=== PATIENT | male | born 1935 | race Caucasian/White ===

== ENCOUNTER 2016-09-09 18:33 | Emergency (ER) | payer MEDICARE ==
--- NOTE | 2016-09-09 18:46 | ED.PDOC ---
History of Present Illness - General Chief Complaint: General Time Seen by Provider: 09/09/16 18:40 Source: patient, RN notes reviewed, Vital Signs reviewed, family Exam Limitations: no limitations - History of Present Illness Initial Comments: This 81 y/o male has been increasingly weak over the past 2 days. Today, he has been unable to walk very far without feeling like he was going to fall due to weakness. He denies any chest pain. He has a "funny feeling" in his extremities when this happens like when you hit your funny bone. He has a history of NE 4 years ago. Timing/Duration: getting worse, other - 2 days Severity: severe Improving Factors: nothing Worsening Factors: movement Allergies/Adverse Reactions: Allergies NO KNOWN ALLERGY Allergy (Verified 09/09/16 18:47) Home Medications: Ambulatory Orders Cyanocobalamin [Vitamin B-12 Cr] 1,000 mcg PO DAILY 03/04/16 Gabapentin [Neurontin] 100 mg PO BEDTIME 03/04/16 Lovastatin 40 mg PO DAILY 03/04/16 Metoprolol Tartrate 25 mg PO BID 03/04/16 Ramipril [Altace] 5 mg PO DAILY 03/04/16 Tamsulosin [Flomax] 0.4 mg PO DAILY 03/04/16 glyBURIDE [Diabeta] 10 mg PO DAILY 03/04/16 Omeprazole Magnesium [Prilosec Otc] 20 mg PO BID #60 tab 03/05/16 Albuterol Sulfate [Proair Hfa] 2 puff INH Q6H PRN #1 07/23/16 Calcium Carb 500Mg-Vitamin D [Oscal 500mg w/D] 1 ea PO DAILY 07/23/16 Carbonyl Iron [Perfect Iron] 50 mg PO DAILY 07/23/16 Cefuroxime Axetil [Ceftin] 500 mg PO BID #14 tab 07/23/16 Dextromet/Guaifenesin 600/30 T [Mucinex Dm 600/30MG] 1 tab PO BID #30 tab Past Medical History (General) - Patient Medical History Hx Seizures: No Hx Stroke: No Hx Asthma: No Hx of COPD: No Hx Cardiac Disorders: Yes - NE x 2 Hx Congestive Heart Failure: No Hx Pacemaker: No Hx Hypertension: No Hx Diabetes: Yes Hx Cancer: Yes - Prostate Hx MRSA: No - Vaccination History Hx Tetanus, Diphtheria Vaccination: Yes Hx Influenza Vaccination: Yes Hx Pneumococcal Vaccination: Yes - Social History Hx Tobacco Use: No Hx Alcohol Use: No Hx Substance Use: No Hx Physical Abuse: No Hx Emotional Abuse: No Family Medical History - Family History Father Family History: Unknown Living Status: Hx Family Cancer: Yes - unknown cause Physical Exam - Physical Exam General Appearance: Alert, No apparent distress Ears, Nose, Throat: hearing grossly normal Respiratory: lungs clear, normal breath sounds, no respiratory distress, no accessory muscle use Cardiovascular/Chest: regular rate, rhythm, no edema, no gallop, systolic murmur - II/ Gastrointestinal/Abdominal: normal bowel sounds, non tender, soft, no organomegaly, no pulsatile mass Extremity: non-tender, normal inspection, no pedal edema, no calf tenderness, other - Normal strength all four extremities Neurologic: no motor/sensory deficits, alert, normal mood/affect, oriented x 3 Skin Exam: normal color, warm/dry Progress - Results/Orders Results/Orders: 09/09/16 09/09/16 09/09/16 18:47 19:29 21:08 Temperature 98 F Pulse Rate [ 68 56 L 66 Left Radial] Respiratory 18 18 16 Rate Blood Pressure 148/79 150/71 128/64 [Left Arm] O2 Sat by Pulse 92 L 92 L 92 L Oximetry 09/09/16 21:59 Temperature Pulse Rate [ 62 Left Radial] Respiratory 16 Rate Blood Pressure 139/74 [Left Arm] O2 Sat by Pulse 100 Oximetry 09/09/16 21:45 EKG STAT 09/09/16 21:50 Magnesium Sulfate Premix 2Gm 2 gm Premix Bag 1 bag IVPB ONCE Laboratory Results WBC 7.1 K/mm3 (4.8-10.8) 09/09/16 18:55 RBC 3.94 M/mm3 (4.70-6.10) L 09/09/16 18:55 Hgb 12.9 gm/dL (14.0-18.0) L 09/09/16 18:55 Hct 38.6 % (42.0-52.0) L 09/09/16 18:55 MCV 98.1 fl (80.0-94.0) H 09/09/16 18:55 MCH 32.7 pg (27.0-31.0) H 09/09/16 18:55 MCHC 33.4 g/dL (33.0-37.0) 09/09/16 18:55 RDW 14.5 % (11.5-14.5) 09/09/16 18:55 Plt Count 153 K/mm3 (130-400) 09/09/16 18:55 MPV 7.9 fl (7.40-10.4) 09/09/16 18:55 Absolute Neuts (auto) 4.30 K/uL (1.8-6.8) 09/09/16 18:55 Absolute Lymphs (auto) 2.00 K/uL (1.0-3.4) 09/09/16 18:55 Absolute Monos (auto) 0.70 K/uL (0.2-0.8) 09/09/16 18:55 Absolute Eos (auto) 0.10 K/uL (0.0-0.4) 09/09/16 18:55 Absolute Basos (auto) 0.00 K/uL (0.0-0.1) 09/09/16 18:55 Neutrophils % 60.2 % (42.0-78.0) 09/09/16 18:55 Lymphocytes % 28.0 % (20.0-50.0) 09/09/16 18:55 Monocytes % 10.1 % (2.0-9.0) H 09/09/16 18:55 Eosinophils % 1.1 % (1.0-5.0) 09/09/16 18:55 Basophils % 0.6 % (0.0-2.0) 09/09/16 18:55 PT 12.6 SECONDS (9.4-12.5) H 09/09/16 18:55 INR 1.120 09/09/16 18:55 PTT (SP) 34.2 SECONDS (25.1-36.5) 09/09/16 18:55 Sodium 137 mmol/L (135-145) 09/09/16 18:55 Potassium 3.8 mmol/L (3.6-5.0) 09/09/16 18:55 Chloride 104 mmol/L (101-111) 09/09/16 18:55 Carbon Dioxide 27 mmol/L (21-31) 09/09/16 18:55 Anion Gap 9.8 (12-18) L 09/09/16 18:55 BUN 17 mg/dL (7-18) 09/09/16 18:55 Creatinine 1.40 mg/dL (0.6-1.3) H 09/09/16 18:55 BUN/Creatinine Ratio 12.1 (10-20) 09/09/16 18:55 Random Glucose 119 mg/dL (70-105) H 09/09/16 18:55 Serum Osmolality 276.5 mOsm/L (275-295) 09/09/16 18:55 Calcium 9.1 mg/dL (8.4-10.2) 09/09/16 18:55 Magnesium 1.6 mg/dL (1.8-2.5) L 09/09/16 18:55 Total Bilirubin 0.5 mg/dL (0.2-1.0) 09/09/16 18:55 Direct Bilirubin 0.1 mg/dL (0-0.2) 09/09/16 18:55 Indirect Bilirubin 0.4 mg/dL (0.2-0.8) 09/09/16 18:55 AST 25 IU/L (10-42) 09/09/16 18:55 ALT 11 IU/L (10-60) 09/09/16 18:55 Alkaline Phosphatase 44 IU/L (42-121) 09/09/16 18:55 Creatine Kinase 95 IU/L (38-174) 09/09/16 21:55 CK-MB (CK-2) 2.8 ng/mL (0.0-4.4) 09/09/16 21:55 CK-MB (CK-2) % Not Reportable 09/09/16 21:55 Troponin I 0.02 ng/mL (0.01-0.05) 09/09/16 21:55 B-Natriuretic Peptide 503.0 pg/ml (0-100) H* 09/09/16 18:55 Serum Total Protein 8.6 gm/dL (6.4-8.2) H 09/09/16 18:55 Albumin 3.1 g/dl (3.2-5.5) L 09/09/16 18:55 Urine Color Yellow (Yellow) 09/09/16 19:15 Urine Appearance Clear (Clear) 09/09/16 19:15 Urine pH 6.0 (4.5-7.8) 09/09/16 19:15 Ur Specific [place] 1.010 (1.005-1.030) 09/09/16 19:15 Urine Protein 30 mg/dL 09/09/16 19:15 Urine Glucose (UA) Negative mg/dL (Negative) 09/09/16 19:15 Urine Ketones Negative mg/dL (NEGATIVE) 09/09/16 19:15 Urine Blood Moderate (Negative) H 09/09/16 19:15 Urine Nitrite Negative 09/09/16 19:15 Urine Bilirubin Negative (NEGATIVE) 09/09/16 19:15 Urine Urobilinogen 0.2 mg/dL (0.2-1.0) 09/09/16 19:15 Ur Leukocyte Esterase Negative (Negative) 09/09/16 19:15 Urine RBC 5-10 /hpf H 09/09/16 19:15 Urine WBC 0-1 /hpf 09/09/16 19:15 Ur Epithelial Cells 0-1 /hpf 09/09/16 19:15 Urine Bacteria 0 09/09/16 19:15 - EKG/XRAY/CT EKG: Sinus - 64 bpm, nonspecific ST T wave Chg - T-wave inversion in II, III, aVF, Unchanged from - 04/20/2014 and 02/07/2014 Comments: Nonspecific intraventricular block, Normal axis, Abn EKG XRAY: chest Xray Comments: No acute process - Additional EKG/XRAY/Consults EKG #2: Sinus - 64, nonspecific ST T wave Chg - T-wave inversion II, III, aVF, Nonspecific intraventricular block, Abn EKG, Unchanged from - EKG #1 Departure - Departure Clinical Impression: Generalized weakness, Hypomagnesemia, Acute renal insufficiency, Elevated brain natriuretic peptide (BNP) level Time of Disposition: 22:53 Disposition: Discharge to Home or Self Care Condition: Good Departure Forms: ED Discharge - Pt. Copy, Patient Portal Self Enrollment Diet: diabetic diet, low salt diet Referrals: Britton Miller MD [Primary Care Provider] - 1-2 Days (Patient with episodic weakness. Elevated BNP, renal insufficiency, hypomagnesemia. Magnesium 1 gm infused.) Home Medications: Ambulatory Orders Cyanocobalamin [Vitamin B-12 Cr] 1,000 mcg PO DAILY 03/04/16 Gabapentin [Neurontin] 100 mg PO BEDTIME 03/04/16 Lovastatin 40 mg PO DAILY 03/04/16 Metoprolol Tartrate 25 mg PO BID 03/04/16 Ramipril [Altace] 5 mg PO DAILY 03/04/16 Tamsulosin [Flomax] 0.4 mg PO DAILY 03/04/16 glyBURIDE [Diabeta] 10 mg PO DAILY 03/04/16 Omeprazole Magnesium [Prilosec Otc] 20 mg PO BID #60 tab 03/05/16 Albuterol Sulfate [Proair Hfa] 2 puff INH Q6H PRN #1 07/23/16 Calcium Carb 500Mg-Vitamin D [Oscal 500mg w/D] 1 ea PO DAILY 07/23/16 Carbonyl Iron [Perfect Iron] 50 mg PO DAILY 07/23/16 Cefuroxime Axetil [Ceftin] 500 mg PO BID #14 tab 07/23/16 Dextromet/Guaifenesin 600/30 T [Mucinex Dm 600/30MG] 1 tab PO BID #30 tab Additional Instructions: Follow up with your PCP tomorrow for further evaluation. Follow up in ED if symptoms return.
[2016-09-09 18:52] VITALS: TEMP 98
--- NOTE | 2016-09-09 19:16 | RAD ---
EXAM DESCRIPTION: Chest,1 View CLINICAL HISTORY: weakness/hx of mi COMPARISON: July 23, 2016 FINDINGS: Cardiac silhouette is within normal limits. Aorta is tortuous. There is atherosclerosis. Nodular opacity projecting between the fifth and sixth right anterior ribs suggests a nipple shadow. There is mild elevation of the left hemidiaphragm, unchanged compared with the prior exam. There is no focal parenchymal or pleural disease. There is no acute osseous process visualized. IMPRESSION: No evidence of acute cardiopulmonary disease. Electronically signed by: Jak Reinoso MD 09/09/2016 5:16 PM PST
[2016-09-09] MEDS ORDERED: MAGNESIUM SULFATE PREMIX 2GM 2 GM in PREMIX BAG 1 BAG IVPB ONE (21:50)
[2016-09-09] MEDS ORDERED: MAGNESIUM SULFATE PREMIX 2GM 50 ML IVPB ONE (21:53)
[2016-09-09 23:05] VITALS: BP 135/72; O2SAT 99
== END 2016-09-09 23:05 | disposition home or self-care (01) ==
LOC: ER 18:33
DX: E83.42 Hypomagnesemia (principal); N28.9 Disorder of kidney and ureter, unspecified; R79.89 Other specified abnormal findings of blood chemistry; I25.2 Old myocardial infarction; E11.9 Type 2 diabetes mellitus without complications; Z85.46 Personal history of malignant neoplasm of prostate; Z79.899 Other long term (current) drug therapy; I45.4 Nonspecific intraventricular block
CPT/HCPCS: 36415; 71010; 80048; 80076; 81001; 82550; 82553; 83880; 84484; 85025; 85610; 85730; 93005; J3475

== ENCOUNTER → 2016-09-10 | Outpatient (CLI) | payer MEDICARE | LOC: GMAM 16:52 | PROVIDERS: ATTEND Family Medicine | DX: R31.21 Asymptomatic microscopic hematuria (principal); N17.9 Acute kidney failure, unspecified ==

== ENCOUNTER → 2016-09-16 | Outpatient (CLI) | payer MEDICARE ==
--- NOTE | 2016-09-16 11:40 | CT ---
EXAM DESCRIPTION: CT ABDOMEN PELVIS WITHOUT THEN WITH IV CONTRAST CLINICAL HISTORY: 81 y/o M, ACUTE RENAL INSUFFIENCY COMPARISON: May 2014 TECHNIQUE: Prior to and after the administration of IV contrast volumetric imaging of the abdomen was performed. FINDINGS: Large right lower pole renal stone measuring 1.2 cm in diameter. Tiny 2 mm left mid segment renal stone. The spleen, bilateral adrenal glands and pancreas are unremarkable peer bilateral kidneys enhance unremarkably. No mass noted. Bilateral extra renal pelvises. The liver demonstrates no evidence of mass. Gallbladder is present. Atherosclerotic disease noted within an ectatic infrarenal abdominal aorta. Prostate radiation beads noted. The prostate is enlarged measuring 5.2 cm in diameter. Urinary bladder is unremarkable. No pulmonary mass or nodule is seen within bilateral lung bases. Inflammatory changes seen adjacent to large thoracic osteophytes within the medial right lung base. IMPRESSION: Large 1.2 cm right lower pole renal stone. 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 Electronically signed by: Jhonny Nova MD 09/16/2016 11:38
== END ==
LOC: CT 08:51
PROVIDERS: ATTEND Family Medicine
DX: N17.9 Acute kidney failure, unspecified (principal); N20.0 Calculus of kidney; I70.0 Atherosclerosis of aorta; M47.896 Other spondylosis, lumbar region

== ENCOUNTER → 2016-09-23 | Outpatient (CLI) | payer MEDICARE | END | disposition home or self-care (01) | LOC: GMAM 15:55 | PROVIDERS: ATTEND Family Medicine | DX: E83.42 Hypomagnesemia (principal) ==

== ENCOUNTER → 2016-10-01 | Outpatient (CLI) | payer MEDICARE | END | disposition home or self-care (01) | LOC: GMAM 11:20 | PROVIDERS: ATTEND Family Medicine | DX: R77.8 Other specified abnormalities of plasma proteins (principal) ==

== ENCOUNTER → 2016-10-02 | Outpatient (CLI) | payer MEDICARE ==
--- NOTE | 2016-10-03 09:03 | RAD ---
EXAM DESCRIPTION: Abdomen radiography. CLINICAL HISTORY: Renal stone COMPARISON: September 16, 2016 TECHNIQUE: One view. FINDINGS: Large right renal calcifications measuring 12 mm in diameter again noted. Bowel gas pattern is non-obstructed. There is no obvious free intraperitoneal air. Visualized segments of the abdominal organs are unremarkable. No suspicious bone lesion or fracture is seen. IMPRESSION: Large 12 mm right renal calculus noted. A fair amount of air is noted within the colon and small bowel. Electronically signed by: Jhonny Nova MD 10/03/2016 09:02
== END | disposition home or self-care (01) ==
LOC: RAD 14:55
PROVIDERS: ATTEND Urology
DX: N20.0 Calculus of kidney (principal); Z12.5 Encounter for screening for malignant neoplasm of prostate

== ENCOUNTER 2016-10-16 12:07 | Emergency (ER) | payer MEDICARE ==
[2016-10-16] MEDS ORDERED: ASPIRIN TABLET 325 MG TAB PO ONE (12:24)
[2016-10-16] MEDS ORDERED: FUROSEMIDE INJ 40 MG/4 ML VIAL IV ONE (12:24)
[2016-10-16] MEDS ORDERED: NITROGLYCERIN/D5W IV 250 ML IVS ONE (12:27)
[2016-10-16] MEDS ORDERED: SODIUM CHLORIDE 0.9% 500ML 500 ML ONE (12:28)
[2016-10-16 12:31] VITALS: TEMP 98.8
--- NOTE | 2016-10-16 12:47 | RAD ---
Study: Single Frontal View of the Chest. Indication:sob, chest pain Comparison: September 09, 2016. Impression: Moderate cardiomegaly. Thoracic aorta tortuous. Mild interstitial edema. Mild basilar opacities, which may relate to pneumonia or atelectasis. Short-term follow up recommended. Tiny right pleural effusion. No pneumothorax. Electronically signed by: Antonio Dominguez MD 10/16/2016 12:46 PM EXERCISE SPECIALIST
[2016-10-16] MEDS ORDERED: SODIUM CHLORIDE 0.9% 500ML 500 ML IVS PRN (12:48)
[2016-10-16] MEDS ORDERED: NITROGLYCERIN/D5W IV 250 ML IVS SCH (13:00)
[2016-10-16] MEDS ORDERED: fentaNYL CITRATE INJ 50 MCG/ML AMP IV ONE (13:41)
[2016-10-16] MEDS ORDERED: ONDANSETRON INJ 4 MG/2 ML VIAL IV ONE (13:43)
[2016-10-16] MEDS ORDERED: HEPARIN SODIUM (PORCINE) 5,000 U/ML VIAL IV ONE (14:06)
--- NOTE | 2016-10-16 14:17 | ED.PDOC ---
History of Present Illness - General Chief Complaint: Respiratory Problem Stated Complaint: shortness of breath,left sided chest pain Time Seen by Provider: 10/16/16 12:12 Source: patient Exam Limitations: no limitations - History of Present Illness Initial Comments: the patient is an 81-year-old male presenting to the emergency room secondary to chest pain and shortness of breath. He started developing chest pain yesterday that is precordial and squeezing. This has progressed to significant shortness of breath with the production of clear white sputum. He is more short of breath with activity and with lying back. He is in significant distress upon arrival. Oxygen saturations on room air upon arrival are around 80%. Oxygen at 6 L nasal cannula only brought up the oxygen saturations to around 83%. The patient has coarse wet rales bilaterally. He has increased accessory muscle use. He has nasal flaring. He is obviously anxious. He is writing the chest pain at approximately a 8-9 out of 10 at its worst. No syncope. He has felt palpitations. Telemetry monitoring does show atrial fibrillation with frequent PVCs initially. After oxygenating the patient has reverted back to a sinus rhythm with PACs. Timing/Duration: 24 hours Severity: severe Improving Factors: nothing Worsening Factors: movement Associated Symptoms: diaphoresis, malaise, shortness of breath, weakness Allergies/Adverse Reactions: Allergies NO KNOWN ALLERGY Allergy (Verified 09/09/16 18:47) Home Medications: Ambulatory Orders Cyanocobalamin [Vitamin B-12 Cr] 1,000 mcg PO DAILY 03/04/16 Gabapentin [Neurontin] 100 mg PO BEDTIME 03/04/16 Lovastatin 40 mg PO DAILY 03/04/16 Metoprolol Tartrate 25 mg PO BID 03/04/16 Ramipril [Altace] 5 mg PO DAILY 03/04/16 Tamsulosin [Flomax] 0.4 mg PO DAILY 03/04/16 glyBURIDE [Diabeta] 10 mg PO DAILY 03/04/16 Omeprazole Magnesium [Prilosec Otc] 20 mg PO BID #60 tab 03/05/16 Albuterol Sulfate [Proair Hfa] 2 puff INH Q6H PRN #1 07/23/16 Calcium Carb 500Mg-Vitamin D [Oscal 500mg w/D] 1 ea PO DAILY 07/23/16 Carbonyl Iron [Perfect Iron] 50 mg PO DAILY 07/23/16 Cefuroxime Axetil [Ceftin] 500 mg PO BID #14 tab 07/23/16 Dextromet/Guaifenesin 600/30 T [Mucinex Dm 600/30MG] 1 tab PO BID #30 tab Review of Systems - Review of Systems Constitutional: States: diaphoresis, malaise, weakness EENTM: States: no symptoms reported Respiratory: States: cough, orthopnea, short of breath Cardiology: States: chest pain, palpitations. Denies: edema, syncope Gastrointestinal/Abdominal: States: nausea - mild Genitourinary: States: no symptoms reported Musculoskeletal: States: no symptoms reported Skin: States: no symptoms reported Neurological: States: anxiety Endocrine: States: excessive sweating All other Systems: No Change from Baseline Past Medical History (General) - Patient Medical History Hx Seizures: No Hx Stroke: No Hx Dementia: No Hx Asthma: No Hx of COPD: No Hx Cardiac Disorders: Yes - [place] x 2 Hx Congestive Heart Failure: No Hx Pacemaker: No Hx Hypertension: No Hx Thyroid Disease: No Hx Diabetes: Yes Hx Gastroesophageal Reflux: Yes Hx Renal Disease: No Hx Cancer: Yes - Prostate Hx of HIV: No Hx Hepatitis C: No Hx MRSA: No - Vaccination History Hx Tetanus, Diphtheria Vaccination: Yes Hx Influenza Vaccination: Yes Hx Pneumococcal Vaccination: Yes - Social History Hx Tobacco Use: Yes Hx Chewing Tobacco Use: No Hx Alcohol Use: No Hx Substance Use: No Hx Substance Use Treatment: No Hx Depression: No Hx Physical Abuse: No Hx Emotional Abuse: No Hx Suspected Abuse: No - Female History Patient : No Family Medical History - Family History Father Family History: Unknown Living Status: Hx Family Cancer: Yes - unknown cause Physical Exam - Physical Exam General Appearance: Alert, Anxious, Obvious distress Eye Exam: bilateral normal Ears, Nose, Throat: normal ENT inspection, normal pharynx Neck: full range of motion, supple, other - the patient does have obvious JVD Respiratory: chest non-tender, other - coarse breath sounds bilaterally. Significant accessory muscle use. Significant respiratory distress. No wheezes. 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 The patient is found to be in pulmonary edema with significant respiratory distress. The patient has required BiPAP with a gradually been able to titrate down from 100% FiO2 to 60% FiO2. Symptoms are improving. The patient has received a dose of Lasix and has diuresed approximately 600 cc. Due to the chest pain the patient was started on IV nitroglycerin which has also helped. The patient is receiving a dose of IV heparin. He has received a dose of IV fentanyl. Chest pain is improving and respiratory status is improving. He is still running his chest pain at a 2/10 at this time. Diagnosis is pulmonary edema and unstable angina. He has received an aspirin. I have discussed the patient with Dr. Armendariz as well as the supervisor public message service. The patient will be transferred for higher level of care. 10/16/16 14:22 critical care time spent with this patient 50 minutes on not otherwise billable procedures. - Results/Orders Results/Orders: 10/16/16 12:23 Telemetry .CONTINUOUS 10/16/16 12:48 Sodium Chloride 0.9% 500Ml [NS 500ml] 500 ml IVS .KVO 10/16/16 13:00 Nitroglycerin/D5w IV 250 ml IVS PRN 10/16/16 14:00 EKG STAT several EKGs have been performed. The initial shows atrial fibrillation with mild rapid ventricular rate with PACs. After oxygen and started the patient appears to be cardioverting back to a sinus rhythm with frequent PVCs and PACs with these gradually. Now. There is some significant widening of the QRS complex in comparison to EKG from 1 month ago. No definite ST segment elevation or depression and initial EKGs however artifact from respiratory distress makes it somewhat difficult to interpret. He does have a left bundle-branch block. He does have corresponding left axis deviation. Laboratory Results - last 24 hr 10/16/16 10/16/16 12:40 13:49 WBC 10.5 RBC 3.97 L Hgb 13.0 L Hct 39.1 L MCV 98.3 H MCH 32.7 H MCHC 33.4 RDW 14.4 Plt Count 160 MPV 8.0 Absolute Neuts (auto) 6.80 Absolute Lymphs (auto) 2.80 Absolute Monos (auto) 0.80 Absolute Eos (auto) 0.10 Absolute Basos (auto) 0.00 Neutrophils % 64.8 Lymphocytes % 26.4 Monocytes % 8.0 Eosinophils % 0.6 L Basophils % 0.2 PT 12.6 H INR 1.120 PTT (SP) 29.8 D-Dimer, Quantitative 235 H* Sodium 139 Potassium 3.8 Chloride 104 Carbon Dioxide 27 Anion Gap 11.8 L BUN 16 Creatinine 0.94 BUN/Creatinine Ratio 17.0 POC Glucose 188 H Random Glucose 176 H Serum Osmolality 283.0 Calcium 9.1 Magnesium 1.6 L Total Bilirubin 0.5 AST 20 ALT 12 Alkaline Phosphatase 49 Creatine Kinase 86 CK-MB (CK-2) 2.8 CK-MB (CK-2) % Not Reportable Troponin I < 0.02 B-Natriuretic Peptide 672.0 H* Serum Total Protein 9.0 H Albumin 3.2 Globulin 5.8 H Albumin/Globulin Ratio 0.6 L chest x-ray is consistent with pulmonary edema with a small right-sided pleural effusion. No obvious pneumonia. Departure - Departure Clinical Impression: Unstable angina Pulmonary edema Qualifiers: Chronicity: acute Qualifier Code: (J81.0) Acute pulmonary edema Disposition: Transfer to Hospital Condition: Serious Home Medications: Ambulatory Orders Cyanocobalamin [Vitamin B-12 Cr] 1,000 mcg PO DAILY 03/04/16 Gabapentin [Neurontin] 100 mg PO BEDTIME 03/04/16 Lovastatin 40 mg PO DAILY 03/04/16 Metoprolol Tartrate 25 mg PO BID 03/04/16 Ramipril [Altace] 5 mg PO DAILY 03/04/16 Tamsulosin [Flomax] 0.4 mg PO DAILY 03/04/16 glyBURIDE [Diabeta] 10 mg PO DAILY 03/04/16 Omeprazole Magnesium [Prilosec Otc] 20 mg PO BID #60 tab 03/05/16 Albuterol Sulfate [Proair Hfa] 2 puff INH Q6H PRN #1 07/23/16 Calcium Carb 500Mg-Vitamin D [Oscal 500mg w/D] 1 ea PO DAILY 07/23/16 Carbonyl Iron [Perfect Iron] 50 mg PO DAILY 07/23/16 Cefuroxime Axetil [Ceftin] 500 mg PO BID #14 tab 07/23/16 Dextromet/Guaifenesin 600/30 T [Mucinex Dm 600/30MG] 1 tab PO BID #30 tab Transfer to Outside Facility - Transfer Information Accepting Provider:: dr thrasher Accepting Facility: [facility] Reason for Transfer: ICU
[2016-10-16] MEDS ORDERED: METOPROLOL TARTRATE 25 MG TAB PO ONE (15:56)
[2016-10-16 18:11] VITALS: BP 128/69; O2SAT 92
== END 2016-10-16 16:50 | disposition short-term general hospital (02) ==
LOC: ER 12:07
DX: I20.0 Unstable angina (principal); J81.0 Acute pulmonary edema; E11.9 Type 2 diabetes mellitus without complications; K21.9 Gastro-esophageal reflux disease without esophagitis; Z85.46 Personal history of malignant neoplasm of prostate; Z87.891 Personal history of nicotine dependence; I25.2 Old myocardial infarction; Z79.899 Other long term (current) drug therapy; I44.7 Left bundle-branch block, unspecified
CPT/HCPCS: 36415; 36416; 71010; 80053; 82550; 82553; 82948; 83735; 83880; 84484; 85025; 85379; 85610; 85730; 93005; 94660; J1644; J1940; J2405; J3010; J7040

== ENCOUNTER → 2016-12-04 | Outpatient (CLI) | payer MEDICARE | END | disposition home or self-care (01) | LOC: GRHH 08:56 | PROVIDERS: ATTEND Family Medicine | DX: E11.9 Type 2 diabetes mellitus without complications (principal) ==

== ENCOUNTER → 2016-12-11 | Outpatient (CLI) | payer MEDICARE ==
--- NOTE | 2016-12-11 19:10 | CT ---
EXAM DESCRIPTION: Chest w/Contrast CLINICAL HISTORY: 81 years,Male,OTHER ABNORMAL SPECIFIC FINDING COMPARISON: None TECHNIQUE: Multiple axial helical tomographic images were obtained of the chest with IV contrast and then reconstructed in the sagittal and coronal plane FINDINGS: Demonstrate a small opacity in the medial right base measuring 1.4 cm about this in size. And runs in a linear plane paralleling the spine. There are some very small miliary nodular density seen in the posterior left base and to a lesser degree the posterior right base. No other consolidations or effusions. No pneumothoraces. Mediastinum demonstrates no adenopathy or masses. Heart size and pulmonary vascularity are unremarkable. But there is heavy calcified coronary arteries Upper abdominal organs included in the exam are unremarkable. Soft tissues and bony elements are unremarkable. Right posterior mid back 1.2 cm dermal cyst IMPRESSION: Small opacification in the medial right base. An multiple tiny nodular densities in both posterior bases worse than left. Recommend follow-up CT scan in 3-6 months. This could be just scarring in addition to past or current atypical infection cannot include neoplasm Electronically signed by: Devyn Ngo MD 12/11/2016 7:09 PM CDT
== END ==
LOC: CT 08:41
PROVIDERS: ATTEND Family Medicine
DX: J44.0 Chronic obstructive pulmonary disease with (acute) lower respiratory infection (principal); R91.8 Other nonspecific abnormal finding of lung field

== ENCOUNTER 2016-12-13 10:48 | Inpatient (IN) | payer MEDICARE ==
--- NOTE | 2016-12-13 11:39 | CT ---
EXAM DESCRIPTION: Head CLINICAL HISTORY: 81 years, Male, ams COMPARISON: February 07, 2014 TECHNIQUE: Head CT was performed without IV contrast. This exam was performed according to our departmental dose-optimization program, which includes automated exposure control, adjustment of the mA and/or kV according to patient size and/or use of iterative reconstruction technique. FINDINGS: There is no acute intracranial hemorrhage. Generalized age-appropriate volume loss is noted with mild ex vacuo prominence of the ventricular system. No posterior fossa lesion. Chronic ischemic changes are noted in the perirenal right matter, but there is no cortical edema or sulcal effacement to suggest acute cortical infarct. The basal ganglia are unremarkable. There is some benign-appearing calcification along the falx. Vascular calcifications are noted. Visualized paranasal sinuses and orbits are unremarkable. Is no calvarial lesion. IMPRESSION: Generalized age-appropriate volume loss, vascular calcifications and chronic ischemic changes, but no acute intracranial abnormality. If symptoms persist or worsen, followup head CT in 24 hr or MRI is recommended. Electronically signed by: Ramakrishna Pierre MD 12/13/2016 11:38 AM CDT
--- NOTE | 2016-12-13 11:43 | RAD ---
EXAM DESCRIPTION: Chest,1 View CLINICAL HISTORY: ams COMPARISON: October 16, 2016 IMPRESSION: Single AP portable upright view of the chest shows mild enlargement of the cardiac silhouette without pulmonary vascular congestion. Calcifications of a tortuous thoracic aorta are seen. Lungs are normally aerated with chronic appearing increased interstitial changes more prominent in the left lower lobe. No new infiltrates or consolidations are seen. No obvious pleural effusion or pneumothorax is seen. Electronically signed by: Ulises Ji MD 12/13/2016 11:43 AM CDT
[2016-12-13] MEDS ORDERED: SODIUM CHLORIDE 0.9% 1000ML 500 ML IVS ONE (12:10)
[2016-12-13] MEDS ORDERED: cefTRIAXone SODIUM 1 GM in SODIUM CHL 0.9% 50ML MIN-BAG+ 50 ML IVPB ONE (12:10)
[2016-12-13] MEDS ORDERED: cefTRIAXone SODIUM 1 GM VIAL ONE (12:16)
--- NOTE | 2016-12-13 15:32 | ED.PDOC ---
History of Present Illness - General Chief Complaint: Neuro Symptoms/Deficits Stated Complaint: Falls x 2. Change in level of consciousness Time Seen by Provider: 12/13/16 11:01 Source: patient Exam Limitations: no limitations - History of Present Illness Initial Comments: The patient is an 81-year-old male brought in by his family this morning secondary to altered mental status. The patient has had several falls in the last few days. He has shown some increasing confusion over the last 24- 48 hours. There've been no fevers. He has not been complaining of pain. There has been questionable use of his sleeping medications. He has not had any chest pain, fever or headache. No focal neurological changes. No feeling of palpitations. He does however have some difficulty with urinating and does have some suprapubic discomfort palpation over what is obviously a distended bladder. The patient apparently spent the night in a laundry basket. At some point he had gotten up and falling into the laundry basket and was unable to get out. About 1-2 months ago additionally the patient was sent to [facility] for sepsis with associated congestive heart failure. It is likely that he does have an ischemic cardiomyopathy and Dr. Armendariz does want to do a workup on the patient however not while he has other processes going. The source of sepsis a few months ago was a pneumonia. The patient also has a history of BPH and has been having some difficulty with urination for some time. Timing/Duration: 24 hours Severity: moderate Improving Factors: nothing Worsening Factors: nothing Associated Symptoms: malaise, weakness Allergies/Adverse Reactions: Allergies NO KNOWN ALLERGY Allergy (Verified 09/09/16 18:47) Home Medications: Ambulatory Orders Cyanocobalamin [Vitamin B-12 Cr] 1,000 mcg PO DAILY 03/04/16 Lovastatin 40 mg PO DAILY 03/04/16 Metoprolol Tartrate 25 mg PO BID 03/04/16 Ramipril [Altace] 5 mg PO DAILY 03/04/16 Tamsulosin [Flomax] 0.4 mg PO DAILY 03/04/16 glyBURIDE [Diabeta] 10 mg PO DAILY 03/04/16 Omeprazole Magnesium [Prilosec Otc] 20 mg PO BID #60 tab 03/05/16 Calcium Carb 500Mg-Vitamin D [Oscal 500mg w/D] 1 ea PO DAILY 07/23/16 Carbonyl Iron [Perfect Iron] 50 mg PO DAILY 07/23/16 Umeclidinium-Vilanterol [Anoro Ellipta 62.5-25 Mcg/INH] 1 aer INH DAILY Review of Systems - Review of Systems Constitutional: States: malaise, weakness EENTM: States: no symptoms reported Respiratory: States: no symptoms reported Cardiology: States: no symptoms reported Gastrointestinal/Abdominal: States: abdominal pain - suprapubic due to urinary retention Genitourinary: States: see HPI Musculoskeletal: States: muscle pain - from being in a laundry basket all night Skin: States: no symptoms reported Neurological: States: anxiety, other - delirium Endocrine: States: no symptoms reported All other Systems: No Change from Baseline Past Medical History (General) - Patient Medical History Hx Seizures: No Hx Stroke: No Hx Dementia: No Hx Asthma: No Hx of COPD: No Hx Cardiac Disorders: Yes - VT x 2 Hx Congestive Heart Failure: No Hx Pacemaker: No Hx Hypertension: No Hx Thyroid Disease: No Hx Diabetes: Yes Hx Gastroesophageal Reflux: Yes Hx Renal Disease: No Hx Cancer: Yes - Prostate Hx of HIV: No Hx Hepatitis C: No Hx MRSA: No - Vaccination History Hx Tetanus, Diphtheria Vaccination: Yes Hx Influenza Vaccination: Yes Hx Pneumococcal Vaccination: Yes - Social History Hx Tobacco Use: Yes Hx Chewing Tobacco Use: No Hx Alcohol Use: No Hx Substance Use: No Hx Substance Use Treatment: No Hx Depression: No Hx Physical Abuse: No Hx Emotional Abuse: No Hx Suspected Abuse: No - Female History Patient : No Family Medical History - Family History Father Family History: Unknown Living Status: Hx Family Cancer: Yes - unknown cause Physical Exam - Physical Exam General Appearance: Lethargic - the patient is drowsy but arousable and cooperative. He knows he is at the [facility]. He recognizes his family members. He went to know if he is hurting anywhere. He is unable to urinate on his own even though he is trying. He is very weak with attempting to ambulate. He does become easily confused. Eye Exam: right normal Ears, Nose, Throat: hearing grossly normal, normal ENT inspection - nevus membranes are mildly dry, other - no evidence of head trauma Neck: non-tender, full range of motion, supple, other - o tenderness to palpation. No obvious trauma. No meningeal signs. Respiratory: chest non-tender, lungs clear, normal breath sounds, no respiratory distress, no accessory muscle use Cardiovascular/Chest: normal peripheral pulses, regular rate, rhythm, no edema Peripheral Pulses: radial,right: 2+, radial,left: 2+, dorsalis pedis,right: 2+, dorsalis pedis,left: 2+ Gastrointestinal/Abdominal: soft, other - bladder is uncomfortable to palpation but otherwise nontender to palpation of the abdomen Rectal Exam: deferred Back Exam: normal inspection, no vertebral tenderness, other - the patient is a little bit sore in palpating the area that was apparently against a laundry basket Extremity: normal range of motion, non-tender, normal inspection, no pedal edema , no calf tenderness, normal capillary refill Neurologic: alert, normal mood/affect, oriented x 3 Skin Exam: normal color Comments: Vital Signs - 24 hr 12/13/16 13:07 Pulse Rate [ 96 H Apical] Respiratory 18 Rate Blood Pressure 118/71 [Right Arm] O2 Sat by Pulse 95 Oximetry Progress - Progress Progress: 12/13/16 15:40 the patient is an 81-year-old male presenting with a complicated clinical picture. The patient is obviously having some lethargy and at least some mild delirium. The source of this is not entirely certain. It is possible he may have some mild early sepsis from an unknown source. His lungs and urine do appear fairly clear. The patient has been cultured. He has been started on Rocephin. He has received a small IV fluid bolus as he was significantly dehydrated. The patient is receiving a bilateral lower extremity ultrasound due to the fact that he was in a laundry basket overnight which places him at high risk for the development of a DVT. The patient does have elevated muscle enzymes which are at least mostly due to rhabdomyolysis from his multiple falls including being stuck in a laundry basket overnight. The elevated troponin is most likely an insult due to acute illness rather than acute coronary syndrome. He does likely have some coronary artery disease. The patient has been discussed with Dr. Armendariz his dedicated regional driver who would not recommend any acute cardiac intervention at this time. We will give Lovenox to the patient for this reason as well as for the potential for the development of a DVT with him being immobilized overnight. No Plavix is being given. The patient is receiving an aspirin. Vital signs have remained stable. The patient would benefit from low flow oxygen if he will comply with wearing it. It is been difficult to get him to wear it in the past. The patient does also have urinary retention which appears to be in acute on chronic problem. He has had a Valdez catheter placed giving an immediate return of approximately 1100 cc. Urinalysis is clear. The patient is not having any chest pain and his EKG is consistent with previous EKGs. The patient will be admitted for further monitoring and hydration as necessary for rhabdomyolysis. We will also continue IV antibiotics for a possible infection of unknown origin. It is entirely possible that his drowsiness starting a few days ago may be due to his sleep medication. This can also lead to the falls and his continued deterioration from that point. - Results/Orders Results/Orders: Laboratory Tests 12/13/16 12/13/16 12/13/16 11:10 11:10 11:10 WBC 14.0 H RBC 3.07 L Hgb 10.0 L Hct 29.7 L MCV 96.7 H MCH 32.5 H MCHC 33.5 RDW 14.5 Plt Count 143 MPV 7.9 Absolute Neuts (auto) 12.50 H Absolute Lymphs (auto) 0.30 L Absolute Monos (auto) 1.10 H Absolute Eos (auto) 0.00 Absolute Basos (auto) 0.10 Neutrophils % 89.2 H Lymphocytes % 2.4 L Monocytes % 7.8 Eosinophils % 0.0 L Basophils % 0.6 PT INR PTT (SP) Sodium 134 L Potassium 3.4 L Chloride 104 Carbon Dioxide 24 Anion Gap 9.4 L BUN 29 H Creatinine 1.36 H BUN/Creatinine Ratio 21.3 H POC Glucose 260 H Random Glucose 261 H Serum Osmolality 283.1 Lactic Acid Calcium 10.1 Magnesium 1.3 L Total Bilirubin 1.8 H AST 36 ALT 13 Alkaline Phosphatase 46 Creatine Kinase 969 H* CK-MB (CK-2) 29.4 H* CK-MB (CK-2) % 3.03 Troponin I 1.23 H* B-Natriuretic Peptide 656.0 H* Serum Total Protein 8.8 H Albumin 2.8 L Globulin 6.0 H Albumin/Globulin Ratio 0.5 L Amylase 37 Lipase 24 Total PSA TSH 0.91 Urine Color Urine Appearance Urine pH Ur Specific Rentz Urine Protein Urine Glucose (UA) Urine Ketones Urine Blood Urine Nitrite Urine Bilirubin Urine Urobilinogen Ur Leukocyte Esterase Urine RBC Urine WBC Ur Epithelial Cells Urine Bacteria 12/13/16 12/13/16 12/13/16 11:10 11:10 12:32 WBC RBC Hgb Hct MCV MCH MCHC RDW Plt Count MPV Absolute Neuts (auto) Absolute Lymphs (auto) Absolute Monos (auto) Absolute Eos (auto) Absolute Basos (auto) Neutrophils % Lymphocytes % Monocytes % Eosinophils % Basophils % PT 15.7 H INR 1.390 PTT (SP) 25.6 Sodium Potassium Chloride Carbon Dioxide Anion Gap BUN Creatinine BUN/Creatinine Ratio POC Glucose Random Glucose Serum Osmolality Lactic Acid Calcium Magnesium Total Bilirubin AST ALT Alkaline Phosphatase Creatine Kinase CK-MB (CK-2) CK-MB (CK-2) % Troponin I B-Natriuretic Peptide Serum Total Protein Albumin Globulin Albumin/Globulin Ratio Amylase Lipase Total PSA 0.01 TSH Urine Color Yellow Urine Appearance Clear Urine pH 5.5 Ur Specific Rentz 1.020 Urine Protein 100 H Urine Glucose (UA) Negative Urine Ketones 15 H Urine Blood Large H Urine Nitrite Negative Urine Bilirubin Negative Urine Urobilinogen 0.2 Ur Leukocyte Esterase Negative Urine RBC 10-20 H Urine WBC 0 Ur Epithelial Cells 0 Urine Bacteria 0 12/13/16 12/13/16 13:35 13:53 WBC RBC Hgb Hct MCV MCH MCHC RDW Plt Count MPV Absolute Neuts (auto) Absolute Lymphs (auto) Absolute Monos (auto) Absolute Eos (auto) Absolute Basos (auto) Neutrophils % Lymphocytes % Monocytes % Eosinophils % Basophils % PT INR PTT (SP) Sodium Potassium Chloride Carbon Dioxide Anion Gap BUN Creatinine BUN/Creatinine Ratio POC Glucose Random Glucose Serum Osmolality Lactic Acid 1.0 Calcium Magnesium Total Bilirubin AST ALT Alkaline Phosphatase Creatine Kinase 1587 H* D CK-MB (CK-2) 56.9 H* D CK-MB (CK-2) % 3.59 H Troponin I 3.95 H* B-Natriuretic Peptide Serum Total Protein Albumin Globulin Albumin/Globulin Ratio Amylase Lipase Total PSA TSH Urine Color Urine Appearance Urine pH Ur Specific Rentz Urine Protein Urine Glucose (UA) Urine Ketones Urine Blood Urine Nitrite Urine Bilirubin Urine Urobilinogen Ur Leukocyte Esterase Urine RBC Urine WBC Ur Epithelial Cells Urine Bacteria EKG shows normal sinus rhythm with a left bundle branch block. There is corresponding left axis deviation. This EKG is consistent with the EKG from October 2016. Chest x-ray shows significant improvement from previous x-ray. No evidence of overt acute/fluid overload or obvious new pneumonia. head CT shows no acute pathology. Departure - Departure Clinical Impression: Delirium, Urinary retention Traumatic rhabdomyolysis Qualifiers: Encounter type: initial encounter Qualified Code(s): T79.6XXA - Traumatic ischemia of muscle, initial encounter Disposition: Admit Patient Referrals: Britton Miller MD [Primary Care Provider] - 1-2 Weeks Home Medications: Ambulatory Orders Cyanocobalamin [Vitamin B-12 Cr] 1,000 mcg PO DAILY 03/04/16 Lovastatin 40 mg PO DAILY 03/04/16 Metoprolol Tartrate 25 mg PO BID 03/04/16 Ramipril [Altace] 5 mg PO DAILY 03/04/16 Tamsulosin [Flomax] 0.4 mg PO DAILY 03/04/16 glyBURIDE [Diabeta] 10 mg PO DAILY 03/04/16 Omeprazole Magnesium [Prilosec Otc] 20 mg PO BID #60 tab 03/05/16 Calcium Carb 500Mg-Vitamin D [Oscal 500mg w/D] 1 ea PO DAILY 07/23/16 Carbonyl Iron [Perfect Iron] 50 mg PO DAILY 07/23/16 Umeclidinium-Vilanterol [Anoro Ellipta 62.5-25 Mcg/INH] 1 aer INH DAILY Decision To Admit - Decistion To Admit Decision to Admit Reason: Medical Nature Decision to Admit Date: 12/13/16 Decision to Admit Time: 15:45
[2016-12-13] MEDS ORDERED: HEPARIN SODIUM (PORCINE) 5,000 U/ML VIAL IV ONE (15:33)
[2016-12-13] MEDS ORDERED: ASPIRIN TABLET 325 MG TAB PO ONE (15:34)
--- NOTE | 2016-12-13 16:20 | US ---
EXAM DESCRIPTION: Venous,Lower Extremity LT CLINICAL HISTORY: high risk for dvt, nstemi COMPARISON: None Available. TECHNIQUE: Left lower extremity venous grayscale, spectral, and color Doppler sonographic images. FINDINGS: There is no DVT identified. There is normal color flow observed with good flow augmentation. All deep veins compress normally. Soft tissue edema is present. IMPRESSION: Negative for DVT Electronically signed by: Brain Del Castillo MD 12/13/2016 4:20 PM CDT
--- NOTE | 2016-12-13 17:07 | HP ---
SUPERVISING PHYSICIAN: Britton Miller MD CHIEF COMPLAINT: Neuro deficit symptoms and mental status changes. HISTORY OF PRESENT ILLNESS: This is an 81 year-old male patient who has a history of mild dementia. He was brought in by his family earlier today due to his altered mental status. He has had several falls in the last few days and has shown some increasing confusion, especially over the last 24 to 48 hours. He has been afebrile and has not complained about pain. He presented to the Emergency Room somewhat confused. He has some lower abdominal discomfort and has an obvious distended bladder. A Valdez catheter was placed and about a liter of clear yellow urine was returned. The patient apparently spent the night in a laundry basket. He had been by family members on the previous evening but was found this morning in the laundry basket. He had apparently gotten up and somehow fallen into the laundry basket and was unable to get out. The patient has a history of benign prostatic hypertrophy with prostate cancer and he has had difficulty urinating off and on for quite some time. In the Emergency Room, his WBC was 14 with a left shift. His hemoglobin was 10 , hematocrit 29.7. Platelet count 143,000. PT 15.7, INR1.39, PTT 25.6. Sodium 134, potassium 3.4, chloride 104, carbon dioxide 24, BUN 29, creatinine 1.36, glucose 260, lactic acid 1, calcium 10.1, magnesium 1.3. Total bilirubin 1.8, AST 36, ALT 13, alkaline phosphatase 46, BNP 656. Serum total protein 8.8, albumin 2.8, globulin 6.0. Urine protein 100, urine ketones 15, large urine blood and 10 to 20 urine RBCs. His initial cardiac enzymes showed a creatinine kinase of 969, CK 29.4, troponin 1.23. His followup cardiac enzymes showed creatinine kinase of 1,587, CKMB of 56.9 and troponin 3.95. About 2 months ago , patient was sent to [facility] for sepsis and associated congestive heart failure. It is likely that he does have an ischemic cardiomyopathy. Dr. Armendariz, his international accounting manager, was called. He did not want to do a workup on the patient. There was also some question as to whether the origin of the sepsis several months ago was pneumonia. He also had a head CT done in the Emergency Room and per radiology interpretation it showed a generalized age appropriate volume loss, vascular calcifications and chronic ischemic changes but no acute intracranial abnormality. He also had a chest x-ray which showed no new infiltrates or consolidations seen with no obvious pleural effusion or pneumothorax. He also had lower extremity ultrasounds done that showed no sonographic evidence of acute DVT within the right lower extremity and left lower extremity was negative for DVT. He was given some Rocephin as well as a 500 cc bolus of fluids. His blood cultures were drawn and he was given a dose of ceftriaxone. I was called for admission. Past medical history and review of systems was somewhat difficult to obtain due to patient's mental status. Information was obtained via the EMR. A few questions were also answered by the patient. PAST MEDICAL HISTORY: 1. GI bleed approximately 2 years ago. 2. Prostatic cancer with radiation seeds placed. 3. Diabetes mellitus type 2 on oral medication. 4. History of hypertension. 5. History of coronary artery disease, patient of Dr. Armendariz, international accounting manager in [place]. PAST SURGICAL HISTORY: 1. Appendectomy. 2. Radiation seed implants due to prostate cancer. CURRENT MEDICATIONS: Per the EMR and awaiting verification. ALLERGIES: No known drug allergies. SOCIAL HISTORY: The patient quit smoking in 1979. He denies any ETOH or illicit drug use. REVIEW OF SYSTEMS: Unable to obtain due to the patient's mental status. PHYSICAL EXAMINATION: VITAL SIGNS: Temperature 99.3, pulse rate 94, blood pressure 101/56, respiratory rate 18, 02 saturation 92%. GENERAL: This is an 81 year-old male patient who is sitting in his hospital bed. He is in no acute distress. HEENT: Normocephalic and atraumatic. Oropharynx is clear. Oral mucous membranes are somewhat dry. NECK: Supple without mass. CHEST: Lungs are clear to auscultation bilaterally. There is equal rise and fall of the chest with inspiration and expiration. CARDIOVASCULAR: Regular rate and rhythm. ABDOMEN: Soft, non-tender, nondisplaced. Bowel sounds are positive. He does have a Valdez catheter in place. EXTREMITIES: No cyanosis, clubbing, or edema. SKIN: There is a large area of cellulitis along the left buttocks. The center scabbed area is approximately 1 cm with an area of induration about 7 to 8 cm. There is no fluctuance or drainage. NEUROLOGIC: He is awake and alert to person and place only, although he does have some difficulty answering some simple questions. All labs and films are as per the history of present illness. ASSESSMENT: 1. Cellulitis of the left hip with concerns for early sepsis. 2. Rhabdomyolysis with a CPK of 1,587. Patient was found on the floor in a laundry basket for an unknown amount of time. 3. Non STEMI with elevated troponin of 3.95 with no chest pain or EKG changes, plus history of coronary artery disease. 4. Acute confusional state may be related to the cellulitis but cannot rule out Restoril over-medication. 5. Leukocytosis most likely due to #1 and there is a left shift. 6. Acute renal failure. 7. Dehydration. 8. Diabetes mellitus type 2. 9. Hypertension. 10. Urinary retention with a history of prostate cancer. 11. Mild dementia. 12. History of GI bleed. 13. Electrolyte imbalance, specifically hypokalemia and hypomagnesemia. PLAN: We will admit the patient to the hospital. I will give him some fluids very judiciously. I will repeat his cardiac enzymes in the morning as well as routine labs. We will monitor patient's cardiac status with cardiac monitoring. His mental status has improved, although he does have an underlying history of dementia. We will also monitor that with neuro checks. Hopefully, judicious use of IV fluids will correct his renal failure and dehydration. We have placed him on sliding scale insulin. We will resume his home medications. We will evaluate his need for his Valdez catheter and anticipate removal in the next 48 hours. I have started renal dose Lovenox for DVT prophylaxis as well as a PPI for ulcer prophylaxis. He will be started on vancomycin and Zosyn. I will consult Dr. Tim in the morning regarding his wound. I have given him some potassium as well as magnesium. We will monitor the patient closely and followup as needed. Dr. Miller is the collaborating physician and available for consultation. #[id number] [facility]
[2016-12-13] MEDS ORDERED: ONDANSETRON INJ 4 MG/2 ML VIAL IV PRN (19:30)
[2016-12-13] MEDS ORDERED: HYDROcodone 5MG/APAP 325MG 1 EA TAB PO PRN (19:30)
[2016-12-13] MEDS ORDERED: ACETAMINOPHEN 325 MG TAB PO PRN (19:30)
[2016-12-13] MEDS ORDERED: SODIUM CHLORIDE 0.9% 1000ML 1,000 ML IVS PRN (19:37)
[2016-12-13] MEDS ORDERED: POTASSIUM CHLORIDE 20 MEQ TAB PO ONE (19:38)
[2016-12-13] MEDS ORDERED: GLUCAGON INJ 1 MG VIAL SUBCU PRN (19:38)
[2016-12-13] MEDS ORDERED: ENOXAPARIN SODIUM 30 MG/0.3 ML SYG SUBCU SCH (20:00)
[2016-12-13] MEDS ORDERED: SODIUM CHLORIDE 0.9% 100ML 100 ML IVPB ONE (20:14)
[2016-12-13] MEDS ORDERED: PIPERACILLIN/TAZOBACTAM 3.375 GM VIAL IVPB ONE (20:14)
[2016-12-13] MEDS: IV SET AND CAP CHANGE INJ INJ SCH (20:31)
[2016-12-13] MEDS: PIPERACILLIN/TAZOBACTAM 3.375 GM in SODIUM CHLORIDE 0.9% 100ML 100 ML IVPB SCH (20:32)
--- NOTE | 2016-12-13 20:41 | US ---
EXAM DESCRIPTION: Venous,Lower Extremity RT CLINICAL HISTORY: high risk for dvt, nstemi COMPARISON: None Available TECHNIQUE: Grayscale, color Doppler, and Doppler interrogation images of the common femoral vein, superficial femoral vein, popliteal, peroneal and posterior tibial veins of the right lower extremity were submitted FINDINGS: All of the above-mentioned venous structures demonstrate normal spontaneous flow with respiratory phasicity and were fully compressible. IMPRESSION: No sonographic evidence of acute DVT within the right lower extremity. Electronically signed by: Jak Reinoso MD 12/13/2016 8:40 PM CDT
[2016-12-13] MEDS ORDERED: VANCOMYCIN HCL INJ 1,000 MG in SODIUM CHLORIDE 0.9% 250ML 250 ML IVPB ONE (21:00)
[2016-12-13] MEDS: INSULIN LISPRO 100 UNITS/ML PEN SUBCU SCH (21:10)
[2016-12-13] MEDS ORDERED: VANCOMYCIN HCL INJ 1,000 MG VIAL IVPB ONE (21:15)
[2016-12-13] MEDS ORDERED: SODIUM CHLORIDE 0.9% 250ML 250 ML ONE (21:15)
[2016-12-13] MEDS ORDERED: MAGNESIUM SULFATE PREMIX 2GM 2 GM in PREMIX BAG 1 BAG IVPB ONE (22:54)
[2016-12-13] MEDS ORDERED: PANTOPRAZOLE SODIUM IV 40 MG VIAL IV SCH (23:00)
[2016-12-13] MEDS ORDERED: MAGNESIUM SULFATE PREMIX 2GM 50 ML IVPB ONE (23:27)
[2016-12-14] MEDS ORDERED: POTASSIUM CHLORIDE INJ 20 MEQ 20 MEQ in SODIUM CHLORIDE 0.45% 1000ML 1,000 ML IV PRN ×2
[2016-12-14] MEDS ORDERED: KCL 20 MEQ/NS 1,000 ML IVS PRN (00:21)
[2016-12-14] MEDS ORDERED: KCL 20MEQ/0.45% NS 1,000 ML IVS PRN ×2 (00:22→00:29)
[2016-12-14] MEDS ORDERED: SODIUM CHLORIDE 0.9% 100ML 100 ML IVPB ONE ×4 (02:12→20:11)
[2016-12-14] MEDS ORDERED: PIPERACILLIN/TAZOBACTAM 3.375 GM VIAL IVPB ONE ×4 (02:12→20:11)
[2016-12-14] MEDS: PIPERACILLIN/TAZOBACTAM 3.375 GM in SODIUM CHLORIDE 0.9% 100ML 100 ML IVPB SCH ×4 (02:14→20:19)
[2016-12-14] MEDS ORDERED: MAGNESIUM SULFATE PREMIX 2GM 2 GM in PREMIX BAG 1 BAG IVPB ONE (07:49)
[2016-12-14] MEDS ORDERED: VANCOMYCIN PER PHARMACY INJ SCH (08:00)
[2016-12-14] MEDS: INSULIN LISPRO 100 UNITS/ML PEN SUBCU SCH ×4 (08:42→21:20)
[2016-12-14] MEDS ORDERED: MAGNESIUM SULFATE PREMIX 2GM 50 ML IVPB ONE (08:44)
[2016-12-14] MEDS ORDERED: LEVALBUTEROL NEBS 1.25 MG/3 ML VIAL NEB ONE (09:06)
[2016-12-14] MEDS: SODIUM CHLORIDE 0.9% (FLUSH) 10 ML SYG IV SCH ×2 (10:02→21:33)
[2016-12-14] MEDS ORDERED: LEVALBUTEROL NEBS 1.25 MG/3 ML VIAL NEB PRN ×2 (11:26→11:28)
--- NOTE | 2016-12-14 11:29 | PCM.CORE ---
Physician DVT/VTE - Prophylaxis Currently: Patient already on anticoagulation therapy - Nurse DVT Assessment & Total Each Risk Factor Represents 3 Points: Age over 75 years Each Risk Factor Represents 2 Points: Malignancy (present/past) Each Risk Factor is 1 Point: Obesity (BMI >25) DVT Assessment Score: 6 - 5 or more Very High Risk Treatments: Early Ambulation *, Sequential Compression Device
[2016-12-14] MEDS ORDERED: MAGNESIUM HYDROXIDE 30 ML UD PO ONE (12:53)
[2016-12-14] MEDS: LEVALBUTEROL NEBS 1.25 MG/3 ML VIAL NEB SCH ×3 (12:54→20:04)
[2016-12-14] MEDS: RAMIPRIL 5 MG CAP PO SCH (13:04)
[2016-12-14] MEDS: TAMSULOSIN 0.4 MG CAP PO SCH (13:04)
[2016-12-14] MEDS ORDERED: levoFLOXacin 500MG IV 100 ML IVPB ONE (13:07)
[2016-12-14] MEDS: levoFLOXacin 500MG IV 500 MG in PREMIX BAG 1 BAG IVPB SCH (13:09)
--- NOTE | 2016-12-14 13:37 | CONS ---
DATE OF CONSULTATION: 12/14/16 REFERRING PHYSICIAN: Hospitalist Service HISTORY OF PRESENT ILLNESS: The patient is an 81 year-old male who was admitted through the Emergency Room with changes in mental status and elevated white blood cell count. He underwent a CT scan of his head, chest x-ray and cardiac workup, all of which were nondiagnostic. He was noted to have a white blood cell count of 14,000 with a left shift. His mental status changes were essentially that he was found sleeping or down in a laundry basket at home for an uncertain amount of time. He was found to have elevation of his troponin, CK and CK-MB. He had a history of cardiomyopathy and Dr. Armendariz was involved with the workup in the Emergency Room and felt no further cardiac treatments were appropriate. I have been asked to see the patient because Key Mcbride has found a tender mass on the left buttock consistent with an early abscess or cellulitis. The patient denies blood per rectum but states he has not had a bowel movement for 3 days. PAST MEDICAL HISTORY: 1. Gastrointestinal bleed. 2. Cancer of the prostate with radiation seeds. 3. Diabetes. 4. Hypertension. 5. History of congestive heart failure. PAST SURGICAL HISTORY: 1. Status post appendectomy. 2. Prostate cancer treatment. CURRENT MEDICATIONS: Noted in the nursing records. ALLERGIES: NO KNOWN DRUG ALLERGIES. SOCIAL HISTORY: The patient does not use alcohol or tobacco. He quit smoking in 1979. REVIEW OF SYSTEMS: Unremarkable except as in the History of Present Illness. No bowel movement. No weight change. No melenic stools. No blood per rectum. No hematemesis. He denies chest pain currently or shortness of breath. PHYSICAL EXAMINATION: VITAL SIGNS: Currently afebrile, normotensive. GENERAL: The patient is awake, alert and cooperative, and in mild distress. HEENT: Reveals the sclera to be nonicteric. Mucous membranes are moist. NECK: Without adenopathy. BACK: Without CVA tenderness. BUTTOCK: His left buttock reveals an area of induration without fluctuance. There is a central ecchymotic area with peeling of the overlying skin. There is mild erythema but this is said to be decreased from previously. EXTREMITIES: Without significant edema. There is no mottling. LABORATORY: White count of 13,000 down from 14,000, hemoglobin is down from 10 to 9.4, platelet count 123, neutrophil count is down from 89 to 80 this morning. Urine shows large blood, 10 to 20 red blood cells, no bacteria. No leukocyte esterase. Specific gravity 1.020. Chemistries reveal potassium 3.7, creatinine 1.19. Liver functions are mildly elevated, AST and bilirubin, and the CK, CK-MB are both improved. Troponin is up to 6.98. There is no growth to date on aerobic and anaerobic blood cultures times 2. IMPRESSION: 1. Abscess of the left buttock, whether it is perirectal or in fact there is a discrete abscess cavity at this point is unknown. PLAN: Will add Levaquin to the Zosyn and vancomycin. Begin warm soaks and will also give him a dose of Milk of Magnesia to attempt to get his bowels moving. Flat and upright abdominal x-ray will be ordered tomorrow. Will follow the patient along with the hospitalist service. #[id number] [facility]
[2016-12-14] MEDS ORDERED: METOPROLOL TARTRATE 25 MG TAB ONE (15:09)
--- NOTE | 2016-12-14 15:26 | PN ---
DATE: 12/14/16 SUPERVISING PHYSICIAN: Eric Sarmiento M.D. SUBJECTIVE: The patient is sitting up in his room. He is eating his meal. He has no complaints of chest pain or shortness of breath, nausea vomiting or diarrhea. He is much more alert today then he was yesterday. He answers questions appropriately. Dr. Tim is with me at the bedside and we have examined his buttocks. OBJECTIVE: Temperature 99.4, heart rate 101, blood pressure 101/61, respiratory rate 18, O2 sat 90%. RESPIRATORY: Clear to auscultation bilaterally. CARDIAC: Regular rate and rhythm. ABDOMEN: Soft, nondistended, non-tender. Bowel sounds are positive. SKIN: He has a 7 to 8 cm area of cellulitis on his left buttocks. There is a center scabbed area that is about 1 cm in diameter. There is a very small amount of purulent drainage from one edge of that scab. The area of induration is approximately 1 cm less than it was yesterday evening. NEUROLOGIC: He is awake, alert and oriented times three. LABORATORY: White count is slightly improved to 13.1, hemoglobin has dropped some to 9.4, hematocrit 28, platelets 123. Sodium 136 potassium 3.7, chloride 109, carbon dioxide 21, BUN 29, creatinine has improved to 1.19, glucose 87, magnesium 1.7. Total bilirubin 1.3, AST has increased slightly to 63, creatinine kinase has decreased from 1,587 to 1,167, CK-MB 25.7, troponin has increased to 6.98. Preliminary blood cultures show no growth after 24 hours. All other labs and films have been reviewed via the EMR. ASSESSMENT: 1. Cellulitis of the left hip with concerns for early sepsis. 2. Rhabdomyolysis with initial CPK of 1,587, today it has dropped to 1,167. 3. Non STEMI with elevated troponin has increased to 6.98 this AM with no chest pain or EKG changes, plus history of coronary artery disease. 4. Acute confusional state that may be related to cellulitis but cannot rule out Restoril over-medication that has now mostly resolved and the patient is back to baseline. 5. Leukocytosis most likely due to number 1. 6. Acute renal failure. 7. Dehydration. 8. Diabetes mellitus type 2. 9. Hypertension. 10. Urinary retention with a history of prostate cancer. 11. Mild dementia. 12. History of gastrointestinal bleed. 13. Electrolyte imbalance. His hypokalemia has resolved but he continues with hypomagnesemia. PLAN: The patient has improved dramatically overnight with fluids as well as antibiotics. I have consulted Dr. Tim today and he is taking care of the wound on his left buttocks. He has recommended that we add Levaquin to his antibiotic regimen, so that has been done. We are also putting warm compresses on it twice a day. I will repeat the lab and cardiac enzymes in the morning. Physical Therapy has been consulted. I have also given him another dose of magnesium and we will recheck his magnesium in the morning. I will discontinue his IV fluids as he is taking his p.o. medications well. We will continue to monitor the patient closely and followup as needed. Dr. Sarmiento is the collaborating physician available for consultation. #[id number] [facility]
[2016-12-14] MEDS: METOPROLOL TARTRATE 25 MG TAB PO SCH (17:19)
[2016-12-14] MEDS ORDERED: SODIUM CHLORIDE 0.9% 250ML 250 ML ONE (20:42)
[2016-12-14] MEDS ORDERED: VANCOMYCIN HCL INJ 1,000 MG VIAL IVPB ONE (20:43)
[2016-12-14] MEDS ORDERED: VANCOMYCIN HCL INJ 1,000 MG in SODIUM CHLORIDE 0.9% 250ML 250 ML IVPB SCH (21:00)
[2016-12-14] MEDS: ENOXAPARIN SODIUM 30 MG/0.3 ML SYG SUBCU SCH (21:25)
[2016-12-14] MEDS: SIMVASTATIN 20 MG TAB PO SCH (21:33)
[2016-12-14] MEDS: PANTOPRAZOLE SODIUM IV 40 MG VIAL IV SCH (21:33)
[2016-12-14] MEDS ORDERED: HYDROcodone 5MG/APAP 325MG 1 EA TAB PO PRN (22:23)
[2016-12-15] MEDS ORDERED: PIPERACILLIN/TAZOBACTAM 3.375 GM VIAL IVPB ONE ×4 (00:46→20:15)
[2016-12-15] MEDS ORDERED: SODIUM CHLORIDE 0.9% 100ML 100 ML IVPB ONE ×4 (00:46→20:16)
[2016-12-15] MEDS: PIPERACILLIN/TAZOBACTAM 3.375 GM in SODIUM CHLORIDE 0.9% 100ML 100 ML IVPB SCH ×4 (01:51→21:16)
[2016-12-15] MEDS: SODIUM CHLORIDE 0.9% (FLUSH) 10 ML SYG IV SCH ×2 (08:06→21:20)
[2016-12-15] MEDS: glyBURIDE 5 MG TAB PO SCH (08:08)
[2016-12-15] MEDS: METOPROLOL TARTRATE 25 MG TAB PO SCH ×2 (08:08→17:02)
[2016-12-15] MEDS: INSULIN LISPRO 100 UNITS/ML PEN SUBCU SCH ×3 (08:08→16:50)
--- NOTE | 2016-12-15 08:37 | RAD ---
PROCEDURE: Abdomen Flat Upright Clinical History: constipation Indication: Same as above Comparison: October 02, 2016 Technique: Two views of the abdomen and pelvis were done. Findings: There is no gross evidence of free air in the abdomen or the pelvis . The small and large bowel gas pattern does not show any evidence of obstruction, ileus or bowel wall thickening. There is no significant constipation. Note is again made of a radiopaque density in the outline of the right kidney measuring 12 mm and may represent a right renal calculus Radiotherapy needles are seen in the prostatic bed. Impression: There is no significant constipation. Note is again made of a radiopaque density in the outline of the right kidney measuring 12 mm and may represent a right renal calculus Location of Interpretation: [id number] Electronically signed by: Saleem Rod MD 12/15/2016 8:35 AM CDT
[2016-12-15] MEDS: NON-FORMULARY MEDICATION 1 EA MIS (Umeclidinium-Vilanterol [Anoro Ellipta 62.5-25 Mcg/Inh] INH SCH (08:46)
[2016-12-15] MEDS: LEVALBUTEROL NEBS 1.25 MG/3 ML VIAL NEB SCH ×4 (08:46→19:35)
[2016-12-15] MEDS: RAMIPRIL 5 MG CAP PO SCH (08:58)
[2016-12-15] MEDS: TAMSULOSIN 0.4 MG CAP PO SCH (08:58)
[2016-12-15] MEDS ORDERED: NON-FORMULARY MEDICATION 1 EA MIS (Umeclidinium-Vilanterol [Anoro Ellipta 62.5-25 Mcg/Inh] INH SCH (09:00)
[2016-12-15] MEDS ORDERED: levoFLOXacin 500MG IV 100 ML IVPB ONE (12:57)
[2016-12-15] MEDS: levoFLOXacin 500MG IV 500 MG in PREMIX BAG 1 BAG IVPB SCH (13:00)
[2016-12-15] MEDS: NITROGLYCERIN 0.1 MG/HR PATCH TD SCH (15:34)
[2016-12-15] MEDS ORDERED: SODIUM CHLORIDE 0.9% 250ML 250 ML ONE (20:14)
[2016-12-15] MEDS ORDERED: VANCOMYCIN HCL INJ 1,000 MG VIAL IVPB ONE (20:16)
[2016-12-15] MEDS: ENOXAPARIN SODIUM 30 MG/0.3 ML SYG SUBCU SCH (21:15)
[2016-12-15] MEDS: SIMVASTATIN 20 MG TAB PO SCH (21:15)
[2016-12-15] MEDS: PANTOPRAZOLE SODIUM IV 40 MG VIAL IV SCH (21:20)
[2016-12-15] MEDS ORDERED: BIFIDOBACTERIUM INFANTIS 4 MG CAP PO SCH (21:30)
[2016-12-15] MEDS ORDERED: BIFIDOBACTERIUM INFANTIS 4 MG CAP ONE (21:48)
[2016-12-15] MEDS: VANCOMYCIN HCL INJ 750 MG in SODIUM CHLORIDE 0.9% 250ML 250 ML IVPB SCH (22:42)
[2016-12-16] MEDS: INSULIN LISPRO 100 UNITS/ML PEN SUBCU SCH ×5 (01:39→21:30)
[2016-12-16] MEDS ORDERED: REMOVE OLD PATCH TOP ONE (02:30)
[2016-12-16] MEDS ORDERED: PIPERACILLIN/TAZOBACTAM 3.375 GM VIAL IVPB ONE (06:29)
[2016-12-16] MEDS ORDERED: SODIUM CHLORIDE 0.9% 100ML 100 ML IVPB ONE (06:29)
[2016-12-16] MEDS: DEXTROSE 50% 25 GM/50 ML SYG IV PRN ×2 (06:33→12:04)
[2016-12-16] MEDS: PIPERACILLIN/TAZOBACTAM 3.375 GM in SODIUM CHLORIDE 0.9% 100ML 100 ML IVPB SCH ×2 (06:40→19:33)
[2016-12-16] MEDS: SODIUM CHLORIDE 0.9% (FLUSH) 10 ML SYG IV PRN ×2 (06:40→21:36)
[2016-12-16] MEDS ORDERED: VANCOMYCIN HCL INJ 1,000 MG VIAL IVPB ONE ×2 (08:04→20:04)
[2016-12-16] MEDS ORDERED: SODIUM CHLORIDE 0.9% 250ML 250 ML ONE ×2 (08:04→20:03)
--- NOTE | 2016-12-16 08:52 | PN ---
SUPERVISING PHYSICIAN: Raymundo Sarmiento MD DATE: 12/15/16 SUBJECTIVE: The patient is sitting up in his room eating his meal. He has family and visitors in his room. He has no complaints of chest pain, shortness of breath, nausea, vomiting or diarrhea. He does complain of pain to the left buttocks where the abscess is. Otherwise, he has no complaints. OBJECTIVE: VITAL SIGNS: Afebrile. Heart rate 82. Blood pressure 113/68. Respiratory rate 20. O2 sat 94%. LUNGS: Essentially clear to auscultation bilaterally. CARDIAC: Regular rate and rhythm. ABDOMEN: Soft, nontender, nondistended. Bowel sounds are positive. NEUROLOGIC: Awake, alert and oriented times three. LABORATORY: WBC down to 12.2, but hemoglobin and hematocrit are also down to 8.8 and 26.8. Platelet count has normalized to 130. Sodium 137, potassium 3.6 , chloride 109, carbon dioxide 23, BUN 30, creatinine 1.22. AST 43, alkaline phosphatase 39, CPK 388 down from 1167 yesterday. CK-MB 6.1 down from 25.7 yesterday. Troponin 6.44 down from 6.98 yesterday. Preliminary blood cultures show no growth after 48 hours. Abdominal x-ray shows no significant constipation and a radiopaque density in the outline of the right kidney measuring 12 mm and may represent a right renal calculus. All other labs and films have been reviewed via the EMR. ASSESSMENT: 1. Cellulitis of the left hip with concerns for early sepsis. 2. Rhabdomyolysis with initial CPK of 1587, today it has dropped to 388. 3. Non-ST elevation myocardial infarction with elevated troponin that is down to 6.44 today. He has had no chest pain or EKG changes during this hospital admission. He has a history of coronary artery disease as well as ischemic cardiomyopathy. He is presently on Lovenox, but aspirin has been held due to pending surgical procedures. 4. Acute confusional state that may have been related to cellulitis, but cannot rule out Restoril over-medication, now mostly resolved and the patient is back to baseline. 5. Anemia of unknown origin. His hemoglobin has dropped from 10 on admission to 8.8 today as well as hemoglobin on admission was 29.7 and is now 26.8. 6. Acute renal failure, mostly resolved. 7. Dehydration. 8. Diabetes mellitus, type 2. 9. Hypertension. 10. Urinary retention with a history of prostate cancer. 11. Mild dementia. 12. History of gastrointestinal bleed. 13. Electrolyte imbalance, mostly resolved now. Potassium and magnesium are both within normal limits. PLAN: The patient continues to improve. Dr. Tim examined his wound today and he would like to take him to surgery to do an I&D on that abscess. I have held his aspirin due to concerns of impending surgery. He will receive his Lovenox tonight and anticipate surgery in the morning. I also added a nitro patch that will be taken off tonight. The patient is currently on a beta kevin as well as an TAN inhibitor. Dr. Tim will be in touch with Dr. Armendariz with concerns about surgical intervention. At the time of admission, Dr. Armendariz recommended that due to his age, his comorbidities, lack of cardiac symptoms as well as ejection fraction of 35%, that any kind of invasive procedures would not be warranted and the patient should be treated medically. I have made the patient NPO after midnight tonight. I have also added stool occult bloods due to his anemia. I have also ordered routine labs tomorrow including cardiac enzymes. We will continue to monitor the patient closely and followup as needed. #[id number] [facility]
[2016-12-16] MEDS: LEVALBUTEROL NEBS 1.25 MG/3 ML VIAL NEB SCH ×4 (09:15→20:22)
[2016-12-16] MEDS: NON-FORMULARY MEDICATION 1 EA MIS (Umeclidinium-Vilanterol [Anoro Ellipta 62.5-25 Mcg/Inh] INH SCH (09:15)
[2016-12-16] MEDS ORDERED: fentaNYL CITRATE INJ 50 MCG/ML AMP ONE (10:12)
[2016-12-16] MEDS ORDERED: SODIUM CHLORIDE 0.9% 1000ML 1,000 ML ONE (10:27)
[2016-12-16] MEDS ORDERED: IODOFORM 1INCH 1 EA BTTL TOP ONE (11:06)
[2016-12-16] MEDS: RAMIPRIL 5 MG CAP PO SCH (11:13)
[2016-12-16] MEDS: glyBURIDE 5 MG TAB PO SCH (11:13)
[2016-12-16] MEDS: TAMSULOSIN 0.4 MG CAP PO SCH (11:13)
[2016-12-16] MEDS: METOPROLOL TARTRATE 25 MG TAB PO SCH ×2 (11:13→17:34)
[2016-12-16] MEDS ORDERED: PROPOFOL 200 MG/20 ML VIAL IV ONE (12:00)
[2016-12-16] MEDS ORDERED: DEXTROSE 50% 25 GM/50 ML SYG IV ONE (12:00)
--- NOTE | 2016-12-16 12:01 | OP ---
DATE OF PROCEDURE: 12/16/16 PREOPERATIVE DIAGNOSIS: 1. Perineal abscess. POSTOPERATIVE DIAGNOSIS: 1. Perirectal abscess. PROCEDURE: 1. Examination under anesthesia. 2. Incision and drainage of perirectal abscess. SURGEON: Konstantin Tim MD. [employer]ING [employer] SUPERVISOR: None. ANESTHESIA: General laryngeal mask anesthesia. INDICATION: The patient is an 81-year-old male who was found down at home by his family. He was brought to the Emergency Room where workup revealed mild elevation of his cardiac enzymes with no EKG changes or chest pain. His doll eye setter, Dr. Armendariz, was consulted who felt that there was nothing that would be done with him as long as he remained asymptomatic. He was also found to have a leukocytosis and admitted from the Emergency Room, then we found a tender mass on his left buttock. The induration extended anterior to the anus. He denied changes in his bowel habits and he has been treated with IV antibiotics and he still has an elevated white count. The mass has gotten softer posteriorly and started to have a tiny amount of drainage. He was brought to the Surgical Suite today for incision and drainage of this mass after an examination under anesthesia. The risks, benefits and alternatives to surgery were discussed with the patient and his family including the fact that he is an increased risk due to the cardiac enzyme elevation. The conversation with Dr. Armendariz included that there were no significant things to do other than make sure his potassium, blood pressure, hemoglobin and oxygenation all remain good. FINDINGS: The abscess cavity extended from anterior to the anus to well posterior and did not to my examination extend deep below the sphincter or deep into the ischial rectal fossa. PROCEDURE: After the patient was placed under laryngeal mask anesthesia, he was placed in the dorsolithotomy position. Examination under anesthesia was performed at this time which did not find a mass or purulent drainage. At this time, he was prepped and draped in the usual manner. In the area where the small amount of purulent drainage was obtained, a stab wound was made with a 15 blade and a hemostat was introduced, obtaining a purulent drainage which was cultured. At this point, the incision continued to be extended anteriorly cutting over a hemostat until it was well anterior to the anus. When this was done, hemostasis was obtained as best possible with electrocautery, but there was significant oozing. It was irrigated copiously with saline and then patched with 1" iodoform Nu-gauze and sterile pressure dressing. The patient tolerated the procedure well. Estimated blood loss was 100 to 150 mL. All sponge, needle and instrument counts were correct. #[id number] [facility]
[2016-12-16] MEDS: SODIUM CHLORIDE 0.9% 1000ML 1,000 ML IVS PRN ×2 (12:20→18:08)
[2016-12-16] MEDS: VANCOMYCIN HCL INJ 750 MG in SODIUM CHLORIDE 0.9% 250ML 250 ML IVPB SCH ×3 (13:01→21:30)
[2016-12-16] MEDS ORDERED: levoFLOXacin 500MG IV 100 ML IVPB ONE (15:04)
[2016-12-16] MEDS: levoFLOXacin 500MG IV 500 MG in PREMIX BAG 1 BAG IVPB SCH (15:59)
[2016-12-16] MEDS: NITROGLYCERIN 0.1 MG/HR PATCH TD SCH (16:30)
[2016-12-16] MEDS ORDERED: HYDROcodone 10MG/APAP 325MG 1 EA TAB PO PRN (17:14)
--- NOTE | 2016-12-16 18:57 | PN ---
DATE: 12/16/16 SUBJECTIVE: The patient is sitting up in the bed and then generally feeling alert, communicative and less distressed compared to yesterday. His appetite is much improved and he ate a good meal towards the end of the day after a busy day in surgery earlier this morning. Dr. Tim took him to the Surgical Suite at which point a large perirectal abscess was opened and drained with large amounts of purulent material removed, specimen sent to the lab for culture and the abscess cavity irrigated thoroughly. Some Iodoform gauze was inserted to assist with the continued drainage of the abscess and close followup as well as continuation of the vancomycin and Levaquin will be continued. Final cultures are pending. OBJECTIVE: Afebrile, pulse 78, blood pressure 118/52, pulse oximetry 95% on room air. Weight is stable. The patient is now awake and alert now postoperatively. He has awakened completely with very poor memory of the occurrences in the Surgery Suite. His appetite has improved compared to yesterday. Still with a burning discomfort in the area of the abscess in the perirectal region. Special attention to wound and dressing changes in progress. LABORATORY: White count 11,100 with 74% neutrophils, hemoglobin 9.2. Chemistries showed potassium is down to 3.5 and supplement to be continued. Sugars were 186 fasting with a random glucose 41 at 6:00 in the morning. BUN 23 , troponin had come down from a high of 6.98 two afternoons ago down to 2.97 this morning. No significant ischemic changes noted on the EKG. Stool guaiac was negative yesterday. Vancomycin trough was obtained last evening and was 6.7 with adjustment in the dose accordingly. Blood cultures are negative. Wound culture at the time of surgery is to the lab and results pending. Abdominal x-ray performed yesterday revealed no significant constipation or abnormalities at this time except for what appears to be a possible right renal calculus. ASSESSMENT: 1. An acute perirectal abscess requiring incision and drainage by Dr. Tim earlier today with cultures pending and continuing on vancomycin treatment. 2. Rhabdomyolysis with initial CPK elevated showing improvement towards normal. 3. Non-ST segment elevation myocardial infarction with elevated troponin that is slowly returning towards normal limits currently on Lovenox and aspirin. 4. Acute confusional state possibly related to the underlying abscess versus medication effects. 5. Chronic anemia with followup suggested. 6. Acute renal insufficiency, improved with hydration. 7. Moderate dehydration state. 8. Chronic diabetes mellitus type 2 on oral therapy. 9. History of hypertension. 10. Chronic urinary retention with a history of prostate cancer. 11. Mild dementia. 12. History of gastrointestinal bleed. 13. History of electrolyte imbalance showing improvement with diminished potassium and magnesium improving with supplementation. PLAN: Will continue with ongoing local care with dressing changes with Dr. Tim 's further assistance as we continue to monitor and treat the significant perirectal abscess approached with incision and drainage earlier today by Dr. Tim. Special attention to adequate nutrition and observe diabetes closely. Await cultures in the morning. #[id number] [facility]
[2016-12-16] MEDS: PANTOPRAZOLE SODIUM IV 40 MG VIAL IV SCH (21:29)
[2016-12-16] MEDS: SIMVASTATIN 20 MG TAB PO SCH (21:30)
[2016-12-16] MEDS: ENOXAPARIN SODIUM 40 MG/0.4 ML SYG SUBCU SCH (21:30)
[2016-12-16] MEDS: IV SET AND CAP CHANGE INJ INJ SCH (21:30)
[2016-12-17] MEDS: SODIUM CHLORIDE 0.9% 1000ML 1,000 ML IVS PRN (06:47)
[2016-12-17] MEDS: INSULIN LISPRO 100 UNITS/ML PEN SUBCU SCH ×4 (08:37→21:00)
[2016-12-17] MEDS ORDERED: SODIUM CHLORIDE 0.9% 250ML 250 ML ONE ×2 (08:40→21:02)
[2016-12-17] MEDS ORDERED: VANCOMYCIN HCL INJ 1,000 MG VIAL IVPB ONE ×2 (08:41→21:04)
[2016-12-17] MEDS: glyBURIDE 5 MG TAB PO SCH ×2 (08:56→09:19)
[2016-12-17] MEDS: NON-FORMULARY MEDICATION 1 EA MIS (Umeclidinium-Vilanterol [Anoro Ellipta 62.5-25 Mcg/Inh] INH SCH (09:05)
[2016-12-17] MEDS: LEVALBUTEROL NEBS 1.25 MG/3 ML VIAL NEB SCH ×4 (09:05→20:44)
[2016-12-17] MEDS: METOPROLOL TARTRATE 25 MG TAB PO SCH ×2 (09:19→17:05)
[2016-12-17] MEDS: RAMIPRIL 5 MG CAP PO SCH (09:19)
[2016-12-17] MEDS: TAMSULOSIN 0.4 MG CAP PO SCH (09:19)
[2016-12-17] MEDS: VANCOMYCIN HCL INJ 750 MG in SODIUM CHLORIDE 0.9% 250ML 250 ML IVPB SCH ×2 (09:55→21:25)
[2016-12-17] MEDS ORDERED: levoFLOXacin 500MG IV 100 ML IVPB ONE (12:49)
[2016-12-17] MEDS: levoFLOXacin 500MG IV 500 MG in PREMIX BAG 1 BAG IVPB SCH (12:53)
--- NOTE | 2016-12-17 14:19 | PN ---
DATE: 12/17/16 SUBJECTIVE: The patient is lying in the bed and appears to be in less distress compared to yesterday, less burning discomfort in the region of the perirectal abscess is noted. Appetite is improving steadily. He is fairly alert and communicative. No shortness of breath or chest pain. No nausea or vomiting. OBJECTIVE: VITAL SIGNS: Afebrile. Pulse 80. Blood pressure 118/67. Pulse oximetry 96% on room air. Weight 85.6 kg. GENERAL: The patient is awake and alert. LUNGS: Clear. HEART: Regular. ABDOMEN: Soft. The incision site is examined specifically by Dr. Tim and dressing change has been made. LABORATORY: White count down to 9,200 with 66% neutrophils, hemoglobin 8.6. Chemistries show potassium 3.7, BUN 19, creatinine 1.11. Stool occult blood is negative. Await vancomycin trough this evening. Blood cultures are negative. Perirectal abscess culture is growing gram positive cocci with final ID and sensitivity by in the morning. Treatment with vancomycin is to continue with Levaquin coverage as well. ASSESSMENT: 1. An acute perirectal abscess requiring incision and drainage by Dr. Tim, day 1 postoperative with cultures pending on vancomycin and fluoroquinolone treatment. 2. History of rhabdomyolysis with CPK showing improvement towards normal. 3. Non-ST segment elevation myocardial infarction with elevated troponin, slowly returning towards normal on Lovenox and aspirin. 4. Acute confusional state, improved. 5. Chronic anemia with followup to continue. 6. Acute renal insufficiency, improved with hydration. 7. Moderate dehydration state, improved with hydration. 8. Chronic diabetes mellitus type 2 on oral therapy. 9. History of hypertension. 10. History of chronic urinary retention with a history of prostate cancer. 11. Mild dementia. 12. History of gastrointestinal bleed with stool guaiacs negative at this time. 13. History of electrolyte imbalance with low potassium and magnesium, improved with supplementation. PLAN: Continue with close observation with general surgery supervision of wound care. Await culture results by in the morning. Encourage good nutrition and to assist with ongoing host response as the treatment course continues. #[id number] [facility]
[2016-12-17] MEDS: NITROGLYCERIN 0.1 MG/HR PATCH TD SCH (14:41)
[2016-12-17] MEDS: BIFIDOBACTERIUM INFANTIS 4 MG CAP PO SCH ×2 (17:05→21:24)
[2016-12-17] MEDS ORDERED: SODIUM CHL 0.9% 250ML (AVIVA) 250 ML IVPB ONE (21:08)
[2016-12-17] MEDS: SIMVASTATIN 20 MG TAB PO SCH (21:24)
[2016-12-17] MEDS: PANTOPRAZOLE SODIUM IV 40 MG VIAL IV SCH (21:24)
[2016-12-17] MEDS: ENOXAPARIN SODIUM 40 MG/0.4 ML SYG SUBCU SCH (21:24)
[2016-12-18] MEDS: INSULIN LISPRO 100 UNITS/ML PEN SUBCU SCH ×4 (07:29→22:00)
[2016-12-18] MEDS ORDERED: VANCOMYCIN HCL INJ 1,000 MG VIAL IVPB ONE ×2 (07:32→20:35)
[2016-12-18] MEDS ORDERED: SODIUM CHLORIDE 0.9% 250ML 250 ML ONE ×2 (07:32→20:34)
[2016-12-18] MEDS: glyBURIDE 5 MG TAB PO SCH (07:52)
[2016-12-18] MEDS: METOPROLOL TARTRATE 25 MG TAB PO SCH ×2 (07:52→16:45)
[2016-12-18] MEDS: VANCOMYCIN HCL INJ 750 MG in SODIUM CHLORIDE 0.9% 250ML 250 ML IVPB SCH ×2 (08:42→21:14)
[2016-12-18] MEDS: TAMSULOSIN 0.4 MG CAP PO SCH (08:43)
[2016-12-18] MEDS: RAMIPRIL 5 MG CAP PO SCH (08:43)
[2016-12-18] MEDS: BIFIDOBACTERIUM INFANTIS 4 MG CAP PO SCH ×2 (08:43→21:13)
[2016-12-18] MEDS: NON-FORMULARY MEDICATION 1 EA MIS (Umeclidinium-Vilanterol [Anoro Ellipta 62.5-25 Mcg/Inh] INH SCH (09:15)
[2016-12-18] MEDS: SULFA/TRIMETH 800/160 (DS) TAB 1 EA TAB PO SCH ×2 (11:02→21:23)
[2016-12-18] MEDS: PANTOPRAZOLE SODIUM TAB 40 MG PO SCH (12:15)
[2016-12-18] MEDS: LEVALBUTEROL NEBS 1.25 MG/3 ML VIAL NEB SCH ×3 (12:27→19:25)
[2016-12-18] MEDS ORDERED: levoFLOXacin 500MG IV 100 ML IVPB ONE (13:04)
[2016-12-18] MEDS: levoFLOXacin 500MG IV 500 MG in PREMIX BAG 1 BAG IVPB SCH (13:17)
[2016-12-18] MEDS: NITROGLYCERIN 0.1 MG/HR PATCH TD SCH (13:55)
[2016-12-18] MEDS: SODIUM CHLORIDE 0.9% 1000ML 1,000 ML IVS PRN (15:07)
--- NOTE | 2016-12-18 15:39 | PN ---
DATE: 12/18/16 SUPERVISING PHYSICIAN: Britton Miller M.D. SUBJECTIVE: The patient is resting in bed. The patient apparently had a little episode of confusion last night, but this morning he is alert and oriented. He notes that he does remember being confused by is uncertain as to why. The confusional state could possibly be related to some dementia which the patient has a history of. He remains afebrile. He has had no complaints of nausea or vomiting but he has had some diarrhea. OBJECTIVE: VITAL SIGNS: Temperature 98.4, pulse 83, blood pressure 127/74, respirations 20, O2 sat 95% on room air. I's and O's show a negative balance of 1644 with 2156 in, 3800 out. She had 3 bowel movements. Weight 83.1 kg. GENERAL: The patient is alert, resting and appears to be in no distress. CHEST : Lungs are clear to auscultation bilaterally. HEART: Regular rate and rhythm. ABDOMEN: Soft, non-tender. Positive bowel sounds. INTEGUMENT: Incision site is dressed and clean. It is being followed by Dr. Tim. LABORATORY: White count remains normal at 9.6, hemoglobin is showing some improvement today at 8.8 and 26.4, platelet count remains within normal limits at 165,000. Differential is within normal limits. Chemistries: Electrolytes were stable and within normal limits on the 2nd, blood sugars remain stable between 74 and 109 with adjustments made to his diabetic medication. MICROBIOLOGY: Wound culture abscess perirectal area showed Staphylococcus aureus which is Methicillin resistant Staphylococcus aureus sensitive to Gentamicin, Zyvox, Rifampin, vancomycin and Bactrim. Please refer to full results for full sensitivity report. Blood cultures remain negative after 5 days. ASSESSMENT: 1. Postoperative day 2 acute perirectal abscess requiring incision and drainage by Dr. Tim with final culture results showing Methicillin resistant Staphylococcus aureus with sensitivity showing sensitive to vancomycin, the patient remaining on Levaquin and transitioned to p.o. Bactrim. 2. History of Rhabdomyolysis with CPK improved to within near normal limits after IV therapy. 3. Non-ST segment elevation myocardial infarction with elevated troponin with last troponin being 2.97 from a maximum of 6.98 on 12/14/16 with the patient remaining without any complaints of chest pains. 4. Acute confusional state, improved. 5. Chronic anemia with needed followup in the outpatient setting. 6. Acute renal insufficiency, improved after rehydration. 7. Moderate dehydration, improved after IV therapy. 8. Chronic diabetes mellitus type 2 on oral therapy requiring modification of medications. 9. Hypertension. 10. History of chronic urinary retention with a history of prostate cancer requiring urinary bladder catheterization. 11. Mild dementia. 12. History of gastrointestinal bleed with stool guaiacs being positive times 1 with a stable H&H. 13. History of electrolyte imbalance with hypokalemia and hypomagnesemia, improved after supplementation. PLAN: Will continue to follow the patient along with General Surgery supervision for wound care. Will repeat a CBC and BMP in the morning. Dr. Tim has requested that we add Bactrim to his medication regimen given the final sensitivity report and continue with wound care to include sitz baths daily and wound care twice a day with gentle packing with moist 4 x 4s and removal of 6 inches of packing daily. Will anticipate discharge possibly tomorrow again under the recommendations of Dr. Tim, General Surgery. Until then, will continue to monitor the patient closely and treat appropriately. #[id number] [facility]
[2016-12-18] MEDS: SIMVASTATIN 20 MG TAB PO SCH (21:13)
[2016-12-18] MEDS: ENOXAPARIN SODIUM 40 MG/0.4 ML SYG SUBCU SCH (21:16)
[2016-12-19] MEDS: PANTOPRAZOLE SODIUM TAB 40 MG PO SCH (06:09)
[2016-12-19] MEDS: INSULIN LISPRO 100 UNITS/ML PEN SUBCU SCH ×4 (07:09→20:59)
[2016-12-19] MEDS ORDERED: levoFLOXacin 500MG IV 100 ML IVPB ONE (07:12)
[2016-12-19] MEDS: METOPROLOL TARTRATE 25 MG TAB PO SCH ×2 (07:54→16:35)
[2016-12-19] MEDS: glyBURIDE 5 MG TAB PO SCH (07:54)
[2016-12-19] MEDS: LEVALBUTEROL NEBS 1.25 MG/3 ML VIAL NEB SCH ×4 (08:21→20:45)
[2016-12-19] MEDS: NON-FORMULARY MEDICATION 1 EA MIS (Umeclidinium-Vilanterol [Anoro Ellipta 62.5-25 Mcg/Inh] INH SCH (08:22)
[2016-12-19] MEDS ORDERED: SODIUM CHLORIDE 0.9% 250ML 250 ML ONE ×2 (09:15→20:05)
[2016-12-19] MEDS ORDERED: VANCOMYCIN HCL INJ 1,000 MG VIAL IVPB ONE ×2 (09:15→20:05)
[2016-12-19] MEDS: VANCOMYCIN HCL INJ 750 MG in SODIUM CHLORIDE 0.9% 250ML 250 ML IVPB SCH ×2 (09:36→20:52)
[2016-12-19] MEDS: BIFIDOBACTERIUM INFANTIS 4 MG CAP PO SCH ×2 (09:37→20:51)
[2016-12-19] MEDS: TAMSULOSIN 0.4 MG CAP PO SCH (09:37)
[2016-12-19] MEDS: SULFA/TRIMETH 800/160 (DS) TAB 1 EA TAB PO SCH ×2 (09:37→22:33)
[2016-12-19] MEDS: RAMIPRIL 5 MG CAP PO SCH (09:37)
[2016-12-19] MEDS: levoFLOXacin 500MG IV 500 MG in PREMIX BAG 1 BAG IVPB SCH (12:40)
[2016-12-19] MEDS: NITROGLYCERIN 0.1 MG/HR PATCH TD SCH (14:46)
--- NOTE | 2016-12-19 16:35 | PN ---
DATE: 12/19/16 SUPERVISING PHYSICIAN: Britton Miller M.D. SUBJECTIVE: The patient is resting. He has not had any fevers. He has a good appetite. Says he is feeling much better than when he was admitted. He has had less confusion in the last 24 hours. He has no complaints of nausea or vomiting, or any diarrhea at this point. OBJECTIVE: VITAL SIGNS: T max 98.8, pulse 85, blood pressure 118/66, respirations 20, O2 sat 90% on room air. I's and O's show a negative balance of 966 with 1984 in, 2950 out. He has had 1 bowel movement today. Weight 83.1 kg. GENERAL: The patient appears to be comfortable and alert in no distress. CHEST: Lungs are clear to auscultation. HEART: Regular rate and rhythm. ABDOMEN: Soft, non-tender. Positive bowel sounds. INTEGUMENT: Incision sit remains clean and dry with dressing in place and continues to be followed closely by Dr. Tim for wound management. LABORATORY: white count remains within normal limits at 9.4, hemoglobin and hematocrit showing improvement, today is 8.9 and 27.0 with platelet count 183, 000. Differential shows to be within normal limits. Chemistries show normal electrolytes with potassium 3.7 with BUN 22, creatinine 1.21, glucoses have been 86 to 201. Calcium 8.8. MICROBIOLOGY: Clostridium Difficile toxin A and B was both negative for antigen and toxin A and B. Blood cultures remain negative after 5 days. ASSESSMENT: 1. Postoperative day 2 acute perirectal abscess requiring incision and drainage by Dr. Tim with final culture results showing Methicillin resistant Staphylococcus aureus with sensitivity shown to vancomycin and Bactrim with the patient remaining on vancomycin, Levaquin and transitioned to p.o. Bactrim. 2. History of Rhabdomyolysis with CPK showing improvement after IV therapy. 3. Non-ST segment elevation myocardial infarction with history of elevated troponin showing improvement by returning back to baseline with the patient remaining without any complaints of chest pain. 4. Acute confusional state, improved. 5. Chronic anemia, continues to need close followup in the outpatient setting. 6. Acute renal insufficiency, improved after hydration. 7. Moderate dehydration, improved after IV therapy. 8. Chronic diabetes mellitus type 2 on oral therapy continuing to require close monitoring. 9. Hypertension. 10. History of urinary retention with history of prostate cancer requiring urinary bladder catheterization. 11. Mild dementia. 12. History of gastrointestinal bleed with stool guaiacs being positive times 1 and a stable H&H showing improvement. 13. History of electrolyte imbalance with hypokalemia and hypomagnesemia improved after supplementation and resolved. PLAN: Will continue to follow the patient closely with Dr. Tim with continued wound care. The patient remains on Bactrim and vancomycin along with additional antibiotics to include Levaquin. Wound care consisting of 4 x 4s with continuation of removal of 6 inches of packing daily. Anticipate probable discharge tomorrow either home or possibly to Swing Bed for continued wound management. Until then, will continue to monitor the patient closely and treat appropriately. #[id number] [facility]
[2016-12-19] MEDS: SIMVASTATIN 20 MG TAB PO SCH (20:51)
[2016-12-19] MEDS: ENOXAPARIN SODIUM 40 MG/0.4 ML SYG SUBCU SCH (20:51)
[2016-12-19] MEDS: IV SET AND CAP CHANGE INJ INJ SCH (20:59)
[2016-12-20] MEDS: PANTOPRAZOLE SODIUM TAB 40 MG PO SCH (06:35)
[2016-12-20] MEDS ORDERED: SODIUM CHLORIDE 0.9% 250ML 250 ML ONE ×2 (07:41→20:58)
[2016-12-20] MEDS ORDERED: VANCOMYCIN HCL INJ 1,000 MG VIAL IVPB ONE ×2 (07:42→20:59)
[2016-12-20] MEDS ORDERED: levoFLOXacin 500MG IV 0 ML IVPB ONE (07:42)
[2016-12-20] MEDS: INSULIN LISPRO 100 UNITS/ML PEN SUBCU SCH ×4 (07:45→21:45)
[2016-12-20] MEDS: glyBURIDE 5 MG TAB PO SCH (07:48)
[2016-12-20] MEDS: METOPROLOL TARTRATE 25 MG TAB PO SCH ×2 (07:48→16:29)
[2016-12-20] MEDS: VANCOMYCIN HCL INJ 750 MG in SODIUM CHLORIDE 0.9% 250ML 250 ML IVPB SCH ×2 (08:40→21:45)
[2016-12-20] MEDS: LEVALBUTEROL NEBS 1.25 MG/3 ML VIAL NEB SCH ×4 (08:40→19:24)
[2016-12-20] MEDS: TAMSULOSIN 0.4 MG CAP PO SCH (08:41)
[2016-12-20] MEDS: RAMIPRIL 5 MG CAP PO SCH (08:41)
[2016-12-20] MEDS: BIFIDOBACTERIUM INFANTIS 4 MG CAP PO SCH ×2 (08:41→21:44)
[2016-12-20] MEDS: NON-FORMULARY MEDICATION 1 EA MIS (Umeclidinium-Vilanterol [Anoro Ellipta 62.5-25 Mcg/Inh] INH SCH (09:06)
[2016-12-20] MEDS: SULFA/TRIMETH 800/160 (DS) TAB 1 EA TAB PO SCH ×2 (10:10→21:44)
[2016-12-20] MEDS: NITROGLYCERIN 0.1 MG/HR PATCH TD SCH (14:16)
--- NOTE | 2016-12-20 16:56 | PN ---
DATE: 12/20/16 SUPERVISING PHYSICIAN: Raymundo Sarmiento M.D. SUBJECTIVE: The patient had a better night. He has no reported confusion. He continues to be without any nausea, vomiting or diarrhea. He remains afebrile. He says that his wound is much less painful today. OBJECTIVE: VITAL SIGNS: T max 98.8, pulse 83, blood pressure 123/68, respirations 20, satting 93% on room air. I's and O's show a negative balance of 1885 with 2140 in, 4025 out. He has had 2 bowel movements. Weight is 83.1 kg. CHEST: Lungs are clear to auscultation bilaterally. HEART: Regular rate and rhythm. ABDOMEN: Soft, non-tender. Positive bowel sounds. EXTREMITIES: No clubbing, cyanosis or edema. INTEGUMENT: Incision site remains clean and dry with dressing continuing to be followed closely by Dr. Tim for wound management. LABORATORY: Blood sugars are ranging from 74 to 175. There were no repeat laboratory studies today. ASSESSMENT: 1. Postoperative day 3 acute perirectal abscess requiring incision and drainage by Dr. Tim with final culture results showing Methicillin resistant Staphylococcus aureus sensitive to vancomycin and Bactrim with the patient now remaining on vancomycin and Bactrim with Levaquin being discontinued with the patient showing good improvement daily with wound care. 2. Previous history of Rhabdomyolysis with CPK normalized after IV therapy. 3. Non-ST segment elevation myocardial infarction with history of elevated troponin with troponin returning back to baseline and the patient remaining without any complaints of chest pain. 4. Acute confusional state felt to be possibly related to his underlying dementia along with some mild Sundowners. 5. Chronic anemia continue to followup in the outpatient setting. 6. Acute renal insufficiency, improved after IV fluids. 7. Moderate dehydration improved with IV therapy. 8. Chronic diabetes mellitus type 2 on oral therapy showing to be stable. 9. History of hypertension. 10. History of urinary retention with a history of prostate cancer requiring urinary bladder catheterization with bladder training initiated with anticipation of removing catheter. 11. Mild dementia. 12. History of gastrointestinal bleed with stool guaiacs being positive times 1 but H&H showing to be stable. 13. History of electrolyte imbalance with hypokalemia and hypomagnesemia improved after supplementation. PLAN: Will continue to follow the patient closely along with Dr. Meeta. Anticipate discharging the patient tomorrow to go to Swing Bed for continued wound care and IV antibiotics as well as p.o. Bactrim. He does have Home Health available, however he is requiring at least twice daily wound care and p.r.n., and Home Health will be unable to perform wound care as often as needed and as well as the patient is unable to do his own wound care in regards to need for changing of wounds should he have an episode of contamination from bowel movements. Family is unable to provide a significant amount of care in regards to wound care, therefore additional days on Swing Bed are required along with some physical therapy for reconditioning. Anticipate tomorrow discharging to Swing Bed. Until then, will continue to monitor the patient closely and treat appropriately. #[id number] [facility]
[2016-12-20] MEDS: ENOXAPARIN SODIUM 40 MG/0.4 ML SYG SUBCU SCH (21:44)
[2016-12-20] MEDS: SIMVASTATIN 20 MG TAB PO SCH (21:44)
[2016-12-20] MEDS: SODIUM CHLORIDE 0.9% 1000ML 1,000 ML IVS PRN (21:49)
[2016-12-21] MEDS: PANTOPRAZOLE SODIUM TAB 40 MG PO SCH (06:12)
[2016-12-21 06:15] VITALS: BP 129/67; TEMP 98
[2016-12-21] MEDS ORDERED: SODIUM CHLORIDE 0.9% 250ML 250 ML ONE (07:23)
[2016-12-21] MEDS ORDERED: VANCOMYCIN HCL INJ 1,000 MG VIAL IVPB ONE (07:24)
[2016-12-21] MEDS: METOPROLOL TARTRATE 25 MG TAB PO SCH (07:52)
[2016-12-21] MEDS: glyBURIDE 5 MG TAB PO SCH (07:53)
[2016-12-21] MEDS: INSULIN LISPRO 100 UNITS/ML PEN SUBCU SCH (07:53)
[2016-12-21] MEDS: NON-FORMULARY MEDICATION 1 EA MIS (Umeclidinium-Vilanterol [Anoro Ellipta 62.5-25 Mcg/Inh] INH SCH (08:23)
[2016-12-21] MEDS: LEVALBUTEROL NEBS 1.25 MG/3 ML VIAL NEB SCH (08:23)
[2016-12-21] MEDS: BIFIDOBACTERIUM INFANTIS 4 MG CAP PO SCH (09:12)
[2016-12-21] MEDS: RAMIPRIL 5 MG CAP PO SCH (09:12)
[2016-12-21] MEDS: SULFA/TRIMETH 800/160 (DS) TAB 1 EA TAB PO SCH (09:12)
[2016-12-21] MEDS: TAMSULOSIN 0.4 MG CAP PO SCH (09:12)
[2016-12-21] MEDS: VANCOMYCIN HCL INJ 750 MG in SODIUM CHLORIDE 0.9% 250ML 250 ML IVPB SCH (09:13)
[2016-12-21 09:38] VITALS: O2SAT 92
--- NOTE | 2016-12-23 10:20 | DS ---
SUPERVISING PHYSICIAN: Raymundo Sarmiento MD ADMISSION TO ACUTE CARE: 12/13/16 DISCHARGE TO SWING BED: 12/21/16 DISCHARGE DIAGNOSIS: 1. Postoperative day #4 for acute perirectal abscess that required intravenous antibiotics performed by Dr. Tim with final culture results from drainage being methicillin resistant Staphylococcus aureus which showed a sensitivity pattern being sensitive to vancomycin and Bactrim with patient having been on vancomycin since postoperative day #1 with wound care required twice a day along with continued parenteral antibiotics , thus requiring admission to Swing Bed. 2. History of rhabdomyolysis from recent falls showing improvement after IV therapy prior to admission to Swing Bed. 3. History of recent non-ST segment elevation myocardial infarction with patient being without any chest pain during acute care followed by Dr. Armendariz. 4. History of dementia. 5. Chronic anemia on oral iron therapy and requiring further followup in outpatient setting. 6. Mild acute renal insufficiency showing improvement after IV fluids on acute care. 7. Chronic diabetes mellitus on oral therapy, stable. 8. History of hypertension. 9. History of urinary retention with a history of prostate cancer requiring urinary bladder catheterization for urinary retention on acute care. 10. History of previous gastrointestinal bleeds with one positive guaiac on acute care but showing a stable H&H prior to discharge and admission to Swing Bed. HISTORY OF PRESENT ILLNESS: This is an 81 year-old male patient initially presenting through the Emergency Department on 12/13/16 with complaints secondary to decreased mental status. Mr. Brandon has a history of some mild dementia and on the date of admission he was brought to the Emergency Room secondary to acute mental status change. Several days prior to the admission to the Emergency Room, he had had several falls and increasing confusion that especially worsened over the 24 hours prior to admission. He also has a history of benign prostatic hypertrophy with prostate cancer and has had urinary retention also known at times. It was reported by the family that the patient was found on the morning of admission in the laundry basket. Apparently he had gotten up during the night and fallen and had laid in the laundry basket, unable to get up. Initial lab work in the Emergency Department showed a leukocytosis of 14,000 with a left shift, hemoglobin 10 and hematocrit 29.7. Cardiac enzymes had shown to be elevated with a troponin of 1.23 and an elevated creatinine kinase of 1585. It was noted in his history that 2 months previous to admission, he had spent several days in [facility] for sepsis and subsequent congestive heart failure and it was felt likely that he had an ischemic cardiomyopathy. In the Emergency Room, Dr. Armendariz, his traffic sign erection supervisor, was notified and the case was discussed. He recommended that the patient needed no further workup, there were some question as to whether the origin of the sepsis was pneumonia. CT of the head in the Emergency Department per radiology interpretation showed just generalized volume loss, vascular calcifications and chronic ischemic changes but no acute intracranial abnormalities. He was also having some abdominal pains and a urine catheter was placed with about a liter of clear yellow fluid returned. There is also note that he was found to have a tender mass in the left buttocks that was consistent with an early abscess and cellulitis. The patient then was admitted to the medical/surgical floor for further treatment and evaluation. He was given IV fluids. A surgical consultation with Dr. Tim was obtained after which the patient had an incision and drainage of the abscess to his left buttocks. The patient was started on antibiotics initially to include vancomycin and Levaquin. After incision and drainage, wound care was started. The patient showed good clinical improvement but continued to require wound care at least twice a day and sometimes more depending on number of bowel movements throughout the day. The patient is unable to fully assist with wound care and there are no resources available to assist the patient with wound care twice a day at home. He is also quite weak and deconditioned from length of stay in the hospital from previous admission, therefore, the patient is going to be admitted to Swing Bed today for rehabilitation and reconditioning along with continued antibiotic therapy with cultures that showed MRSA from incision and drainage that was sensitive to vancomycin and Bactrim. He will be provided with continued antibiotic therapy and aggressive wound management. The patient was admitted to Swing Bed in stable condition. LABORATORY: CBC initially showed white count 14.0. After initiation of treatment and prior to discharge from Acute Care and admission to Swing Bed, white count had normalized to 9.2. Hemoglobin had decreased, but was fairly stable and at discharge was 8.6 and hematocrit 25.9 with platelet count 147,000 , differential within normal limits. Coagulation studies showed slightly elevated PT of 15.7 with INR 1.39, PT-T25.6. Chemistries initially on admission showed sodium 134, potassium 3.4, BUN 29, creatinine 1.36, glucose elevated at 260. He did have elevated troponins initially of 1.23 and BNP 656. CPK was elevated at 969 with CK-MB 29.4. After admission and treatment, he had clinical improvement and at time of discharge and admission to Swing Bed, his electrolytes had normalized. Sodium was 139, potassium 3.7, BUN 22, creatinine 1.21, glucoses had stabilized after modification of his p.o. medications. Last CK had normalized to 164, troponin maximized at 6.98 and prior to discharge on last specimen collected on 12/16/16, it had gone down to 2.97. Urinalysis initially showed urine protein 100, 15 ketones, large amount of blood. Microscopic revealed 10 to 20 RBCs, otherwise no bacterial or WBCs noted. He did have occult bloods, one negative and two positive. He had three vancomycin troughs. Initial was 6.7 and after initiation of vancomycin and stabilization, his last draw prior to discharge to Swing Bed was 14.6. MICROBIOLOGY: Blood cultures were negative after 5 days. Wound culture of the abscess in the perirectal area that grew MRSA. C. difficile toxin A and B on stool was negative. RADIOLOGY: Initial chest x-ray per radiology interpretation showed no infiltrates or consolidations. Head CT showed generalized age-appropriate loss , vascular calcifications, but no intracranial abnormalities per radiology interpretation. Bilateral lower extremity ultrasounds were negative for DVT. HOSPITAL COURSE: As noted, Mr. Brandon was admitted on 12/13/16 as per history of present illness. Ultimately, he had incision and drainage of the perirectal abscess with medical consultation and surgery performed by Dr. Tim. The patient was started on Levaquin and vancomycin. After culture results showed MRSA and sensitivity report indicated sensitivity to vancomycin, but resistance to Levaquin, the patient was started on p.o. Bactrim and continued on vancomycin per pharmacy protocol. The patient clinically progressed well, but continued to need aggressive wound management as noted in his history of present illness. Therefore, it was felt it would be of benefit to the patient as he could not perform wound care at home and did not have resources, that he would be admitted to Swing Bed. PLAN: The patient will be admitted to Swing Bed for reconditioning and rehabilitation as well as continued aggressive wound management and parenteral antibiotics to include vancomycin as well as p.o. Bactrim. The patient requires wound management twice a day and with bowel movements as needed. The patient was discharged from Acute Care and admitted to [facility] on same date, 12/21/16. #[id number] [facility]ERVictoria
== END 2016-12-21 09:34 | disposition swing bed (61) | DRG 853 ==
LOC: ER 10:48 → MS 17:06 → OBSVTOIN 17:06
PROVIDERS: ADMIT Nurse Practitioner Acute Care; ATTEND Nurse Practitioner Family
PROC: 0D9P0ZZ Drainage of Rectum, Open Approach (ICD-10-PCS; principal; 2016-12-16 10:30)
DX: A41.9 Sepsis, unspecified organism (principal); I21.4 Non-ST elevation (NSTEMI) myocardial infarction; K61.1 Rectal abscess; L03.317 Cellulitis of buttock; M62.82 Rhabdomyolysis; N17.9 Acute kidney failure, unspecified; E86.0 Dehydration; E87.6 Hypokalemia; E83.42 Hypomagnesemia; E11.9 Type 2 diabetes mellitus without complications; I11.0 Hypertensive heart disease with heart failure; I50.9 Heart failure, unspecified; B95.62 Methicillin resistant Staphylococcus aureus infection as the cause of diseases classified elsewhere; F03.90 Unspecified dementia, unspecified severity, without behavioral disturbance, psychotic disturbance, mood disturbance, and anxiety; D64.9 Anemia, unspecified; N28.9 Disorder of kidney and ureter, unspecified; R33.9 Retention of urine, unspecified; R19.5 Other fecal abnormalities; N40.1 Benign prostatic hyperplasia with lower urinary tract symptoms; R29.6 Repeated falls; I25.10 Atherosclerotic heart disease of native coronary artery without angina pectoris; I25.5 Ischemic cardiomyopathy; I25.2 Old myocardial infarction; Z79.84 Long term (current) use of oral hypoglycemic drugs; Z79.899 Other long term (current) drug therapy; Z87.891 Personal history of nicotine dependence; Z92.3 Personal history of irradiation; Z85.46 Personal history of malignant neoplasm of prostate

== ENCOUNTER 2016-12-21 09:44 | Inpatient (IN) | payer MEDICARE ==
[2016-12-21] MEDS ORDERED: VANCOMYCIN PER PHARMACY IVPB SCH (15:30)
[2016-12-21] MEDS ORDERED: SODIUM CHLORIDE 0.9% (FLUSH) 10 ML SYG IV PRN (15:59)
[2016-12-21] MEDS ORDERED: OMEPRAZOLE CAP 20 MG CAP PO SCH (16:30)
[2016-12-21] MEDS ORDERED: DEXTROSE 50% 25 GM/50 ML SYG IV PRN (16:48)
[2016-12-21] MEDS ORDERED: GLUCAGON INJ 1 MG VIAL SUBCU PRN (16:48)
[2016-12-21] MEDS: IV SET AND CAP CHANGE INJ INJ SCH (16:56)
[2016-12-21] MEDS: METOPROLOL TARTRATE 25 MG TAB PO SCH (16:57)
--- NOTE | 2016-12-21 17:14 | PCM.CORE ---
Physician DVT/VTE - Nurse DVT Assessment & Total Each Risk Factor Represents 3 Points: Age over 75 years, Medical PT with Hx of IN, CHF, Severe infection/sepsis Each Risk Factor is 1 Point: Obesity (BMI >25) DVT Assessment Score: 7 - 5 or more Very High Risk Treatments: Early Ambulation *, Sequential Compression Device Pharmacological: Enoxaparin 40mg SQ Daily
[2016-12-21] MEDS ORDERED: SODIUM PHOS/BIPHOS ENEMA ADULT 133 ML BTTL PR PRN (17:42)
[2016-12-21] MEDS ORDERED: MAGNESIUM HYDROXIDE 30 ML UD PO PRN (17:42)
[2016-12-21] MEDS: NITROGLYCERIN 0.1 MG/HR PATCH TD SCH (18:04)
[2016-12-21] MEDS ORDERED: VANCOMYCIN HCL INJ 1,000 MG VIAL IVPB ONE (19:18)
[2016-12-21] MEDS ORDERED: SULFA/TRIMETH 800/160 (DS) TAB 1 EA TAB ONE (19:18)
[2016-12-21] MEDS ORDERED: BIFIDOBACTERIUM INFANTIS 4 MG CAP ONE (19:18)
[2016-12-21] MEDS ORDERED: SIMVASTATIN 20 MG TAB ONE (19:18)
[2016-12-21] MEDS ORDERED: SODIUM CHLORIDE 0.9% 250ML 250 ML ONE (19:18)
[2016-12-21] MEDS: SULFA/TRIMETH 800/160 (DS) TAB 1 EA TAB PO SCH (21:17)
[2016-12-21] MEDS: BIFIDOBACTERIUM INFANTIS 4 MG CAP PO SCH (21:17)
[2016-12-21] MEDS: SIMVASTATIN 20 MG TAB PO SCH (21:17)
[2016-12-21] MEDS: INSULIN LISPRO 100 UNITS/ML PEN SUBCU SCH (21:17)
[2016-12-21] MEDS: VANCOMYCIN HCL INJ 750 MG in SODIUM CHLORIDE 0.9% 250ML 250 ML IVPB SCH (21:21)
[2016-12-21] MEDS: SODIUM CHLORIDE 0.9% (FLUSH) 10 ML SYG IV SCH (21:21)
[2016-12-22] MEDS: REMOVE OLD PATCH TOP SCH (06:16)
[2016-12-22] MEDS: PANTOPRAZOLE SODIUM TAB 40 MG PO SCH (06:16)
--- NOTE | 2016-12-22 06:21 | RAD ---
EXAM: Two view chest. INDICATION: Chest pain. COMPARISON: Chest x-ray: 09/09/2016. FINDINGS: There is peribronchial thickening with a small left pleural effusion. The heart is normal in size. There is no pneumothorax. The bones are demineralized. IMPRESSION: Peribronchial thickening with a small left pleural effusion Electronically signed by: Kurtis Payne MD 12/22/2016 6:19 AM CDT
[2016-12-22] MEDS ORDERED: CYANOCOBALAMIN 1,000 MCG TAB ONE (07:06)
[2016-12-22] MEDS ORDERED: SODIUM CHLORIDE 0.9% 250ML 250 ML ONE ×2 (07:07→19:50)
[2016-12-22] MEDS ORDERED: VANCOMYCIN HCL INJ 1,000 MG VIAL IVPB ONE ×2 (07:07→19:51)
[2016-12-22] MEDS: INSULIN LISPRO 100 UNITS/ML PEN SUBCU SCH ×4 (07:27→21:20)
[2016-12-22] MEDS: METOPROLOL TARTRATE 25 MG TAB PO SCH ×2 (07:40→17:06)
[2016-12-22] MEDS: FERROUS SULFATE 325 MG TAB PO SCH (07:40)
[2016-12-22] MEDS: glyBURIDE 5 MG TAB PO SCH (07:40)
--- NOTE | 2016-12-22 08:37 | HP ---
SUPERVISING PHYSICIAN: HAMMAD FAROOQ MD: ACUTE CARE DISCHARGE: 12/21/16 SWING BED ADMISSION: 12/21/16 REASON FOR SWING BED ADMISSION: Continued wound care, parenteral IV therapy and reconditioning of strengthening. HISTORY OF PRESENT ILLNESS: This is an 81 year-old male patient initially presenting through the Emergency Department on 12/13/16 with complaints secondary to decreased mental status. Mr. Brandon has a history of some mild dementia and on the date of admission he was brought to the Emergency Room secondary to acute mental status change. Several days prior to the admission to the Emergency Room, he had had several falls and increasing confusion that especially worsened over the 24 hours prior to admission. He also has a history of benign prostatic hypertrophy with prostate cancer and has had urinary retention also known at times. It was reported by the family that the patient was found on the morning of admission in the laundry basket. Apparently he had gotten up during the night and fallen and had laid in the laundry basket, unable to get up. Initial lab work in the Emergency Department showed a leukocytosis of 14,000 with a left shift, hemoglobin 10 and hematocrit 29.7. Cardiac enzymes had shown to be elevated with a troponin of 1.23 and an elevated creatinine kinase of 1585. It was noted in his history that 2 months previous to admission, he had spent several days in [facility] for sepsis and subsequent congestive heart failure and it was felt likely that he had an ischemic cardiomyopathy. In the Emergency Room, Dr. Armendariz, his community relations rep, was notified and the case was discussed. He recommended that the patient needed no further workup, there were some question as to whether the origin of the sepsis was pneumonia. CT of the head in the Emergency Department per radiology interpretation showed just generalized volume loss, vascular calcifications and chronic ischemic changes but no acute intracranial abnormalities. He was also having some abdominal pains and a urine catheter was placed with about a liter of clear yellow fluid returned. There is also note that he was found to have a tender mass in the left buttocks that was consistent with an early abscess and cellulitis. The patient then was admitted to the medical/surgical floor for further treatment and evaluation. He was given IV fluids. A surgical consultation with Dr. Tim was obtained after which the patient had an incision and drainage of the abscess to his left buttocks. The patient was started on antibiotics initially to include vancomycin and Levaquin. After incision and drainage, wound care was started. The patient showed good clinical improvement but continued to require wound care at least twice a day and sometimes more depending on number of bowel movements throughout the day. The patient is unable to fully assist with wound care and there are no resources available to assist the patient with wound care twice a day at home. He is also quite weak and deconditioned from length of stay in the hospital from previous admission, therefore, the patient is going to be admitted to Swing Bed today for rehabilitation and reconditioning along with continued antibiotic therapy with cultures that showed MRSA from incision and drainage that was sensitive to vancomycin and Bactrim. He will be provided with continued antibiotic therapy and aggressive wound management. The patient was admitted to Swing Bed in stable condition. PAST MEDICAL HISTORY: 1. Gastrointestinal bleed. . 2. Prostatic cancer with radiation seeds placed. 3. Diabetes mellitus, . 4. Hypertension. 5. History of congestive heart failure. 6. Recent history of elevated troponin with close followup with cardiology. . PAST SURGICAL HISTORY: 1. Status post appendectomy. 2. Prostate cancer treatment. 3. Recent incision and drainage, left perirectal abscess of the buttocks on 10/[address] Tim. CURRENT MEDICATIONS: Please refer to electronic medical record or an updated list of verified medication. Medications listed include: 1. Glyburide 5 mg daily. 2. Vancomycin per pharmacy protocol. 3. Anoro Ellipta 62.5 mg/25 mcg inhaled 1 aeration daily. 4. Flomax 0.4 mg daily. 5. Bactrim DS 1 every 12 hours. 6. Altace 5 mg daily. 7. Protonix 40 mg daily. 8. Nitroglycerin patch 0.1 mg per hour every 24 hours. 9. Metoprolol 25 mg twice a day. 10. Lovastatin 40 mg daily. 11. Vitamin B12, 1000 mcg daily. 12. Calcium supplement, Os-Don 1 daily. 13. Perfect Iron 50 mg daily. 14. Align 4 mg twice a day.. ALLERGIES: NO KNOWN DRUG ALLERGIES FAMILY HISTORY: Unremarkable. SOCIAL HISTORY: The patient has a history of smoking but quit in 1979. Denies any alcohol usage. The patient is retired and lives in [place] with his . PHYSICAL EXAMINATION: VITAL SIGNS: Temperature 97.8, pulse 76, blood pressure 134/72, respirations 20, saturation 94% on room air. Admission weight 81.6 kg. GENERAL: The patient is well-nourished and well hydrated. He appears to be in no acute distress. Very comfortable. He is alert and oriented x3. HEENT: Tympanic membranes are clear bilaterally. Oropharynx is pink and moist without any lesions. NECK: No jugular venous distention. CHEST: Clear to auscultation bilaterally. CARDIOVASCULAR: Regular rate and rhythm without appreciable murmurs, gallops, or rubs. ABDOMEN: Soft, non-tender, positive bowel sounds. EXTREMITIES: No cyanosis, clubbing, or edema. There is a previous surgical incision to the left buttocks perirectal area that shows a deep incision, packing had been removed prior to discharge with good granulation and healing by secondary intention. Very little erythema is noted. No drainage. NEUROLOGIC: He is alert and oriented x3. LABORATORY: CBC, CMP, urinalysis pending. Chest x-ray pending. ASSESSMENT: 1. Postoperative day #4 for acute perirectal abscess that required intravenous antibiotics performed by Dr. Tim with final culture results from drainage being methicillin resistant Staphylococcus aureus which showed a sensitivity pattern being sensitive to vancomycin and Bactrim with patient having been on vancomycin since postoperative day #1 with wound care required twice a day along with continued parenteral antibiotics , thus requiring admission to Swing Bed. 2. History of rhabdomyolysis from recent falls showing improvement after IV therapy prior to admission to Swing Bed. 3. History of recent non-ST segment elevation myocardial infarction with patient being without any chest pain during acute care followed by Dr. Armendariz. 4. History of dementia. 5. Chronic anemia on oral iron therapy and requiring further followup in outpatient setting. 6. Mild acute renal insufficiency showing improvement after IV fluids on acute care. 7. Chronic diabetes mellitus on oral therapy, stable. 8. History of hypertension. 9. History of urinary retention with a history of prostate cancer requiring urinary bladder catheterization for urinary retention on acute care. 10. History of previous gastrointestinal bleeds with one positive guaiac on acute care but showing a stable H&H prior to discharge and admission to Swing Bed. PLAN: The patient will be admitted to Swing Bed for reconditioning and rehabilitation as well as continued aggressive wound management and parenteral antibiotics to include vancomycin as well as p.o. Bactrim. The patient requires wound management twice a day and with bowel movements as needed. He is able to take a shower and is encouraged to do so after every bowel movement to irrigate wound. Orders are to keep the wound clean and pack with moist [address] Meeta atwood as agreed to assist in management of wound care while on Swing Bed. Will continue with antibiotics to include vancomycin per pharmacy protocol and Bactrim DS every 12 hours for a minimum of 10 days. Anticipate length of stay to be anywhere from 5 to 7 days depending on degree do wound healing and again, need for need aggressive wound management. Will plan to do baseline lab studies in the morning to include a CBC, CMP and urinalysis as well as a 2-view chest x-ray. He also has a history of anemia which he is on p.o. iron therapy but will need close followup in an outpatient setting for a more in-depth workup once the patient is able to be discharged from Swing Bed. Until discharge, we will continue to provide wound care and followup patient along with set goals with physical therapy and do a aids social worker consultation for discharge planning as well as order a physical therapy. We will continue to monitor the patient and treat appropriately. #[id number] [facility]
[2016-12-22] MEDS: SULFA/TRIMETH 800/160 (DS) TAB 1 EA TAB PO SCH ×2 (08:44→20:48)
[2016-12-22] MEDS: DOCUSATE SODIUM 100 MG CAP PO SCH (08:44)
[2016-12-22] MEDS: CYANOCOBALAMIN 1,000 MCG TAB PO SCH (08:44)
[2016-12-22] MEDS: BIFIDOBACTERIUM INFANTIS 4 MG CAP PO SCH ×2 (08:44→20:48)
[2016-12-22] MEDS: CALCIUM CARBONATE-VITAMIN D 500 MG TAB PO SCH (08:45)
[2016-12-22] MEDS: VANCOMYCIN HCL INJ 750 MG in SODIUM CHLORIDE 0.9% 250ML 250 ML IVPB SCH ×2 (08:45→20:48)
[2016-12-22] MEDS: TAMSULOSIN 0.4 MG CAP PO SCH (08:45)
[2016-12-22] MEDS: RAMIPRIL 5 MG CAP PO SCH (08:45)
[2016-12-22] MEDS: SODIUM CHLORIDE 0.9% (FLUSH) 10 ML SYG IV SCH ×2 (08:46→20:48)
[2016-12-22] MEDS ORDERED: NON-FORMULARY MEDICATION 1 EA MIS (Umeclidinium-Vilanterol [Anoro Ellipta 62.5-25 Mcg/Inh] INH SCH (09:00)
[2016-12-22] MEDS: NITROGLYCERIN 0.1 MG/HR PATCH TD SCH (18:10)
[2016-12-22] MEDS: SIMVASTATIN 20 MG TAB PO SCH (20:48)
[2016-12-23] MEDS: REMOVE OLD PATCH TOP SCH (06:21)
[2016-12-23] MEDS: PANTOPRAZOLE SODIUM TAB 40 MG PO SCH (06:21)
[2016-12-23] MEDS: INSULIN LISPRO 100 UNITS/ML PEN SUBCU SCH ×4 (07:17→21:30)
[2016-12-23] MEDS ORDERED: SODIUM CHLORIDE 0.9% 250ML 0 ML ONE (08:04)
[2016-12-23] MEDS ORDERED: VANCOMYCIN HCL INJ 1,000 MG VIAL IVPB ONE ×2 (08:05→20:05)
[2016-12-23] MEDS: METOPROLOL TARTRATE 25 MG TAB PO SCH ×4 (08:21→21:01)
[2016-12-23] MEDS: FERROUS SULFATE 325 MG TAB PO SCH (08:21)
[2016-12-23] MEDS: glyBURIDE 5 MG TAB PO SCH (08:21)
[2016-12-23] MEDS: NON-FORMULARY MEDICATION 1 EA MIS (Umeclidinium-Vilanterol [Anoro Ellipta 62.5-25 Mcg/Inh] INH SCH (09:30)
[2016-12-23] MEDS: CYANOCOBALAMIN 1,000 MCG TAB PO SCH (10:47)
[2016-12-23] MEDS: DOCUSATE SODIUM 100 MG CAP PO SCH (10:47)
[2016-12-23] MEDS: RAMIPRIL 5 MG CAP PO SCH (10:47)
[2016-12-23] MEDS: CALCIUM CARBONATE-VITAMIN D 500 MG TAB PO SCH (10:47)
[2016-12-23] MEDS: BIFIDOBACTERIUM INFANTIS 4 MG CAP PO SCH ×2 (10:47→21:01)
[2016-12-23] MEDS: TAMSULOSIN 0.4 MG CAP PO SCH (10:47)
[2016-12-23] MEDS: SULFA/TRIMETH 800/160 (DS) TAB 1 EA TAB PO SCH ×2 (10:47→21:01)
[2016-12-23] MEDS: SODIUM CHLORIDE 0.9% (FLUSH) 10 ML SYG IV SCH ×2 (10:48→21:02)
[2016-12-23] MEDS ORDERED: VANCOMYCIN HCL INJ 500 MG VIAL ONE (20:04)
[2016-12-23] MEDS ORDERED: SODIUM CHL 0.9% 250ML (AVIVA) 250 ML IVPB ONE (20:05)
[2016-12-23] MEDS: NITROGLYCERIN 0.1 MG/HR PATCH TD SCH (20:42)
[2016-12-23] MEDS: SIMVASTATIN 20 MG TAB PO SCH (21:01)
[2016-12-23] MEDS: VANCOMYCIN HCL IVPB SCH (21:28)
[2016-12-23] MEDS: [UNRECOGNIZED DRUG - OTHER] IVPB SCH (21:28)
[2016-12-24] MEDS: PANTOPRAZOLE SODIUM TAB 40 MG PO SCH (06:23)
[2016-12-24] MEDS: glyBURIDE 5 MG TAB PO SCH (08:01)
[2016-12-24] MEDS: FERROUS SULFATE 325 MG TAB PO SCH (08:02)
[2016-12-24] MEDS: REMOVE OLD PATCH TOP SCH (08:02)
[2016-12-24] MEDS: INSULIN LISPRO 100 UNITS/ML PEN SUBCU SCH ×4 (08:05→21:16)
[2016-12-24] MEDS: NON-FORMULARY MEDICATION 1 EA MIS (Umeclidinium-Vilanterol [Anoro Ellipta 62.5-25 Mcg/Inh] INH SCH (08:26)
[2016-12-24] MEDS: TAMSULOSIN 0.4 MG CAP PO SCH (09:30)
[2016-12-24] MEDS: RAMIPRIL 5 MG CAP PO SCH (09:33)
[2016-12-24] MEDS: CYANOCOBALAMIN 1,000 MCG TAB PO SCH (09:33)
[2016-12-24] MEDS: SULFA/TRIMETH 800/160 (DS) TAB 1 EA TAB PO SCH ×2 (09:33→21:15)
[2016-12-24] MEDS: CALCIUM CARBONATE-VITAMIN D 500 MG TAB PO SCH (09:33)
[2016-12-24] MEDS: BIFIDOBACTERIUM INFANTIS 4 MG CAP PO SCH ×2 (09:33→21:14)
[2016-12-24] MEDS: DOCUSATE SODIUM 100 MG CAP PO SCH (09:33)
[2016-12-24] MEDS: METOPROLOL TARTRATE 25 MG TAB PO SCH (09:33)
[2016-12-24] MEDS: SODIUM CHLORIDE 0.9% (FLUSH) 10 ML SYG IV SCH ×2 (10:00→21:18)
--- NOTE | 2016-12-24 17:57 | PN ---
DATE: 12/24/16 SUPERVISING PHYSICIAN: Britton Miller M.D. SUBJECTIVE: The patient is doing well. He is progressing through his physical therapy and continues with wound care. He remains afebrile. He is progressing without any complications and continues to be on Bactrim and vancomycin. OBJECTIVE: Vital signs remain stable, although shows bradycardic rhythm at times. Current temperature is 98, pulse 88, blood pressure 110/64, respirations 18, O2 sat 96% on room air. I's and O's are fairly well balanced, weight 78.1 kg. CHEST: Lungs are clear to auscultation. HEART: Regular rate and rhythm. ABDOMEN: Soft, non-tender. Positive bowel sounds. Wound on the buttocks/perirectal area continues to show good improvement with daily dressing changes. EXTREMITIES: No clubbing, cyanosis or edema. NEUROLOGIC: He is alert and oriented times three. LABORATORY: Admission laboratory to [facility] showed white count 11.0, hemoglobin 9.4, hematocrit 28.4, platelet count 241,000. Differential showed to be within normal limits. Chemistries show normal electrolytes with potassium 4.0, BUN 22, creatinine 1.23, glucoses have been fairly well controlled from 76 to 157. Admission calcium was 9.0. Liver functions showed to be within normal limits. Urinalysis showed just a small amount of blood, other than that was within normal limits. He had 1 vancomycin trough on that was 22.3. MICROBIOLOGY: MRSA surveillance culture was no growth at 72 hours. RADIOLOGY: Chest x-ray on admission to [facility] per radiology interpretation noted peribronchial thickening with small left pleural effusion. ASSESSMENT: 1. Postoperative day 7 for acute perirectal abscess that required incision and drainage by Dr. Tim and ongoing parenteral antibiotics with final culture results from drainage showing Methicillin resistant Staphylococcus aureus with sensitivity pattern being sensitive to vancomycin and Bactrim with the patient having been on vancomycin since postoperative day 1 and continuing to need wound dressing twice daily and ongoing physical therapy thus requiring continued Swing Bed admission. 2. Recent history of non-ST segment elevation myocardial infarction without the patient having any chest pains during Acute Care or on admission to [facility] currently followed by Dr. Armendariz. 3. History of dementia. 4. Chronic anemia on oral therapy and requiring further followup in the outpatient setting. 5. Mild acute renal insufficiency on admission to Swing Bed, likely some mild dehydration showing some improvement after IV fluids on Acute Care. 6. Chronic diabetes mellitus on oral therapy, stable currently. 7. History of hypertension. 8. History of urinary retention with a history of prostate cancer requiring previous urinary bladder catheterizations for urinary retention on Acute Care with catheter removed prior to admission to Swing Bed with no current evidence of retention. 9. History of previous gastrointestinal bleeds with 1 positive guaiac on Acute Care showing a stable H&H prior to discharge and upon admission to Swing Bed. PLAN: Will continue to follow the patient closely as he progresses through his physical therapy and wound care management. Dr. Tim is available for wound management as needed. He is showing some aaron rhythms at times and has been on Metoprolol 25 mg twice daily, therefore I will try to decrease the dose a little bit to 25 mg extended release once daily and monitor closely. Will anticipate discharge once Physical Therapy feels the patient is strong and safe , and once the patient's wound has healed enough to require less dressing changes. Will need to keep a close eye on his number of days on antibiotic therapy as he has been on antibiotic therapy since postoperative day 1 and Bactrim, I believe, 2 days prior to discharge and admission to Swing Bed. Once the patient is discharged, he will need close clinical followup in the outpatient setting to further address his anemia and iron deficiency with Dr. Miller, his primary care provider. Until then, will continue to monitor the patient closely and treat appropriately. #[id number] [facility]
[2016-12-24] MEDS: IV SET AND CAP CHANGE INJ INJ SCH (18:21)
[2016-12-24] MEDS ORDERED: SODIUM CHL 0.9% 250ML (AVIVA) 250 ML IVPB ONE (19:58)
[2016-12-24] MEDS ORDERED: VANCOMYCIN HCL INJ 500 MG VIAL ONE (19:58)
[2016-12-24] MEDS ORDERED: VANCOMYCIN HCL INJ 1,000 MG VIAL IVPB ONE (19:59)
[2016-12-24] MEDS: SIMVASTATIN 20 MG TAB PO SCH (21:14)
[2016-12-24] MEDS: [UNRECOGNIZED DRUG - OTHER] IVPB SCH (21:16)
[2016-12-24] MEDS: VANCOMYCIN HCL IVPB SCH (21:16)
[2016-12-25] MEDS: INSULIN LISPRO 100 UNITS/ML PEN SUBCU SCH ×4 (07:30→21:18)
[2016-12-25] MEDS ORDERED: METOPROLOL SUCCINATE XL 25 MG TAB PO ONE (07:39)
[2016-12-25] MEDS: glyBURIDE 5 MG TAB PO SCH (08:02)
[2016-12-25] MEDS: FERROUS SULFATE 325 MG TAB PO SCH (08:02)
[2016-12-25] MEDS: PANTOPRAZOLE SODIUM TAB 40 MG PO SCH (08:02)
[2016-12-25] MEDS: REMOVE OLD PATCH TOP SCH (08:06)
[2016-12-25] MEDS: RAMIPRIL 5 MG CAP PO SCH (09:08)
[2016-12-25] MEDS: METOPROLOL SUCCINATE XL 25 MG TAB PO SCH (09:08)
[2016-12-25] MEDS: CALCIUM CARBONATE-VITAMIN D 500 MG TAB PO SCH (09:08)
[2016-12-25] MEDS: SULFA/TRIMETH 800/160 (DS) TAB 1 EA TAB PO SCH ×2 (09:08→21:11)
[2016-12-25] MEDS: SODIUM CHLORIDE 0.9% (FLUSH) 10 ML SYG IV SCH ×2 (09:09→21:11)
[2016-12-25] MEDS: TAMSULOSIN 0.4 MG CAP PO SCH (09:09)
[2016-12-25] MEDS: DOCUSATE SODIUM 100 MG CAP PO SCH (09:09)
[2016-12-25] MEDS: BIFIDOBACTERIUM INFANTIS 4 MG CAP PO SCH ×2 (09:09→21:11)
[2016-12-25] MEDS: CYANOCOBALAMIN 1,000 MCG TAB PO SCH (09:09)
[2016-12-25] MEDS: NON-FORMULARY MEDICATION 1 EA MIS (Umeclidinium-Vilanterol [Anoro Ellipta 62.5-25 Mcg/Inh] INH SCH (09:22)
[2016-12-25] MEDS: SIMVASTATIN 20 MG TAB PO SCH (21:11)
[2016-12-26] MEDS: PANTOPRAZOLE SODIUM TAB 40 MG PO SCH (06:05)
[2016-12-26] MEDS ORDERED: SODIUM CHLORIDE 0.9% 250ML 250 ML ONE (08:04)
[2016-12-26] MEDS ORDERED: VANCOMYCIN HCL INJ 1,000 MG VIAL IVPB ONE (08:06)
[2016-12-26] MEDS: FERROUS SULFATE 325 MG TAB PO SCH (08:14)
[2016-12-26] MEDS: INSULIN LISPRO 100 UNITS/ML PEN SUBCU SCH ×4 (08:14→21:42)
[2016-12-26] MEDS: glyBURIDE 5 MG TAB PO SCH (08:14)
[2016-12-26] MEDS: NON-FORMULARY MEDICATION 1 EA MIS (Umeclidinium-Vilanterol [Anoro Ellipta 62.5-25 Mcg/Inh] INH SCH (08:24)
[2016-12-26] MEDS ORDERED: VANCOMYCIN HCL INJ 1,000 MG in SODIUM CHLORIDE 0.9% 250ML 250 ML IVPB SCH (09:00)
[2016-12-26] MEDS: SULFA/TRIMETH 800/160 (DS) TAB 1 EA TAB PO SCH ×2 (09:33→21:21)
[2016-12-26] MEDS: METOPROLOL SUCCINATE XL 25 MG TAB PO SCH (09:33)
[2016-12-26] MEDS: CALCIUM CARBONATE-VITAMIN D 500 MG TAB PO SCH (09:33)
[2016-12-26] MEDS: DOCUSATE SODIUM 100 MG CAP PO SCH (09:33)
[2016-12-26] MEDS: BIFIDOBACTERIUM INFANTIS 4 MG CAP PO SCH ×2 (09:33→21:21)
[2016-12-26] MEDS: TAMSULOSIN 0.4 MG CAP PO SCH (09:33)
[2016-12-26] MEDS: CYANOCOBALAMIN 1,000 MCG TAB PO SCH (09:33)
[2016-12-26] MEDS: RAMIPRIL 5 MG CAP PO SCH (09:33)
[2016-12-26] MEDS: SODIUM CHLORIDE 0.9% (FLUSH) 10 ML SYG IV SCH ×2 (09:35→21:22)
--- NOTE | 2016-12-26 13:31 | PN ---
SUPERVISING PHYSICIAN: Michael Miller MD DATE: 12/26/16 SUBJECTIVE: The patient is sitting in his bed. He is eating his lunch. Dr. Tim is seeing the patient presently and the patient has no complaints at this time. OBJECTIVE: VITAL SIGNS: Afebrile. Pulse 80. Blood pressure 112/64. Respiratory rate 20. O2 saturation 96% on room air. LUNGS: Normal respiratory rate with no respiratory distress noted. SKIN: The wound on the buttocks/perirectal area continues to show improvement as per Dr. Tim. The area around the packed wound is much softer. He has daily dressing changes. EXTREMITIES: No cyanosis, clubbing or edema. NEUROLOGIC: Awake, alert and oriented times three. LABORATORY: There are presently no labs or films to report. ASSESSMENT: 1. Postoperative day 10for acute perirectal abscess that required incision and drainage by Dr. Tim and ongoing parenteral antibiotics with final culture results from drainage showing Methicillin resistant Staphylococcus aureus with sensitivity pattern being sensitive to vancomycin and Bactrim with the patient having been on vancomycin since postoperative day 1 and continuing to need wound dressing twice daily and ongoing physical therapy thus requiring continued Swing Bed admission. 2. Recent history of non-ST segment elevation myocardial infarction without the patient h aving any chest pains during Acute Care or on admission to Swing Bed currently followed by Dr. Armendariz. 3. History of dementia. 4. Chronic anemia on oral therapy and requiring further followup in the outpatient setting. 5. Mild acute renal insufficiency on admission to Swing Bed, likely some mild dehydration showing some improvement after IV fluids on Acute Care. 6. Chronic diabetes mellitus on oral therapy, stable currently. 7. History of hypertension. 8. History of urinary retention with a history of prostate cancer requiring previous urinary bladder catheterizations for urinary retention on Acute Care with catheter removed prior to admission to Swing Bed with no current evidence of retention. 9. History of previous gastrointestinal bleeds with 1 positive guaiac on Acute Care showing a stable H&H prior to discharge and upon admission to Swing Bed. PLAN: We will continue present supportive care and follow the patient with Dr. Tim as needed. His wound care will be per Dr. Tim. We will continue to plan for discharge and he will need daily dressing changes once he leaves the hospital. Dr. Tim and I discussed his antibiotic regimen and we will discontinue the vancomycin and continue him on Bactrim for at least 10 days and he has been on Bactrim for 5 days so far. Once the patient is discharged, he will need close clinical followup in the outpatient setting to further assess his anemia and iron deficiency with Dr. Miller. Until then, we will continue to monitor the patient closely and followup as needed. Dr. Miller is the collaborating physician and available for consultation. #[id number] [facility]
[2016-12-26] MEDS: SIMVASTATIN 20 MG TAB PO SCH (21:21)
[2016-12-27] MEDS: PANTOPRAZOLE SODIUM TAB 40 MG PO SCH (06:09)
[2016-12-27 06:54] VITALS: BP 118/62; TEMP 97.5
[2016-12-27] MEDS: INSULIN LISPRO 100 UNITS/ML PEN SUBCU SCH ×3 (08:00→17:29)
[2016-12-27] MEDS: glyBURIDE 5 MG TAB PO SCH (08:03)
[2016-12-27] MEDS: FERROUS SULFATE 325 MG TAB PO SCH (08:03)
[2016-12-27] MEDS: SULFA/TRIMETH 800/160 (DS) TAB 1 EA TAB PO SCH (09:31)
[2016-12-27] MEDS: SODIUM CHLORIDE 0.9% (FLUSH) 10 ML SYG IV SCH (09:31)
[2016-12-27] MEDS: RAMIPRIL 5 MG CAP PO SCH (09:31)
[2016-12-27] MEDS: METOPROLOL SUCCINATE XL 25 MG TAB PO SCH (09:31)
[2016-12-27] MEDS: CYANOCOBALAMIN 1,000 MCG TAB PO SCH (09:31)
[2016-12-27] MEDS: TAMSULOSIN 0.4 MG CAP PO SCH (09:31)
[2016-12-27] MEDS: CALCIUM CARBONATE-VITAMIN D 500 MG TAB PO SCH (09:31)
[2016-12-27] MEDS: DOCUSATE SODIUM 100 MG CAP PO SCH (09:31)
[2016-12-27] MEDS: NON-FORMULARY MEDICATION 1 EA MIS (Umeclidinium-Vilanterol [Anoro Ellipta 62.5-25 Mcg/Inh] INH SCH (09:32)
[2016-12-27] MEDS: BIFIDOBACTERIUM INFANTIS 4 MG CAP PO SCH (09:35)
[2016-12-27 09:36] VITALS: O2SAT 91
[2016-12-27] MEDS: IV SET AND CAP CHANGE INJ INJ SCH (17:30)
--- NOTE | 2017-01-01 08:31 | DS ---
SUPERVISING PHYSICIAN: Michael Miller MD DISCHARGE DIAGNOSIS: 1. Postoperative day 11 for acute perirectal abscess that required incision and drainage by Dr. Tim and ongoing parenteral antibiotics with final culture results from drainage showing Methicillin resistant Staphylococcus aureus with sensitivity pattern being sensitive to vancomycin and Bactrim with the patient having been on vancomycin since postoperative day 1 and continuing to need wound dressing twice daily and ongoing physical therapy thus requiring continued Swing Bed admission. 2. Recent history of non-ST segment elevation myocardial infarction without the patient having any chest pains during Acute Care or on admission to Swing Bed currently followed by Dr. Armendariz. 3. History of dementia. 4. Chronic anemia on oral therapy and requiring further followup in the outpatient setting. 5. Mild acute renal insufficiency on admission to Swing Bed, likely some mild dehydration showing some improvement after IV fluids on Acute Care. 6. Chronic diabetes mellitus on oral therapy, stable currently. 7. History of hypertension. 8. History of urinary retention with a history of prostate cancer requiring previous urinary bladder catheterizations for urinary retention on Acute Care with catheter removed prior to admission to Swing Bed with no current evidence of retention. 9. History of previous gastrointestinal bleeds with 1 positive guaiac on Acute Care showing a stable H&H prior to discharge and upon admission to Swing Bed. HISTORY OF PRESENT ILLNESS: This is an 81-year-old male patient who originally came into the hospital on 12/13/16 due to decreased mental status. He does have a history of some mild dementia and when he was brought to the Emergency Room, he had some acute mental status changes. He has had several falls previous to his first admission and on the night prior to his admission, he had gotten up and fallen into a laundry basket and stayed there for an unknown amount of time during a confused episode. He was brought to the Emergency Room. He had a white count of 14,000 with a left shift. He had an elevated troponin of 1.23 and an elevated creatinine kinase of 1585. He has a significant history of congestive heart failure as well as ischemic cardiomyopathy. His fruit distributor, Dr. Armendariz, was called from the Emergency Room and he felt that he needed no further workup and that he could be treated medically in our hospital. CT of the head showed generalized volume loss with some chronic ischemic changes. It was thought to be an early sepsis and there was found to be a large abscess on the left upper buttocks. He was brought to the hospital and given antibiotics. Dr. Tim was consulted and after Dr. Tim spoke to Dr. Armendariz, he was taken to surgery for a perirectal abscess I&D. Although he progressed slowly, he did get better over the next few days. Due to his extreme weakness and extended length of stay, he was placed in Swing Bed on 12/21/16. During his Swing Bed admission, he was followed by physical therapy for strengthening and conditioning as well as Dr. Tim for his perirectal abscess. He continued on his IV antibiotics of vancomycin as well as Bactrim. We also did extensive wound care during that time. In his Acute Care stay, his rhabdomyolysis and elevated CPK normalized. The wound has shown extensive granulation as well as excellent healing. At this point, he can be discharged home. DISCHARGE PLAN: The patient will be discharged home on good condition. He is to resume his previous diet. He has [facility] home health that will follow daily for wound cleaning and dressing. He has a followup with Dr. Miller on 01/01/17 at 11 AM as well as he needs to get a followup with Dr. Tim within the next 2 weeks. He is to followup with Dr. Miller or return to the hospital for any further problems regarding his wound or any other issues. DISCHARGE MEDICATIONS: 1. Ramipril. 2. Metoprolol. 3. Lovastatin. 4. Flomax. 5. Cyanocobalamin. 6. Prilosec. 7. Calcium with vitamin D. 8. Carbinol iron. 9. Anoro. 10. Align. 11. Glyburide. 12. Protonix. 13. Bactrim. Dr. Miller is the collaborating physician and available for consultation. #[id number] [facility]
== END 2016-12-27 17:45 | disposition home health service (06) | DRG 603 ==
LOC: MS 09:44
PROVIDERS: ADMIT Nurse Practitioner Family; ATTEND Nurse Practitioner Family
DX: L02.31 Cutaneous abscess of buttock (principal); R53.1 Weakness; N28.9 Disorder of kidney and ureter, unspecified; F03.90 Unspecified dementia, unspecified severity, without behavioral disturbance, psychotic disturbance, mood disturbance, and anxiety; N40.1 Benign prostatic hyperplasia with lower urinary tract symptoms; R33.9 Retention of urine, unspecified; D64.9 Anemia, unspecified; E11.9 Type 2 diabetes mellitus without complications; I11.0 Hypertensive heart disease with heart failure; B95.62 Methicillin resistant Staphylococcus aureus infection as the cause of diseases classified elsewhere; I50.9 Heart failure, unspecified; Z60.2 Problems related to living alone; I25.2 Old myocardial infarction; Z79.899 Other long term (current) drug therapy; Z85.46 Personal history of malignant neoplasm of prostate; Z87.891 Personal history of nicotine dependence; Z98.890 Other specified postprocedural states; Z79.84 Long term (current) use of oral hypoglycemic drugs; E86.0 Dehydration

== ENCOUNTER → 2017-01-01 | Outpatient (CLI) | payer MEDICARE | END | disposition home or self-care (01) | LOC: GMAM 14:09 | PROVIDERS: ATTEND Family Medicine | DX: D50.8 Other iron deficiency anemias (principal) ==

== ENCOUNTER → 2017-01-14 | Outpatient (CLI) | payer MEDICARE | END | disposition home or self-care (01) | LOC: GRHH 11:34 | PROVIDERS: ATTEND Family Medicine | DX: D64.9 Anemia, unspecified (principal); I10 Essential (primary) hypertension ==

== ENCOUNTER → 2017-01-15 | Outpatient (CLI) | payer MEDICARE | END | disposition home or self-care (01) | LOC: GMAM 15:09 | PROVIDERS: ATTEND Family Medicine | DX: R53.82 Chronic fatigue, unspecified (principal) ==

== ENCOUNTER → 2017-01-21 | Outpatient (CLI) | payer MEDICARE | LOC: GMAM 17:00 | PROVIDERS: ATTEND Family Medicine | DX: D50.0 Iron deficiency anemia secondary to blood loss (chronic) (principal); D50.8 Other iron deficiency anemias; D64.9 Anemia, unspecified; E53.8 Deficiency of other specified B group vitamins ==

== ENCOUNTER 2017-01-27 16:50 | Inpatient (IN) | payer MEDICARE ==
[2017-01-27] MEDS ORDERED: LEVALBUTEROL NEBS 1.25 MG/3 ML VIAL INH PRN (17:55)
[2017-01-27] MEDS ORDERED: SODIUM PHOS/BIPHOS ENEMA ADULT 133 ML BTTL PR PRN (17:55)
[2017-01-27] MEDS ORDERED: MAGNESIUM HYDROXIDE 30 ML UD PO PRN (17:55)
[2017-01-27] MEDS ORDERED: OMEPRAZOLE CAP 20 MG CAP ONE (20:00)
[2017-01-27] MEDS: TAMSULOSIN 0.4 MG CAP PO SCH (20:24)
[2017-01-27] MEDS: METOPROLOL TARTRATE 25 MG TAB PO SCH (20:24)
[2017-01-27] MEDS ORDERED: NON-FORMULARY MEDICATION 1 EA MIS (Omeprazole Magnesium [Prilosec Otc] 20 MG) PO SCH (21:00)
--- NOTE | 2017-01-27 21:09 | HP ---
HISTORY OF PRESENT ILLNESS: This 81 year-old white male is admitted to the Swing Bed status at the hospital because of progressive weakness persistent after recent discharge from [facility] in [place]. He was discharged from [place] yesterday on 01/26/17 after being there for a number of days with a diagnosis of GI bleed. He had an upper and lower endoscopy which did show a very small polyp which was excised, otherwise well controlled. His hemoglobin on discharge was up from 8.9 to 9.6. There is no mention as to whether any significant blood transfusions were given. The patient was seen in his home earlier today by home health who felt that he was too weak for them to provide safe rehabilitation and strengthening and they suggested he be admitted for Swing Bed rehabilitation to assist with getting him strong enough to safely return home. The patient is apparently at fall risk.. Appetite is fairly good. History of diabetes in the past. The patient sated that he did not notice any blood in his stool but he was referred by the GI clinic, Dr. Ennis, because his hemoglobin was in the 8 and he had some positive stool guaiacs. No blood was evident on endoscopy. The patient is willing to participate with rehabilitation to get stronger so he can return home where he lives with his . PAST MEDICAL HISTORY: 1. Some repetitive GI bleeds in the past, most recently about a year ago. 2. Prostate cancer with radiation seeds placed. 3. Diabetes mellitus type 2 on oral medications. 4. History of hypertension. 5. History of coronary artery disease being followed by Dr. Armendariz, business analytics analyst in [place]. 6. Recent perirectal abscess requiring incision and drainage by Dr. Tim performed about a month and a half ago and still requiring ongoing wound care. PAST SURGICAL HISTORY: 1. Appendectomy. 2. Radiation seed implants due to prostate cancer. 3. Incision and drainage of a large left buttock and perirectal abscess with MRSA about a month and a half ago. CURRENT MEDICATIONS: Please refer to nurses notes. ALLERGIES: NONE KNOWN. FAMILY HISTORY: Unremarkable. SOCIAL HISTORY: The patient has worked in the [employer] and stopped smoking about 35 years ago. He lives at home with his . REVIEW OF SYSTEMS: He has lost some fairly significant weight with him saying he weighed about 270 pounds about a year ago. No fever or chills. Vision and hearing appears to be good. LUNGS: Occasional shortness of breath upon exertion. CARDIOVASCULAR: No palpitations or chest pains but he has had a history of a heart attack in the past. Appetite is fairly good. EXTREMITIES: No significant edema but feels very weak. NEUROLOGICAL: No syncope, no significant headaches but he feels extremely weak and a potential fall risk. PHYSICAL EXAMINATION: VITAL SIGNS: Afebrile. Pulse 80, blood pressure 118/62, pulse oximetry 92% on room air. His weight is 77 kilos. GENERAL: The patient is fairly awake, his appetite is a little improved. He is able to answer questions though still does not have the best memory of a lot of his past history. CHEST: Lungs are generally clear. CARDIOVASCULAR: Heart tones have a prominent systolic ejection murmur. ABDOMEN: Soft, slightly distended no organomegaly evident. EXTREMITIES: Fairly well formed. Buttock on the left especially healing with an open incision and drainage wound with cleansing and dressing to be continued. NEUROLOGIC: No focal neurological deficits but noticeably weak with the patient complaining of extreme weakness and is willing to participate in rehabilitation to get stronger before safely returning home. LABORATORY: Pending. ASSESSMENT: 1. Recent acute GI bleed, having upper and lower endoscopy with a small polyp removed with no clinical evidence of bleeding other than stool guaiac positive and anemia. 2. Anemia, probably secondary to GI bleed, currently on vitamins and iron supplementation and close observation. 3. Chronic constipation. 4. Cardiac murmur. 5. Weight loss noted. 6. History of diabetes mellitus type 2 on oral therapy. 7. Large left buttock incision for deep abscess with MRSA approximately 1 1/2 months ago, showing some steady improvement and granulation tissue formation. PLAN: Continue with Swing Bed until safe to be able to return home. Refer to orders. Observe diabetes. Close followup necessary. SCD to assist with DVT prophylaxis. Hold anticoagulants at this time because of the recent acute GI bleed. #[id number] [facility]
[2017-01-28] MEDS ORDERED: OMEPRAZOLE CAP 20 MG CAP ONE (07:27)
[2017-01-28] MEDS ORDERED: CYANOCOBALAMIN 1,000 MCG TAB ONE (07:27)
[2017-01-28] MEDS: DOCUSATE SODIUM 100 MG CAP PO SCH (08:21)
[2017-01-28] MEDS: METOPROLOL TARTRATE 25 MG TAB PO SCH ×2 (08:21→17:58)
[2017-01-28] MEDS: RAMIPRIL 5 MG CAP PO SCH (08:22)
[2017-01-28] MEDS: FERROUS SULFATE 325 MG TAB PO SCH (08:22)
[2017-01-28] MEDS: glyBURIDE 5 MG TAB PO SCH (08:22)
[2017-01-28] MEDS: CYANOCOBALAMIN 1,000 MCG TAB PO SCH (08:25)
[2017-01-28] MEDS: OMEPRAZOLE CAP 20 MG CAP PO SCH ×2 (08:25→17:58)
--- NOTE | 2017-01-28 13:55 | PN ---
DATE: 01/28/17 SUBJECTIVE: The patient is sitting up in the chair and finishing a meal which he tolerated quite well. He did have an incident when he was having a shower where he partially slipped off the shower chair and may have injured a region of his low back which will require further followup. He was ambulated for a short period of time today with therapist returning for additional throughout and strengthening this afternoon. OBJECTIVE: LUNGS: Clear. HEART: Regular. LABORATORY: Laboratory studies performed last evening on his admission from [place] showed his hemoglobin is up from the mid-9s to 10.7, showing an improvement. BUN 26, creatinine 1.44, potassium 3.9, glucose 143, hemoglobin A1c 6.1, calcium elevated at 11.4, albumin 3. Urinalysis showed some hematuria as well as glycosuria and proteinuria. No cultures obtained. ASSESSMENT: 1. Recent acute GI hemorrhage having upper and lower endoscopy with a small polyp removed at [place] with history of stool guaiac positive and anemia, recently discharged from [facility] a couple of days ago. 2. Anemia, probably secondary to the recent gastrointestinal bleed, currently on vitamins and iron supplementation and continued observation and showing improvement in the hemoglobin. 3. Significant weakness which precluded him being able to adequately receive therapy as an outpatient through home health, requiring Swing Bed status admission to assist in his ongoing strengthening and rehabilitation program. 4. Chronic constipation. 5. Cardiac murmur. 6. Weight loss evident. 7. Diabetes mellitus, type 2, on oral therapy. 8. Recent large left buttock incision because of a deep abscess with methicillin-resistant Staphylococcus aureus approximately six weeks ago, performed by Dr. Tim and showing steady improvement in granulation tissue formation. PLAN: Continue with wound care. Dr. Tim will be made aware of the fact that the patient is in his room and he will be able to come by and follow up with it to compare with the initial treatment course. Continue rehabilitation and strengthening at home when safe to return home. #[id number] [facility]
[2017-01-28] MEDS: ACETAMINOPHEN 500 MG TAB PO PRN (20:28)
[2017-01-28] MEDS: TAMSULOSIN 0.4 MG CAP PO SCH (20:28)
[2017-01-29] MEDS: OMEPRAZOLE CAP 20 MG CAP PO SCH ×2 (06:01→15:42)
[2017-01-29] MEDS: glyBURIDE 5 MG TAB PO SCH (08:17)
[2017-01-29] MEDS: FERROUS SULFATE 325 MG TAB PO SCH (08:17)
[2017-01-29] MEDS: METOPROLOL TARTRATE 25 MG TAB PO SCH ×2 (08:18→15:42)
[2017-01-29] MEDS: CYANOCOBALAMIN 1,000 MCG TAB PO SCH (08:35)
[2017-01-29] MEDS: DOCUSATE SODIUM 100 MG CAP PO SCH (08:35)
[2017-01-29] MEDS: RAMIPRIL 5 MG CAP PO SCH (08:35)
[2017-01-29] MEDS: NON-FORMULARY MEDICATION 1 EA MIS (Umeclidinium-Vilanterol [Anoro Ellipta 62.5-25 Mcg/Inh] INH SCH (09:40)
[2017-01-29] MEDS: CHLORHEXIDINE GLUCONATE 4 % 15 ML UD TOP SCH (14:25)
[2017-01-29] MEDS: ACETAMINOPHEN 500 MG TAB PO PRN (16:11)
[2017-01-29] MEDS: TAMSULOSIN 0.4 MG CAP PO SCH (20:55)
[2017-01-30] MEDS: OMEPRAZOLE CAP 20 MG CAP PO SCH ×2 (06:26→16:57)
[2017-01-30] MEDS: METOPROLOL TARTRATE 25 MG TAB PO SCH ×2 (07:32→16:57)
[2017-01-30] MEDS: FERROUS SULFATE 325 MG TAB PO SCH (07:32)
[2017-01-30] MEDS: glyBURIDE 5 MG TAB PO SCH (07:32)
[2017-01-30] MEDS: NON-FORMULARY MEDICATION 1 EA MIS (Umeclidinium-Vilanterol [Anoro Ellipta 62.5-25 Mcg/Inh] INH SCH ×3 (08:38→10:04)
[2017-01-30] MEDS: DOCUSATE SODIUM 100 MG CAP PO SCH (08:41)
[2017-01-30] MEDS: CYANOCOBALAMIN 1,000 MCG TAB PO SCH (08:41)
[2017-01-30] MEDS: CHLORHEXIDINE GLUCONATE 4 % 15 ML UD TOP SCH (08:42)
[2017-01-30] MEDS: RAMIPRIL 5 MG CAP PO SCH (08:47)
[2017-01-30] MEDS: TAMSULOSIN 0.4 MG CAP PO SCH (20:16)
--- NOTE | 2017-01-30 20:57 | PCM.CORE ---
Physician DVT/VTE - Prophylaxis Currently: Patient already on anticoagulation therapy - xarelto - Nurse DVT Assessment & Total Each Risk Factor Represents 3 Points: Age over 75 years, Medical PT with Hx of SC, CHF, Severe infection/sepsis Each Risk Factor Represents 1 Point: Medical PT at Bed Rest DVT Assessment Score: 7 - 5 or more Very High Risk Treatments: Early Ambulation *, Sequential Compression Device
[2017-01-30] MEDS: ENOXAPARIN SODIUM 40 MG/0.4 ML SYG SUBCU SCH (22:00)
[2017-01-31] MEDS: OMEPRAZOLE CAP 20 MG CAP PO SCH ×2 (06:17→16:43)
[2017-01-31] MEDS: NON-FORMULARY MEDICATION 1 EA MIS (Umeclidinium-Vilanterol [Anoro Ellipta 62.5-25 Mcg/Inh] INH SCH (09:25)
[2017-01-31] MEDS: glyBURIDE 5 MG TAB PO SCH (09:40)
[2017-01-31] MEDS: RAMIPRIL 5 MG CAP PO SCH (09:40)
[2017-01-31] MEDS: FERROUS SULFATE 325 MG TAB PO SCH (09:42)
[2017-01-31] MEDS: DOCUSATE SODIUM 100 MG CAP PO SCH (09:42)
[2017-01-31] MEDS: CYANOCOBALAMIN 1,000 MCG TAB PO SCH (09:42)
[2017-01-31] MEDS: METOPROLOL TARTRATE 25 MG TAB PO SCH ×2 (09:43→16:43)
[2017-01-31] MEDS: CHLORHEXIDINE GLUCONATE 4 % 15 ML UD TOP SCH (09:44)
--- NOTE | 2017-01-31 12:38 | CT ---
EXAM DESCRIPTION: Thoracic Spine CLINICAL HISTORY: 81 years Male, back pain s/p fall COMPARISON: None. TECHNIQUE: Noncontrast CT of the thoracic spine with MPR reformatted images. This exam was performed according to our departmental dose-optimization program, which includes automated exposure control, adjustment of the mA and/or kV according to patient size and/or use of iterative reconstruction technique. FINDINGS: The bony spine is severely osteopenic and normally aligned. A subtle irregularity and cupping of the superior endplate of T2 is present with very slight irregularity of the posterior cortex suggesting a minimal impaction fracture, age indeterminate but possibly acute. 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 Additional acute compression deformities are not apparent. The superior endplate of T10 anteriorly on the right appears to be focally impacted at its anterolateral aspect without any significant loss of vertebral height. Age of this deformity is indeterminate. Atelectatic and inflammatory changes in the posterior lung bases, particularly on the left possibly representing an element of pneumonitis is noted. Bony spinal canal in the thoracic spine is adequate and no significant scoliosis is present. Hypertrophic spurring laterally on the right more than the left is noted on coronal imaging. IMPRESSION: 1. Severe osteopenia with normal alignment of the spine and no compromise of the bony spinal canal throughout its course. 2. Very slight cupping and impaction of the superior endplate of T2 consistent with a very mild compression deformity, age indeterminate. 3. The superior endplate of T10 on the right side is asymmetric in appearance with what appears to be modest but focal impaction of the right anterior aspect of the T10 vertebral superior endplate but without loss of vertebral height. Again this is age indeterminate but likely represents a previous compression deformity. Electronically signed by: Britton Scott MD 01/31/2017 12:37 PM CDT
--- NOTE | 2017-01-31 12:52 | CT ---
EXAM DESCRIPTION: Lumbar Spine CLINICAL HISTORY: 81 years, Male, back pain s/p fall COMPARISON: None. FINDINGS: Axial scans. Reformatted images. This examination was performed according to our departmental dose optimization program, which includes automatic exposure control, adjustment of the MA and/or kV according to the patient size and/or use of iterative reconstruction technique. Some motion artifact. No fracture lumbar spine. Normal vertebral body height except minimal compressive changes of several superior endplates, chronic in appearance, probably osteopenia. Bulky hypertrophic changes of the thoracolumbar junction. Similar less advanced hypertrophic changes lumbar spine particularly L2-3 and L4-5. This is probably idiopathic hyperostosis. Vacuum disc present L1-2 with mild facet degenerative change. Narrowing L2-3 with bulging disc osteophyte slightly asymmetric to the left. Facet degenerative change. At L3-4 narrowing and bulging disc with facet degenerative change. There may be mild central stenosis at this level. Narrowing L4-5 with diffuse bulging disc osteophyte and facet degenerative change. Bulging disc osteophyte extensive the exit foramen bilaterally more on the right with foraminal narrowing And probable impingement on the exiting right L4 root. L5-S1 narrowing with bulging disc osteophyte asymmetric to right. Impression on the right-sided thecal sac and narrowing the exit foramen. Patient noted to have bilateral nonobstructing kidney stones largest lower pole right about 1 cm. Atherosclerotic change lower abdominal aorta with maximum diameter infrarenal about 1.8 cm. IMPRESSION: 1. No acute bony injury. 2. Extensive hypertrophic changes lower thoracic spine and much of lumbar spine, probably idiopathic hyperostosis 3. Moderate disc disease particularly lower lumbar spine at L4-5 and L5-S1. Probable impingement exiting right L4 root. Bulging disc osteophyte at L5-S1 presses on right thecal sac. Other disc findings as discussed above. 4. Bilateral nonobstructing kidney stones. Atherosclerotic changes lower abdominal aorta without aneurysm visualized portion Electronically signed by: Frank Odonnell MD 01/31/2017 12:51 PM CDT
[2017-01-31] MEDS: ACETAMINOPHEN 500 MG TAB PO PRN ×2 (14:05→22:15)
[2017-01-31] MEDS: TAMSULOSIN 0.4 MG CAP PO SCH (20:23)
[2017-01-31] MEDS: ENOXAPARIN SODIUM 40 MG/0.4 ML SYG SUBCU SCH (20:23)
--- NOTE | 2017-01-31 20:34 | PN ---
DATE: 01/31/17 SUPERVISING PHYSICIAN: Britton Miller M.D. SUBJECTIVE: The patient has been having some pain in his back which is decreasing his ability to function in the rehab setting, although he does have fairly well controlled pain at times. We are planning on getting a CT of the thoracic and lumbar spine. OBJECTIVE: VITAL SIGNS: Remain stable, pulse 77, temperature 98.4, blood pressure 110/66, respirations 20, satting 95% on room air. I's and O's show to be fairly well balanced with a weight of 73.7 kg. CHEST: Lungs are clear to auscultation bilaterally. HEART: Regular rate and rhythm. ABDOMEN: Soft, non- tender. Positive bowel sounds. EXTREMITIES: No clubbing, cyanosis or edema. NEUROLOGIC: He is alert and oriented times three. LABORATORY: No additional laboratory reports are available since admission to Swing Bed. MICROBIOLOGY: MRSA surveillance culture showed no growth at 72 hours. RADIOLOGY: He had a thoracic and lumbar spine completed today showing no acute findings. ASSESSMENT: 1. History of recent gastrointestinal hemorrhage having an upper and lower endoscopy with a small polyp being removed at [place] with a history of stool guaiacs being positive and anemia having been recently discharged from [facility] 2 days prior to admission, having been admitted from home through home health for continued physical therapy and reconditioning. 2. Anemia, probably secondary to the recent gastrointestinal bleed, currently on vitamins and iron supplementation and showing improvement in hemoglobin on admission. 3. Significant weakness which precluded him being able to adequately receive therapy as an outpatient through home health, requiring Swing Bed status admission to assist in his ongoing strengthening and rehabilitation program. 4. Chronic constipation. 5. Cardiac murmur. 6. Weight loss, acute. 7. Diabetes mellitus, type 2, on oral therapy. 8. Recent large left buttock incision due to a deep abscess with methicillin-resistant Staphylococcus aureus approximately six weeks previous to this admission as performed by Dr. Tim showing steady improvement in granulation tissue formation. PLAN: Will continue with wound care. Dr. Tim is aware the patient will be able to followup as needed. He will continue with his rehabilitation, strengthening and reconditioning until he has met his goals to return home safely. His back shows no acute findings and the patient was informed of this, and will work with him on pain control so he can continue with his rehab and physical therapy. Until discharge, will continue to monitor the patient closely and treat appropriately. #[id number] [facility]
[2017-02-01] MEDS: OMEPRAZOLE CAP 20 MG CAP PO SCH ×2 (06:02→17:58)
[2017-02-01] MEDS: METOPROLOL TARTRATE 25 MG TAB PO SCH ×2 (07:58→17:58)
[2017-02-01] MEDS: glyBURIDE 5 MG TAB PO SCH (07:58)
[2017-02-01] MEDS: FERROUS SULFATE 325 MG TAB PO SCH (07:58)
[2017-02-01] MEDS: NON-FORMULARY MEDICATION 1 EA MIS (Umeclidinium-Vilanterol [Anoro Ellipta 62.5-25 Mcg/Inh] INH SCH (09:25)
[2017-02-01] MEDS: RAMIPRIL 5 MG CAP PO SCH (09:35)
[2017-02-01] MEDS: DOCUSATE SODIUM 100 MG CAP PO SCH (09:35)
[2017-02-01] MEDS: CYANOCOBALAMIN 1,000 MCG TAB PO SCH (09:35)
[2017-02-01] MEDS: CHLORHEXIDINE GLUCONATE 4 % 15 ML UD TOP SCH (09:37)
[2017-02-01] MEDS: HYDROcodone 5MG/APAP 325MG 1 EA TAB PO PRN (13:20)
[2017-02-01] MEDS: TAMSULOSIN 0.4 MG CAP PO SCH (20:31)
[2017-02-01] MEDS: ENOXAPARIN SODIUM 40 MG/0.4 ML SYG SUBCU SCH (20:31)
[2017-02-02] MEDS: OMEPRAZOLE CAP 20 MG CAP PO SCH ×2 (06:26→16:41)
[2017-02-02] MEDS: NON-FORMULARY MEDICATION 1 EA MIS (Umeclidinium-Vilanterol [Anoro Ellipta 62.5-25 Mcg/Inh] INH SCH (07:45)
[2017-02-02] MEDS: METOPROLOL TARTRATE 25 MG TAB PO SCH ×2 (08:06→16:41)
[2017-02-02] MEDS: FERROUS SULFATE 325 MG TAB PO SCH (08:06)
[2017-02-02] MEDS: HYDROcodone 5MG/APAP 325MG 1 EA TAB PO PRN (08:06)
[2017-02-02] MEDS: glyBURIDE 5 MG TAB PO SCH (08:07)
[2017-02-02] MEDS: DOCUSATE SODIUM 100 MG CAP PO SCH (09:10)
[2017-02-02] MEDS: CHLORHEXIDINE GLUCONATE 4 % 15 ML UD TOP SCH (09:10)
[2017-02-02] MEDS: CYANOCOBALAMIN 1,000 MCG TAB PO SCH (09:10)
[2017-02-02] MEDS: RAMIPRIL 5 MG CAP PO SCH (09:10)
[2017-02-02] MEDS: TAMSULOSIN 0.4 MG CAP PO SCH (20:59)
[2017-02-02] MEDS: ENOXAPARIN SODIUM 40 MG/0.4 ML SYG SUBCU SCH (20:59)
[2017-02-02 22:26] VITALS: BP 115/61; TEMP 97
[2017-02-03] MEDS: HYDROcodone 5MG/APAP 325MG 1 EA TAB PO PRN (06:41)
[2017-02-03] MEDS: OMEPRAZOLE CAP 20 MG CAP PO SCH (06:41)
[2017-02-03] MEDS: FERROUS SULFATE 325 MG TAB PO SCH (07:52)
[2017-02-03] MEDS: METOPROLOL TARTRATE 25 MG TAB PO SCH (07:52)
[2017-02-03] MEDS: glyBURIDE 5 MG TAB PO SCH (07:52)
[2017-02-03] MEDS: NON-FORMULARY MEDICATION 1 EA MIS (Umeclidinium-Vilanterol [Anoro Ellipta 62.5-25 Mcg/Inh] INH SCH (08:54)
[2017-02-03] MEDS ORDERED: MEGESTROL ACETATE SUSP 400 MG/10 ML UD PO SCH (09:00)
[2017-02-03 09:08] VITALS: O2SAT 95
[2017-02-03] MEDS: DOCUSATE SODIUM 100 MG CAP PO SCH (09:19)
[2017-02-03] MEDS: CYANOCOBALAMIN 1,000 MCG TAB PO SCH (09:19)
[2017-02-03] MEDS ORDERED: MEGESTROL ACETATE SUSP 400 MG/10 ML UD ONE (09:20)
[2017-02-03] MEDS: CHLORHEXIDINE GLUCONATE 4 % 15 ML UD TOP SCH (09:21)
[2017-02-03] MEDS: RAMIPRIL 5 MG CAP PO SCH (09:21)
[2017-02-03] MEDS ORDERED: SODIUM CHLORIDE 0.9% 1000ML 1,000 ML IVS ONE (09:43)
[2017-02-03] MEDS ORDERED: SODIUM CHLORIDE 0.9% 1000ML 1,000 ML ONE (09:57)
--- NOTE | 2017-02-05 15:42 | DS ---
SUPERVISING PHYSICIAN: Britton Miller M.D. DISCHARGE DIAGNOSIS: 1. Severe hypercalcemia secondary to severe dehydration with the patient having poor oral intake while on Swing Bed. 2. Recent gastrointestinal hemorrhage having an upper and lower endoscopy with a small polyp being removed at [place] with a history of stool guaiacs being positive and anemia having recently discharged from [facility] 2 days prior to his admission to Swing Bed having been admitted from home through home health for continued physical therapy and ongoing reconditioning. 3. Anemia probably secondary to recent gastroesophageal bleed currently on Vitamins and iron supplements showing improvement in hemoglobin on admission and shown to be stable. 4. Significant weakness secondary to ongoing hypercalcemia exacerbated by severe dehydration during Swing Bed admission requiring admission to acute care for IV fluids and management of hypercalcemia. 5. Chronic constipation. 6. Cardiac murmur, systolic, chronic. 7. Acute weight loss. 8. Diabetes mellitus type 2 on oral therapy. 9. Large left buttock incision due to a deep abscess with Methicillin resistant Staphylococcus aureus approximately 6 weeks previous to this admission having an incision and drainage performed by Dr. Tim showing improvement in granulation tissue formation. HISTORY OF PRESENT ILLNESS: Mr. Brandon is an 81 year-old male patient that was admitted to Swing Bed status at the hospital due to progressive weakness persistent after recent discharge from [facility] in [place]. He was discharged from [facility] on 01/26/17 after being there for numerous days with a diagnosis of GI bleed. He had an upper and lower endoscopy which did show a very small polyp which was excised. Otherwise well controlled. Hemoglobin on discharge was up to 8.9 to 9.6. There was no mention as to whether any significant blood transfusions were given. The patient was seen at home on the same day of admission on 01/27 to Swing Bed by [facility] who felt that the patient was too weak to provide any safe rehabilitation and strengthening after which they suggested the patient be admitted to Swing Bed for continued rehabilitation to assist him to get him strong enough to return home. The patient is a very high fall risk. His appetite was poor. He does have a history of diabetes in the past. The patient stated he did not notice any blood in his stools and was referred by Kim and Dr. Ennis because his hemoglobin was 8 and he had some positive stool guaiacs. No blood was evidenced on endoscopy. The patient was willing to be admitted to Swing Bed for rehabilitation to get stronger so he could return home where his lives safely. The patient slowly progressed through Swing Bed and slowly showed some deterioration in his physiological status. On admission date of 02/03 today on Swing Bed rounds, it was noted that the patient was very sleepy and had not been participating with his physical therapy as well as had not been been eating. The family was concerned that the patient was not himself. Laboratory studies at that point were completed and showed the patient to have a significant hypercalcemia with calcium of 13 which corrected for a low albumin of 3.0, it was 13.9. Otherwise liver functions were within normal limits as well as his electrolytes. It was noted that his renal function has shown some worsening with BUN being 49 and creatinine being 1.98. He does have a history of recently being seen in the outpatient setting with concerns for an elevated total protein with electrophoresis pending. He was supposed to have an appointment today to see Dr. Torres in regards to all of those findings. It was felt that the patient's calcium was high enough to warrant admission to Acute Care again for further treatment for severe dehydration and further treatment of his hypercalcemia. The patient was admitted to Acute Care on 02/03/17 in stable condition. LABORATORY: CBC on admission showed white count of 8.7, hemoglobin 10.4, hematocrit 30.8. RBC indices show a macrocytic hyperchromic presentation with a platelet count of 183,000. Differential shows to be within normal limits. Chemistries show normal electrolytes with BUN of 49, creatinine 1.98, calcium 13 with a corrected calcium for albumin of 3.0 showed to be 13.9 approximately. Serum total protein was elevated at 9.9 with albumin to globulin ratio of 6.9. Urinalysis is pending. RADIOLOGY: Chest x-ray is pending. PLAN: Given the patient's clinical presentation and laboratory studies to include severely elevated calcium levels, the patient will be discharged from Swing Bed and admitted to Acute Care for further management. Prior to discharge , she was given 1 liter of fluids. This will be continued for an additional 2 to 3 liters and then maintenance fluid to be determined based off current repeat of BMP. I plan to repeat a BMP 4 hours after admission to acute care and monitor calcium levels closely. There is concern that once the patient is no longer hemoconcentrated, he probably will be anemic and will monitor this closely with a repeat CBC in the morning. Dr. Miller did discuss the case with Dr. Torres who he actually had an appointment with today, but due to his transfer to Acute Care was unable to attend. Dr. Torres has a concern that he may have multiple myeloma, therefore she recommended additional testing to include quantitative hemoglobins, beta microglobulins and kappa and lambda free light chains. She also recommended that we start him on Dexamethasone 40 mg IV daily for 4 days with today being day 1, as well as start him on Xeloda, bromic acid, Reclast 4 mg IV times 1 dose and to provide him with PPI coverage given the extreme high doses of Dexamethasone for the next 4 days. He will need close monitoring in regards to his blood sugar and he will be on sliding scale as appropriate. #[id number] [facility]
== END 2017-02-03 10:04 | disposition short-term general hospital (02) | DRG 948 ==
LOC: MS 16:50
PROVIDERS: ADMIT Emergency Medicine; ATTEND Nurse Practitioner Family
DX: R53.1 Weakness (principal); E83.52 Hypercalcemia; E86.0 Dehydration; D50.0 Iron deficiency anemia secondary to blood loss (chronic); M54.9 Dorsalgia, unspecified; E11.9 Type 2 diabetes mellitus without complications; R01.1 Cardiac murmur, unspecified; I10 Essential (primary) hypertension; I25.10 Atherosclerotic heart disease of native coronary artery without angina pectoris; R63.4 Abnormal weight loss; K59.09 Other constipation; Z91.81 History of falling; Z85.46 Personal history of malignant neoplasm of prostate; Z79.84 Long term (current) use of oral hypoglycemic drugs; Z86.14 Personal history of Methicillin resistant Staphylococcus aureus infection; Z87.891 Personal history of nicotine dependence; W07.XXXA Fall from chair, initial encounter; Y93.E1 Activity, personal bathing and showering; Y92.231 Patient bathroom in hospital as the place of occurrence of the external cause; Y99.8 Other external cause status

== ENCOUNTER 2017-02-03 10:05 | Inpatient (IN) | payer MEDICARE ==
--- NOTE | 2017-02-03 10:35 | HP ---
SUPERVISING PHYSICIAN: Britton Miller M.D. DISCHARGED FROM SWING BED: 02/03/17 ADMITTED TO ACUTE CARE: 02/03/17 REASON FOR ADMISSION/CHIEF COMPLAINT: Weakness, dehydration and hypercalcemia. HISTORY OF PRESENT ILLNESS: Mr. Brandon is an 81 year-old male patient that was admitted to Swing Bed status at the hospital due to progressive weakness persistent after recent discharge from [facility] in [place]. He was discharged from [facility] on 01/26/17 after being there for numerous days with a diagnosis of GI bleed. He had an upper and lower endoscopy which did show a very small polyp which was excised. Otherwise well controlled. Hemoglobin on discharge was up to 8.9 to 9.6. There was no mention as to whether any significant blood transfusions were given. The patient was seen at home on the same day of admission on 01/27 to [facility] by home health who felt that the patient was too weak to provide any safe rehabilitation and strengthening after which they suggested the patient be admitted to Swing Bed for continued rehabilitation to assist him to get him strong enough to return home. The patient is a very high fall risk. His appetite was poor. He does have a history of diabetes in the past. The patient stated he did not notice any blood in his stools and was referred by Kim and Dr. Ennis because his hemoglobin was 8 and he had some positive stool guaiacs. No blood was evidenced on endoscopy. The patient was willing to be admitted to Swing Bed for rehabilitation to get stronger so he could return home where his lives safely. The patient slowly progressed through Swing Bed and slowly showed some deterioration in his physiological status. On admission date of 02/03 today on Swing Bed rounds, it was noted that the patient was very sleepy and had not been participating with his physical therapy as well as had not been been eating. The family was concerned that the patient was not himself. Laboratory studies at that point were completed and showed the patient to have a significant hypercalcemia with calcium of 13 which corrected for a low albumin of 3.0, it was 13.9. Otherwise liver functions were within normal limits as well as his electrolytes. It was noted that his renal function has shown some worsening with BUN being 49 and creatinine being 1.98. He does have a history of recently being seen in the outpatient setting with concerns for an elevated total protein with electrophoresis pending. He was supposed to have an appointment today to see Dr. Torres in regards to all of those findings. It was felt that the patient's calcium was high enough to warrant admission to Acute Care again for further treatment for severe dehydration and further treatment of his hypercalcemia. The patient was admitted to Acute Care on 02/03/17 in stable condition. PAST MEDICAL HISTORY: 1. History of repeated GI bleeds in the past, most recently within the last year. 2. Prostate cancer with radiation seeds placed. 3. Diabetes mellitus type 2 on oral medications. 4. History of hypertension. 5. History of coronary artery disease having been followed by Dr. Armendariz, home office representative in [place]. 6. Recent perirectal abscess requiring incision and drainage by Dr. Tim performed approximately a month and a half ago with ongoing wound care. PAST SURGICAL HISTORY: 1. Appendectomy. 2. Radiation seed implant due to prostate cancer. 3. Incision and drainage of a large left buttock and perirectal abscess with MRSA about a month previous to this admission. CURRENT MEDICATIONS: Please refer to nurses' notes for updated list in the electronic medical records of updated medications. ALLERGIES: NO KNOWN DRUG ALLERGIES. FAMILY HISTORY: Unremarkable. SOCIAL HISTORY: The patient has worked in [place] [employer] in the past. He had stopped smoking approximately 35 years previously. He lives at home with his . He denies any illicit drug use or alcohol use. REVIEW OF SYSTEMS: CONSTITUTIONAL: He has noted he has had a significant weight loss. At one point he weighed 270 pounds in the last year. He has also noted he had some slowly worsening general malaise with decreasing physiologic reserve. HEENT: Denied any vision or hearing changes. LUNGS: Has history of occasional shortness of breath with exertion. CARDIOVASCULAR: No palpitations or chest pains or significant edema, but does note he feels weak. NEUROLOGIC: No recent syncopal episodes or any headaches, but he feels extremely weak and is certainly a potential fall risk. PHYSICAL EXAMINATION: VITAL SIGNS: Temperature 97.0, blood pressure 115/61, respirations 20, pulse 79 , satting 96% on room air. Admission weight is 77.0 kg. GENERAL: He is asleep and appears to be in no distress. He is easily awakened and answers questions. HEENT: Tympanic membranes are clear bilaterally. Oropharynx is notably dry and cracked with dentures in place. CHEST: Lungs are clear bilaterally. CARDIOVASCULAR: Regular rate and rhythm with a very prominent systolic ejection murmur. ABDOMEN: Soft, non-tender. Positive bowel sounds. EXTREMITIES: Left buttocks shows healing of an open incision and drainage of a wound with cleansing having been continued with no obvious clubbing or cyanosis to the lower extremities. NEUROLOGIC: Cranial nerves II-XII appear to be grossly intact. Facial features are symmetrical. Extraocular movements are within normal limits. There are no focal or neurological deficits noted, but the patient is significantly weak compared to admission warranting an admission to Swing Bed for continued ongoing strengthening. LABORATORY: CBC on admission showed white count of 8.7, hemoglobin 10.4, hematocrit 30.8. RBC indices show a macrocytic hyperchromic presentation with a platelet count of 183,000. Differential shows to be within normal limits. Chemistries show normal electrolytes with BUN of 49, creatinine 1.98, calcium 13 with a corrected calcium for albumin of 3.0 showed to be 13.9 approximately. Serum total protein was elevated at 9.9 with albumin to globulin ratio of 6.9. Urinalysis is pending. RADIOLOGY: Chest x-ray is pending. ASSESSMENT: 1. Severe hypercalcemia secondary to severe dehydration with the patient having poor oral intake while on Swing Bed. 2. Recent gastrointestinal hemorrhage having an upper and lower endoscopy with a small polyp being removed at [place] with a history of stool guaiacs being positive and anemia having recently discharged from [facility] [place] 2 days prior to his admission to Swing Bed having been admitted from home through home health for continued physical therapy and ongoing reconditioning. 3. Anemia probably secondary to recent gastroesophageal bleed currently on Vitamins and iron supplements showing improvement in hemoglobin on admission and shown to be stable. 4. Significant weakness secondary to ongoing hypercalcemia exacerbated by severe dehydration during Swing Bed admission requiring admission to acute care for IV fluids and management of hypercalcemia. 5. Chronic constipation. 6. Cardiac murmur, systolic, chronic. 7. Acute weight loss. 8. Diabetes mellitus type 2 on oral therapy. 9. Large left buttock incision due to a deep abscess with Methicillin resistant Staphylococcus aureus approximately 6 weeks previous to this admission having an incision and drainage performed by Dr. Tim showing improvement in granulation tissue formation. PLAN: Given the patient's clinical presentation and laboratory studies to include severely elevated calcium levels, the patient will be discharged from Swing Bed and admitted to Acute Care for further management. Prior to discharge , she was given 1 liter of fluids. This will be continued for an additional 2 to 3 liters and then maintenance fluid to be determined based off current repeat of BMP. I plan to repeat a BMP 4 hours after admission to acute care and monitor calcium levels closely. There is concern that once the patient is no longer hemoconcentrated, he probably will be anemic and will monitor this closely with a repeat CBC in the morning. Dr. Miller did discuss the case with Dr. Torres who he actually had an appointment with today, but due to his transfer to Acute Care was unable to attend. Dr. Torres has a concern that he may have multiple myeloma, therefore she recommended additional testing to include quantitative hemoglobins, beta microglobulins and kappa and lambda free light chains. She also recommended that we start him on Dexamethasone 40 mg IV daily for 4 days with today being day 1, as well as start him on Xeloda, bromic acid, Reclast 4 mg IV times 1 dose and to provide him with PPI coverage given the extreme high doses of Dexamethasone for the next 4 days. He will need close monitoring in regards to his blood sugar and he will be on sliding scale as appropriate. Will anticipate length of stay to be 2 to 3 days. Until then, will continue to monitor the patient closely and treat appropriately. #[id number] [facility]
[2017-02-03] MEDS ORDERED: MAGNESIUM HYDROXIDE 30 ML UD PO PRN (10:46)
[2017-02-03] MEDS ORDERED: ACETAMINOPHEN 325 MG TAB PO PRN (10:46)
[2017-02-03] MEDS ORDERED: ONDANSETRON INJ 4 MG/2 ML VIAL IV PRN (10:46)
[2017-02-03] MEDS ORDERED: ALUM & MAG HYDROX-SIMETHICONE 30 ML UD PO PRN (10:46)
[2017-02-03] MEDS ORDERED: SODIUM CHLORIDE 0.9% 1000ML 1,000 ML IVS ONE (11:21)
[2017-02-03] MEDS: IV SET AND CAP CHANGE INJ INJ SCH (11:33)
[2017-02-03] MEDS ORDERED: SODIUM CHLORIDE 0.45% 1000ML 1,000 ML IVS ONE (13:33)
[2017-02-03] MEDS: SODIUM CHLORIDE 0.45% 1000ML 1,000 ML IVS PRN (13:34)
[2017-02-03] MEDS: DEXAMETHASONE INJ 10 MG/ML VIAL IV SCH (16:30)
[2017-02-03] MEDS: METOPROLOL TARTRATE 25 MG TAB PO SCH (16:33)
[2017-02-03] MEDS: OMEPRAZOLE CAP 20 MG CAP PO SCH (16:34)
[2017-02-03] MEDS ORDERED: GLUCAGON INJ 1 MG VIAL SUBCU PRN (18:07)
[2017-02-03] MEDS ORDERED: HALOPERIDOL LACTATE INJ 5 MG/ML VIAL IM ONE (20:09)
[2017-02-03] MEDS ORDERED: LORazepam 0.5 MG TAB PO ONE ×2 (20:10→22:22)
[2017-02-03] MEDS: SIMVASTATIN 20 MG TAB PO SCH (21:15)
[2017-02-03] MEDS: INSULIN DETEMIR 100 UNITS/ML PEN SUBCU SCH (21:18)
[2017-02-03] MEDS: INSULIN LISPRO 100 UNITS/ML PEN SUBCU SCH (22:05)
[2017-02-03] MEDS: SODIUM CHLORIDE 0.9% (FLUSH) 10 ML SYG IV SCH (23:36)
[2017-02-03] MEDS ORDERED: LORazepam 0.5 MG TAB PO PRN (23:41)
[2017-02-03] MEDS ORDERED: HALOPERIDOL LACTATE INJ 5 MG/ML VIAL IM PRN (23:42)
[2017-02-04] MEDS ORDERED: LORazepam 1 MG TAB ONE (00:06)
[2017-02-04] MEDS: HYDROcodone 5MG/APAP 325MG 1 EA TAB PO PRN ×2 (00:10→23:43)
[2017-02-04] MEDS: SODIUM CHLORIDE 0.9% 1000ML 1,000 ML IVS PRN ×2 (01:05→09:09)
[2017-02-04] MEDS: INSULIN LISPRO 100 UNITS/ML PEN SUBCU SCH ×7 (07:55→20:51)
[2017-02-04] MEDS ORDERED: NON-FORMULARY MEDICATION 1 EA MIS (Umeclidinium-Vilanterol [Anoro Ellipta 62.5-25 Mcg/Inh] INH SCH (08:00)
[2017-02-04] MEDS: glyBURIDE 5 MG TAB PO SCH (08:41)
[2017-02-04] MEDS: FERROUS SULFATE 325 MG TAB PO SCH (08:41)
[2017-02-04] MEDS: METOPROLOL TARTRATE 25 MG TAB PO SCH ×2 (08:41→16:54)
[2017-02-04] MEDS: OMEPRAZOLE CAP 20 MG CAP PO SCH ×2 (08:42→16:54)
[2017-02-04] MEDS ORDERED: CARBONYL IRON PO SCH (09:00)
[2017-02-04] MEDS ORDERED: LOVASTATIN 40 MG PO SCH (09:00)
[2017-02-04] MEDS: DOCUSATE SODIUM 100 MG CAP PO SCH (09:12)
[2017-02-04] MEDS: SPIRONOLACTONE 25 MG TAB PO SCH (09:12)
[2017-02-04] MEDS: CYANOCOBALAMIN 1,000 MCG TAB PO SCH (09:12)
[2017-02-04] MEDS: RAMIPRIL 5 MG CAP PO SCH (09:12)
[2017-02-04] MEDS: SODIUM CHLORIDE 0.9% (FLUSH) 10 ML SYG IV SCH ×2 (09:13→20:45)
[2017-02-04] MEDS: DEXAMETHASONE INJ 10 MG/ML VIAL IV SCH (09:47)
[2017-02-04] MEDS: INSULIN DETEMIR 100 UNITS/ML PEN SUBCU SCH ×2 (09:56→20:42)
[2017-02-04] MEDS ORDERED: ZOLEDRONIC ACID INJ 4 MG in SODIUM CHLORIDE 0.9% 100ML 100 ML IVPB ONE (14:43)
[2017-02-04] MEDS: SODIUM CHLORIDE 0.45% 1000ML 1,000 ML IVS PRN (16:58)
[2017-02-04] MEDS ORDERED: TAMSULOSIN 0.4 MG CAP ONE (19:56)
[2017-02-04] MEDS: TAMSULOSIN 0.4 MG CAP PO SCH (20:44)
[2017-02-04] MEDS: LORazepam 1 MG TAB PO SCH (20:44)
[2017-02-04] MEDS: SIMVASTATIN 20 MG TAB PO SCH (20:46)
--- NOTE | 2017-02-04 22:07 | PN ---
DATE: 02/04/17 SUPERVISING PHYSICIAN: Britton Miller M.D. SUBJECTIVE: The patient yesterday was started on treatment for concerns for multiple myeloma under the consultation and guidance of Dr. Torres. He was given Decadron initial dose of 40 mg IV and experienced a significant er's episode requiring some Haldol and Ativan administration. After several doses in the afternoon, he did finally settle down. He remains afebrile and again is showing some disorientation and some side effects from the steroid administration, but has been remaining fairly calm and cooperative. OBJECTIVE: VITAL SIGNS: Temperature 97.7, pulse 94, blood pressure 123/66, respirations 16 showing 95% on room air saturation. I's and O's show a negative balance of 2670 with 580 in, 3250 out. He has 1 bowel movement. Weight is 76.4 kg. CHEST: Lungs are clear to auscultation. HEART: Regular rate and rhythm. ABDOMEN: Soft, non-tender. Positive bowel sounds. EXTREMITIES: No clubbing, cyanosis or edema. NEUROLOGIC: He is quite disoriented and is unaware of his environment, but is easily reoriented for short periods of time. He does very well with a sitter and has shown some improvement after Dilaudid and Ativan. There is no obvious neurological deficits as he is much more alert than he was prior to admission with the significantly low calcium levels at which point he was fairly lethargic. LABORATORY: CBC today shows a stable H&H at 9.3 and 27.9. White count is normal at 10.0, platelet count is within normal limits at 173,000. Differential does show a left shift. Chemistries now have shown normalization of his calcium. Electrolytes now are within normal limits with sodium of 136, potassium 4.5, calcium is down to 11.7 from 13.9. Renal function shows some improvement after fluids. BUN is up but his creatinine is down from 2.0 to 1.72. Glucoses did show some elevation, of course, with the administration of steroids, but have shown to now more normalize and have been anywhere from 96 to 269. Liver functions show to be within normal limits. Serum total protein shows to be continually elevated at 8.0 with albumin down to 2.5. Urinalysis on admission did show 250 of glucose with small amount of blood, otherwise was within normal limits. Additional testing was sent out which includes immunoglobulins and Macy/Lambda light chains per Dr. Torres with are pending. RADIOLOGY: No additional radiographic studies were submitted. ASSESSMENT: 1. Severe hypercalcemia felt to be secondary to severe dehydration with the patient having poor oral intake while on Swing Bed only drinking milk shakes and possibly some underlying component due to possibly multiple myeloma still yet to be determined with calcium levels now normalized after IV fluids and given Reclast. 2. Recent gastrointestinal hemorrhage having upper and lower endoscopy with a small polyp being removed at [place] with a history of stool guaiacs being positive and anemia from recent discharge from [facility] 2 days prior to his admission to Swing Bed which at the time was admitted through home health for continued physical therapy and ongoing conditioning with H&H showing to be stable. 3. Anemia secondary to recent gastroesophageal bleed currently on vitamins and iron showing stable hemoglobin and hematocrit since admission. 4. Significant weakness secondary to ongoing hypercalcemia exacerbated by severe dehydration during Swing Bed admission requiring admission to Acute Care for IV fluids and management of hypercalcemia dramatically improved after Decadron administration and IV fluids. 5. Chronic constipation, ongoing monitoring. 6. Cardiac murmur, systolic, chronic. 7. Acute weight loss with concerns for multiple myeloma. 8. Diabetes mellitus type 2 on oral therapy exacerbated by Decadron administration. 9. History of left large buttock incision due to deep abscess with MRSA approximately 6 weeks previous to admission to Swing Bed with an incision and drainage having been performed by Dr. Tim, showing improvement and granulation tissue formation with no obvious signs of infection. 10. 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 PLAN: Dr. Miller discussed ongoing plan of care with Dr. Torres who actually the patient was supposed to have seen yesterday, but was unable to due to Acute Care admission. Additional testing has been sent out and those are pending. The patient was given Reclast today as well as started on Decadron 40 mg for a total of 4 days which today is day 2. He did receive several liters of fluids and is now on IV maintenance with half normal saline at 80 mL an hour. His Valdez is to be removed today as he is no longer requiring strict I and O measurements. Again, additional testing includes quantitative microglobulins, beta microglobulins, Macy and Lambda free light chains. He does remain on PPI coverage secondary to the extreme dosing of Dexamethasone for the next 4 days. Again, he did have some mild steroid psychosis and er's yesterday which required the administration of Haldol and Ativan. Will continue to monitor this and possibly need to consider adding Seroquel at some point, but at this point Haldol seems to be working well. His blood sugars did elevate. I did put him on Levemir 10 b.i.d. along with 5 of regular insulin at a.c. along with sliding scale which seems to have stabilized his blood sugar. Will need to monitor his blood sugars closely and address his additional Levemir and a.c. coverage if needed. Will anticipate discharge within the next possibly 3 days once he finishes his Decadron depending on how clinically he presents, probably needing continued Swing Bed admission. Until then, will continue to monitor the patient closely and treat appropriately. #[id number] [facility]
[2017-02-04] MEDS: HALOPERIDOL LACTATE INJ 5 MG/ML VIAL IM PRN (23:07)
[2017-02-05] MEDS ORDERED: HALOPERIDOL LACTATE INJ 5 MG/ML VIAL IM ONE ×2 (01:23→22:38)
[2017-02-05] MEDS ORDERED: NITROGLYCERIN 0.2 MG/HR PATCH TD ONE ×2 (02:36→02:37)
[2017-02-05] MEDS: SODIUM CHLORIDE 0.45% 1000ML 1,000 ML IVS PRN ×2 (05:46→22:59)
[2017-02-05] MEDS: OMEPRAZOLE CAP 20 MG CAP PO SCH ×2 (07:31→17:51)
[2017-02-05] MEDS: INSULIN LISPRO 100 UNITS/ML PEN SUBCU SCH ×7 (07:59→20:56)
[2017-02-05] MEDS: CYANOCOBALAMIN 1,000 MCG TAB PO SCH (08:00)
[2017-02-05] MEDS: RAMIPRIL 5 MG CAP PO SCH (08:00)
[2017-02-05] MEDS: SPIRONOLACTONE 25 MG TAB PO SCH (08:00)
[2017-02-05] MEDS: glyBURIDE 5 MG TAB PO SCH (08:00)
[2017-02-05] MEDS: DOCUSATE SODIUM 100 MG CAP PO SCH (08:01)
[2017-02-05] MEDS: DEXAMETHASONE INJ 10 MG/ML VIAL IV SCH (08:01)
[2017-02-05] MEDS: METOPROLOL TARTRATE 25 MG TAB PO SCH ×2 (08:01→17:51)
[2017-02-05] MEDS: FERROUS SULFATE 325 MG TAB PO SCH (08:01)
[2017-02-05] MEDS: SODIUM CHLORIDE 0.9% (FLUSH) 10 ML SYG IV SCH ×2 (08:13→20:28)
[2017-02-05] MEDS: INSULIN DETEMIR 100 UNITS/ML PEN SUBCU SCH ×2 (08:13→20:56)
[2017-02-05] MEDS: NON-FORMULARY MEDICATION 1 EA MIS (Umeclidinium-Vilanterol [Anoro Ellipta 62.5-25 Mcg/Inh] INH SCH (08:24)
--- NOTE | 2017-02-05 09:11 | RAD ---
EXAM DESCRIPTION: Chest,1 View CLINICAL HISTORY: congestion COMPARISON: December 22, 2016 FINDINGS: Accounting for AP lordotic technique, the cardiomediastinal silhouette is unremarkable. There is elevation of the left knee diaphragm which, accounting for differences in technique between the 2 exams, is probably stable from December 22, 2016. There is no airspace consolidation or pleural effusion. The bronchovascular markings are within normal limits, and the lungs are not hyperinflated. There is no pneumothorax or acute fracture. IMPRESSION: Chronic mild elevation of the left hemidiaphragm, but no acute intrathoracic abnormality. Electronically signed by: Ramakrishna Pierre MD 02/05/2017 9:10 AM CDT Workstation: [id number]
[2017-02-05] MEDS: HALOPERIDOL LACTATE INJ 5 MG/ML VIAL IM PRN (20:26)
[2017-02-05] MEDS: TAMSULOSIN 0.4 MG CAP PO SCH (20:26)
[2017-02-05] MEDS: SIMVASTATIN 20 MG TAB PO SCH (20:26)
[2017-02-05] MEDS: LORazepam 1 MG TAB PO SCH (20:27)
--- NOTE | 2017-02-05 21:13 | PN ---
DATE: 02/05/17 SUPERVISING PHYSICIAN: Britton Miller M.D. SUBJECTIVE: The patient is sitting up in his hospital bed. His daughters are at the bedside. He is very confused and has been for the last few days. 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 They in turn spoke with their mother and I had an extensive conversation with one of his daughters as well as his , and they have decided that they would like to continue his active treatment but they would like to make him a do not resuscitate. At some point during the night, he complained of chest pain. Cardiac enzymes were initiated as well as an EKG, but has no further complaints of any chest discomfort or chest pain. OBJECTIVE: VITAL SIGNS: He is afebrile, heart rate 81, blood pressure 121/71, respiratory rate 18, O2 sat is 96% on 2 liters nasal cannula. RESPIRATORY: Essentially clear to auscultation bilaterally. He is somewhat coarse at the bases. HEART: Regular rate and rhythm. ABDOMEN: Soft, nondistended, non- tender. Bowel sounds are positive. EXTREMITIES: No cyanosis, clubbing or edema. NEUROLOGIC: He is awake and alert. He is disoriented. LABORATORY: WBCs have gone up to 14.6, hemoglobin and hematocrit are stable at 9.1 and 27.1. Sodium 135, potassium 4.3, chloride 108, BUN 59, creatinine 1.74 , calcium 10.2. Second set of cardiac enzymes showed creatinine kinase of 323, CK-MB of 7.2 and troponin of 0.23. His third set in the afternoon enzymes were CK of 224, CK-MB of 4.6 and troponin 0.14. RADIOLOGY: Chest x-ray per radiology interpretation shows chronic mild elevation of the left hemidiaphragm but no acute intrathoracic abnormality. All other labs and films have been reviewed via the EMR. ASSESSMENT: 1. Severe hypercalcemia secondary to severe dehydration that has now normalized with IV fluids. 2. Recent gastrointestinal bleed having an upper and lower endoscopy in [place] with the removal of a small polyp. He has a history of positive stool guaiacs as well as anemia and sent to the hospital for Swing Bed admission, but was recently readmitted due to his hypercalcemia. 3. Anemia probably secondary to recent gastrointestinal bleed. He currently sees Dr. Torres and there are concerns for multiple myeloma given his recent clinical progression. 4. Significant weakness secondary to ongoing hypercalcemia exacerbated by severe dehydration now presently on Acute Care currently getting IV fluids and management of electrolytes. 5. Chronic constipation. 6. Chest pains overnight that have now resolved with an elevated troponin as well as creatinine kinase and CK-MB that are now trending downward. 7. Acute weight loss. 8. Diabetes mellitus type 2. 9. Large left buttocks incision due to a deep abscess with Methicillin resistant Staphylococcus aureus approximately 6 weeks ago that is now showing improvement with granulation tissue formation and presently stable. PLAN: We will continue present supportive care. He continues to be confused most likely from the high dose steroid administration. I will call Dr. Torres's office tomorrow for further recommendations on treatment needed in regards to his anemia. I have also made him a DNR at his 's request, but we will continue present aggressive treatment. I have ordered lab for in the morning and I have decreased his IV fluids. We can stop his IV fluids in the morning if he is taking good oral intake. We will continue to monitor the patient closely and followup as needed. Dr. Miller is the collaborating physician available for consultation. #[id number] [facility]
[2017-02-05] MEDS ORDERED: diphenhydrAMINE HCL 50 MG/ML VIAL IV ONE (22:45)
[2017-02-06] MEDS: OMEPRAZOLE CAP 20 MG CAP PO SCH ×2 (06:06→17:09)
[2017-02-06] MEDS: INSULIN LISPRO 100 UNITS/ML PEN SUBCU SCH ×7 (07:18→20:57)
[2017-02-06] MEDS: FERROUS SULFATE 325 MG TAB PO SCH (08:08)
[2017-02-06] MEDS: METOPROLOL TARTRATE 25 MG TAB PO SCH ×2 (08:08→17:09)
[2017-02-06] MEDS: glyBURIDE 5 MG TAB PO SCH (08:08)
[2017-02-06] MEDS: NON-FORMULARY MEDICATION 1 EA MIS (Umeclidinium-Vilanterol [Anoro Ellipta 62.5-25 Mcg/Inh] INH SCH (08:28)
[2017-02-06] MEDS: INSULIN DETEMIR 100 UNITS/ML PEN SUBCU SCH ×2 (08:46→21:00)
[2017-02-06] MEDS: CYANOCOBALAMIN 1,000 MCG TAB PO SCH (08:58)
[2017-02-06] MEDS: SODIUM CHLORIDE 0.9% (FLUSH) 10 ML SYG IV SCH ×2 (08:58→23:48)
[2017-02-06] MEDS: RAMIPRIL 5 MG CAP PO SCH (08:59)
[2017-02-06] MEDS: DOCUSATE SODIUM 100 MG CAP PO SCH (08:59)
[2017-02-06] MEDS: SPIRONOLACTONE 25 MG TAB PO SCH (10:37)
[2017-02-06] MEDS: DEXAMETHASONE INJ 10 MG/ML VIAL IV SCH (10:37)
[2017-02-06] MEDS: IV SET AND CAP CHANGE INJ INJ SCH (11:00)
[2017-02-06] MEDS: HYDROcodone 5MG/APAP 325MG 1 EA TAB PO PRN (13:06)
--- NOTE | 2017-02-06 13:16 | PN ---
SUPERVISING PHYSICIAN: Britton Miller MD DATE: 02/06/17 SUBJECTIVE: The patient is lying in his hospital bed. He is asleep. He awakens easily. He is much less confused than he was yesterday or the prior days. He has no complaints of shortness of breath, chest pain, nausea, vomiting or diarrhea. OBJECTIVE: VITAL SIGNS: Afebrile. Heart rate 76. Blood pressure 101/58. Respiratory rate 22. O2 saturation 92% on room air. LUNGS: Clear to auscultation bilaterally. CARDIAC: Regular rate and rhythm. ABDOMEN: Soft, nontender, nondistended. Bowel sounds are positive. EXTREMITIES: No cyanosis, clubbing or edema. NEUROLOGIC: Awake, alert and oriented to person and place. LABORATORY: White count 14,000, hemoglobin and hematocrit stable at 9.7 and 29.1. Sodium 134, potassium 4.3, chloride 108, BUN 59, creatinine 1.65. Blood sugars have run between 124 and 203. His third set of cardiac enzymes from yesterday improved with a CK of 224, CK-MB 4.6, troponin dropped to 0.14. All other labs and films have been reviewed via the EMR. ASSESSMENT: 1. Severe hypercalcemia secondary to severe dehydration that has now normalized with IV fluids. 2. Recent gastrointestinal bleed having an upper and lower endoscopy in [place] with the removal of a small polyp. He has a history of positive stool guaiacs as well as anemia and sent to the hospital for Swing Bed admission, but was recently readmitted due to his hypercalcemia. 3. Anemia probably secondary to recent gastrointestinal bleed. He currently sees Dr. Torres and there are concerns for multiple myeloma given his recent clinical progression. 4. Significant weakness secondary to ongoing hypercalcemia exacerbated by severe dehydration now presently on Acute Care currently getting IV fluids and management of electrolytes. 5. Chronic constipation. 6. Chest pains overnight that have now resolved with an elevated troponin as well as creatinine kinase and CK-MB that are now trending downward. 7. Acute weight loss. 8. Diabetes mellitus, type 2. 9. Large left buttocks incision due to a deep abscess with Methicillin resistant Staphylococcus aureus approximately 6 weeks ago that is now showing improvement with granulation tissue formation and presently stable. PLAN: Continue present supportive care. Today is his last day of high dose dexamethasone. I have called Dr. Torres today, but I have not spoken to her today, so we will followup with her either this afternoon or in the morning in regards to his present care as well as the ongoing plan. His neuro status has improved, so we will continue to monitor that. I have also ordered some lab for in the morning. I discontinued his IV fluids as he is taking p.o. well. We will continue to monitor the patient closely and followup as needed. Dr. Miller is the collaborating physician and available for consultation. #[id number] [facility]
[2017-02-06] MEDS ORDERED: SODIUM CHLORIDE 0.45% 1000ML 1,000 ML IVS ONE (16:20)
[2017-02-06] MEDS ORDERED: SODIUM CHLORIDE 0.45% 1000ML 1,000 ML IVS PRN (16:42)
[2017-02-06] MEDS: SIMVASTATIN 20 MG TAB PO SCH (20:57)
[2017-02-06] MEDS: TAMSULOSIN 0.4 MG CAP PO SCH (20:57)
[2017-02-06] MEDS: LORazepam 1 MG TAB PO SCH (20:57)
[2017-02-06] MEDS: HALOPERIDOL LACTATE INJ 5 MG/ML VIAL IM PRN (22:48)
[2017-02-07] MEDS ORDERED: ENOXAPARIN SODIUM 40 MG/0.4 ML SYG SUBCU ONE ×2 (01:38→19:46)
[2017-02-07] MEDS ORDERED: ENOXAPARIN SODIUM 40 MG/0.4 ML SYG SUBCU SCH (01:40)
[2017-02-07] MEDS: OMEPRAZOLE CAP 20 MG CAP PO SCH ×2 (06:15→16:42)
[2017-02-07] MEDS: glyBURIDE 5 MG TAB PO SCH (07:42)
[2017-02-07] MEDS: METOPROLOL TARTRATE 25 MG TAB PO SCH ×2 (07:42→17:52)
[2017-02-07] MEDS: FERROUS SULFATE 325 MG TAB PO SCH (07:42)
[2017-02-07] MEDS: HYDROcodone 5MG/APAP 325MG 1 EA TAB PO PRN (07:42)
[2017-02-07] MEDS: INSULIN LISPRO 100 UNITS/ML PEN SUBCU SCH ×7 (08:13→21:00)
[2017-02-07] MEDS: NON-FORMULARY MEDICATION 1 EA MIS (Umeclidinium-Vilanterol [Anoro Ellipta 62.5-25 Mcg/Inh] INH SCH (08:17)
[2017-02-07] MEDS ORDERED: FUROSEMIDE INJ 20 MG/2 ML VIAL IV ONE (09:19)
[2017-02-07] MEDS ORDERED: MORPHINE SULFATE INJ 10 MG/ML VIAL ONE (09:42)
[2017-02-07] MEDS ORDERED: HALOPERIDOL LACTATE INJ 5 MG/ML VIAL IM ONE (09:44)
[2017-02-07] MEDS ORDERED: MORPHINE SULFATE INJ 10 MG/ML VIAL IV ONE (09:46)
[2017-02-07] MEDS: RAMIPRIL 5 MG CAP PO SCH (09:48)
[2017-02-07] MEDS: CYANOCOBALAMIN 1,000 MCG TAB PO SCH (09:48)
[2017-02-07] MEDS: INSULIN DETEMIR 100 UNITS/ML PEN SUBCU SCH ×2 (09:48→21:00)
[2017-02-07] MEDS: SODIUM CHLORIDE 0.9% (FLUSH) 10 ML SYG IV SCH ×2 (09:48→21:00)
[2017-02-07] MEDS: DOCUSATE SODIUM 100 MG CAP PO SCH (09:48)
[2017-02-07] MEDS: SPIRONOLACTONE 25 MG TAB PO SCH (09:48)
[2017-02-07] MEDS: SODIUM CHLORIDE 0.45% 1000ML 1,000 ML IVS PRN (09:49)
[2017-02-07] MEDS ORDERED: MAGNESIUM SULFATE PREMIX 2GM 2 GM in PREMIX BAG 1 BAG IVPB ONE (09:55)
--- NOTE | 2017-02-07 10:20 | PN ---
SUPERVISING PHYSICIAN: Britton Miller MD DATE: 02/07/17 SUBJECTIVE: The patient is lying in his hospital bed. He is quiet, but very restless. During the night, I was contacted that he was having some irregular heartbeat and his cardiac cath technologist showed a variance between normal sinus rhythm , PACs and a few ectopic beats. His vital signs were stable during that episode and cardiac enzymes were drawn and EKG was done. The patient denied any chest pain or shortness of breath at that time. He was very agitated. I spoke with his granddaughter at length this morning and explained his situation overnight and at this point we will try to keep his pain under control and watch his monitor. OBJECTIVE: VITAL SIGNS: Afebrile. Heart rate 84. Blood pressure 130/64. Respiratory rate 24. O2 saturation 93% on room air. LUNGS: A few scattered crackles throughout and diminished at the bases.n. CARDIAC: Regular rate, slightly irregular rhythm. ABDOMEN: Soft, nontender, nondistended. Bowel sounds are positive. EXTREMITIES: No cyanosis, clubbing or edema. NEUROLOGIC: Awake, alert, but he is disoriented except to person. LABORATORY: White count 11, hemoglobin and hematocrit are stable at 10 and 29.9. Neutrophils 81.2. Sodium 135, potassium 4, chloride 109. Carbon dioxide 17, BUN 60, creatinine 1.63. Glucose 182, calcium 8.5, magnesium 1.6. Creatinine kinase from his cardiac enzymes at 1:30 this morning was 393, CK-MB 6.4, troponin 0.07. All other labs and films have been reviewed via the EMR. ASSESSMENT: 1. Anemia, probably secondary to recent gastrointestinal bleed. He currently sees Dr. Torres and there is some concern for multiple myeloma given his recent clinical progression. 2. Dysrhythmia overnight with stable vital signs. He has an ejection fraction of approximately 20%. 3. Severe hypercalcemia secondary to severe dehydration that has normalized during his Acute Care stay. 4. Significant weakness secondary to ongoing hypercalcemia that was exacerbated by severe dehydration. 5. Chronic constipation. 6. Acute weight loss. 7. Diabetes mellitus, type 2. 8. Large left buttocks incision due to a deep abscess with Methicillin resistant Staphylococcus aureus culture that was treated approximately 6 to 7 weeks ago and now showing improvement with granulation tissue and presently stable. PLAN: We will continue present supportive care. I will give him some magnesium today. We will continue to watch his cardiac rhythm. I have also increased his pain medication so maybe we can keep him more comfortable. Dr. Torres will be out of town until Friday and at that time we will need to call her and update her on the patient's progress as well as some lab that she had ordered. I have ordered labs and chest x-ray in the morning. I have also given him an extra dose of Lasix today. Yesterday was his last day of high dose steroids, so hopefully his mental status will improve since completion of the steroids. We will continue to monitor the patient closely and followup as needed. #[id number] [facility]
[2017-02-07] MEDS ORDERED: MAGNESIUM SULFATE PREMIX 2GM 50 ML IVPB ONE (10:47)
[2017-02-07] MEDS: HYDROcodone 7.5MG/APAP 325MG 1 EA TAB PO PRN ×2 (16:43→21:41)
[2017-02-07] MEDS: TAMSULOSIN 0.4 MG CAP PO SCH (21:09)
[2017-02-07] MEDS: QUEtiapine FUMARATE 25 MG TAB PO SCH (21:09)
[2017-02-07] MEDS: ENOXAPARIN SODIUM 40 MG/0.4 ML SYG SUBCU SCH (21:09)
[2017-02-07] MEDS: SIMVASTATIN 20 MG TAB PO SCH (21:09)
[2017-02-07] MEDS: LORazepam 1 MG TAB PO SCH (21:13)
[2017-02-07] MEDS: HALOPERIDOL LACTATE INJ 5 MG/ML VIAL IM PRN (22:36)
--- NOTE | 2017-02-08 06:28 | RAD ---
Procedure: XR CHEST 1 VIEW Exam Date: 02/08/2017 Ordering Provider: SANJEEV GRAYSON Clinical Indication: chf Comparison: 02/05/2017 Findings: Cardiac silhouette: Enlarged Pulmonary vasculature : Mild interstitial prominence bilaterally without j luis pulmonary edema. Mediastinal contour: Normal Aortic contour: Aortic calcification. Focal lung consolidation: No focal lung consolidation. Bibasilar subsegmental atelectasis. Pleural effusion: None Pneumothorax: None Acute bony or soft tissue abnormality: None Impression: 1. No acute abnormalities in the chest. Electronically signed by: Winston Horowitz MD 02/08/2017 6:28 AM CDT
[2017-02-08] MEDS: OMEPRAZOLE CAP 20 MG CAP PO SCH ×2 (06:47→17:33)
[2017-02-08] MEDS: INSULIN LISPRO 100 UNITS/ML PEN SUBCU SCH ×7 (07:17→21:07)
[2017-02-08] MEDS: CYANOCOBALAMIN 1,000 MCG TAB PO SCH (07:27)
[2017-02-08] MEDS: RAMIPRIL 5 MG CAP PO SCH (07:27)
[2017-02-08] MEDS: SPIRONOLACTONE 25 MG TAB PO SCH (07:27)
[2017-02-08] MEDS: QUEtiapine FUMARATE 25 MG TAB PO SCH ×2 (07:27→20:25)
[2017-02-08] MEDS: METOPROLOL TARTRATE 25 MG TAB PO SCH ×2 (07:27→17:33)
[2017-02-08] MEDS: DOCUSATE SODIUM 100 MG CAP PO SCH (07:27)
[2017-02-08] MEDS: HYDROcodone 7.5MG/APAP 325MG 1 EA TAB PO PRN ×2 (07:27→17:36)
[2017-02-08] MEDS: FERROUS SULFATE 325 MG TAB PO SCH (07:27)
[2017-02-08] MEDS: SODIUM CHLORIDE 0.9% (FLUSH) 10 ML SYG IV SCH ×2 (07:28→21:00)
[2017-02-08] MEDS: glyBURIDE 5 MG TAB PO SCH (07:41)
[2017-02-08] MEDS: HALOPERIDOL LACTATE INJ 5 MG/ML VIAL IM PRN ×3 (07:45→21:44)
[2017-02-08] MEDS: NON-FORMULARY MEDICATION 1 EA MIS (Umeclidinium-Vilanterol [Anoro Ellipta 62.5-25 Mcg/Inh] INH SCH (08:21)
[2017-02-08] MEDS ORDERED: FUROSEMIDE INJ 20 MG/2 ML VIAL IV ONE (08:47)
[2017-02-08] MEDS ORDERED: LEVALBUTEROL NEBS 1.25 MG/3 ML VIAL NEB PRN (08:49)
[2017-02-08] MEDS: INSULIN DETEMIR 100 UNITS/ML PEN SUBCU SCH ×2 (09:13→21:37)
[2017-02-08] MEDS: LEVALBUTEROL NEBS 1.25 MG/3 ML VIAL NEB SCH ×4 (09:24→19:20)
--- NOTE | 2017-02-08 12:10 | PN ---
SUPERVISING PHYSICIAN: Britton Miller MD DATE: 02/08/17 SUBJECTIVE: The patient is lying in his hospital bed. He opens his eyes and mumbles occasional words. There is no family at the bedside. It is reported by nursing staff that he continues to be very agitated and very restless. He has been requiring repeated doses of Haldol and Ativan. OBJECTIVE: VITAL SIGNS: Afebrile. Heart rate 70. Blood pressure 86/50. Respiratory rate 16. O2 saturation 91% on 3 liters. LUNGS: A few scattered crackles at the apices, otherwise, clear to auscultation. CARDIAC: Regular rate and rhythm. ABDOMEN: Soft, nontender, nondistended. EXTREMITIES: No cyanosis, clubbing or edema. NEUROLOGIC: He is lethargic. He is unable to answer any questions at this time. LABORATORY: White count slightly increased to 13,300, but otherwise CBC is basically unchanged from previous days. Sodium 135, potassium 4, chloride 109. BUN 69, creatinine 2.18. Calcium 8, magnesium 2. Chest x-ray per radiologic interpretation shows no acute abnormalities. All other labs and films have been reviewed via the EMR. ASSESSMENT: 1. Anemia, probably secondary to recent gastrointestinal bleed. He currently sees Dr. Torres and she has some concern for multiple myeloma given his recent clinical progression. 2. Failure to thrive. He is clinically worsening and it may be advisable to talk to the family about hospice care at this time. 3. Severe hypercalcemia secondary to severe dehydration. His calcium has now normalized. 4. Significant weakness secondary to ongoing hypercalcemia as well as his anemia. 5. Chronic constipation. 6. Acute weight loss. 7. Diabetes mellitus, type 2. PLAN: We will continue present supportive care. Dr. Torres is out of town until Friday and we will need to touch base with her at that time to see what her plan of care is for the patient from the standpoint of the multiple myeloma as well as the anemia. It may be beneficial to approach the family about hospice referral given his continued decline and worsening renal function as well as his worsening mental status. His Seroquel has been increased, so maybe we can decrease use of Haldol and Ativan, plus I've added Benadryl to help calm him. Hopefully his agitation and restlessness will resolve since he is no longer receiving high dose steroids. I have repeated some labs in the morning. I have increased his fluids slightly as he is taking poor oral intake. Otherwise, we will continue to monitor the patient closely and followup as needed. Dr. Miller is the collaborating physician and available for consultation. #[id number] [facility]
[2017-02-08] MEDS: SODIUM CHLORIDE 0.45% 1000ML 1,000 ML IVS PRN (12:45)
[2017-02-08] MEDS: diphenhydrAMINE HCL 50 MG/ML VIAL IV PRN ×3 (13:14→21:44)
[2017-02-08] MEDS: DEXTROSE 50% 25 GM/50 ML SYG IV PRN (16:17)
[2017-02-08] MEDS: LORazepam 1 MG TAB PO SCH (20:26)
[2017-02-08] MEDS: ENOXAPARIN SODIUM 40 MG/0.4 ML SYG SUBCU SCH (20:26)
[2017-02-08] MEDS: TAMSULOSIN 0.4 MG CAP PO SCH (20:26)
[2017-02-08] MEDS: SIMVASTATIN 20 MG TAB PO SCH (20:26)
[2017-02-09] MEDS: HYDROcodone 7.5MG/APAP 325MG 1 EA TAB PO PRN ×3 (02:25→23:48)
[2017-02-09] MEDS: SODIUM CHLORIDE 0.9% (FLUSH) 10 ML SYG IV PRN ×2 (02:27→23:48)
[2017-02-09] MEDS: DEXTROSE 50% 25 GM/50 ML SYG IV PRN ×2 (05:56→11:18)
[2017-02-09] MEDS: SODIUM CHLORIDE 0.45% 1000ML 1,000 ML IVS PRN (06:50)
[2017-02-09] MEDS: LEVALBUTEROL NEBS 1.25 MG/3 ML VIAL NEB SCH ×4 (08:33→19:20)
[2017-02-09] MEDS: NON-FORMULARY MEDICATION 1 EA MIS (Umeclidinium-Vilanterol [Anoro Ellipta 62.5-25 Mcg/Inh] INH SCH (08:34)
[2017-02-09] MEDS: INSULIN LISPRO 100 UNITS/ML PEN SUBCU SCH ×6 (08:36→21:48)
[2017-02-09] MEDS: FERROUS SULFATE 325 MG TAB PO SCH (08:37)
[2017-02-09] MEDS: glyBURIDE 5 MG TAB PO SCH (08:37)
[2017-02-09] MEDS: QUEtiapine FUMARATE 25 MG TAB PO SCH ×2 (08:37→20:11)
[2017-02-09] MEDS: SPIRONOLACTONE 25 MG TAB PO SCH (08:37)
[2017-02-09] MEDS: METOPROLOL TARTRATE 25 MG TAB PO SCH ×2 (08:37→18:07)
[2017-02-09] MEDS: CYANOCOBALAMIN 1,000 MCG TAB PO SCH (08:37)
[2017-02-09] MEDS: RAMIPRIL 5 MG CAP PO SCH (08:37)
[2017-02-09] MEDS: SODIUM CHLORIDE 0.9% (FLUSH) 10 ML SYG IV SCH ×2 (08:38→21:00)
[2017-02-09] MEDS: DOCUSATE SODIUM 100 MG CAP PO SCH (08:38)
[2017-02-09] MEDS: INSULIN DETEMIR 100 UNITS/ML PEN SUBCU SCH ×2 (08:38→21:49)
[2017-02-09] MEDS: OMEPRAZOLE CAP 20 MG CAP PO SCH ×2 (08:38→18:07)
[2017-02-09] MEDS ORDERED: DEX 5% W/NACL 0.45% 1000ML 1,000 ML IVS PRN (09:19)
--- NOTE | 2017-02-09 11:05 | PN ---
SUPERVISING PHYSICIAN: HAMMAD SARMIENTO MD DATE: 02/09/17 SUBJECTIVE: The patient is lying in his hospital bed. He is much calmer today than he has been in the past few days. He mumbles occasional answers to questioning but for the most part, he is confused. It is reported that overnight he was calmer although he did require one of Ativan and one dose of Haldol at 2 different times. Benadryl has been helping him stay calmer and he is taking his Seroquel. OBJECTIVE: VITAL SIGNS: Temperature 99.2, heart rate 100. Blood pressure 118/65. Respiratory rate 20. O2 saturation 92% on 2 liters nasal cannula. RESPIRATORY: Scattered rhonchi throughout with poor inspiratory effort. CARDIAC: Regular rate and rhythm. ABDOMEN: Soft, nontender, nondistended. Bowel sounds are positive. EXTREMITIES: No cyanosis, clubbing or edema. NEUROLOGIC: He is awake. He is alert. He is oriented to person only. LABORATORY: Sodium 136, potassium 4, chloride 110. carbon dioxide 18, BUN and creatinine have improved to 61 and 1.94. His blood sugar got as low as 49 overnight but is now 186. Calcium 7.7, magnesium 2. AST 60. WBC has sightly improved to 11.5, hemoglobin of 9.7 and hematocrit 29.5. Neutrophils 81. All other labs and films have been reviewed via the EMR. ASSESSMENT: 1. Anemia, probably secondary to recent gastrointestinal bleed. He currently sees Dr. Torres and she has some concern for multiple myeloma given his recent clinical progression. Dr. Torres recommended he receive high dose Decadron for several days. His last dose was on , 02/06. 2. Failure to thrive. He is clinically worsening overall, although today he is somewhat better. At some point, it would be advisable to see family consider hospice care. 3. Severe hypercalcemia secondary to severe dehydration. His calcium has now normalized. 4. Significant weakness secondary to ongoing hypercalcemia as well as his anemia. 5. Altered mental status that has slowly improved overnight. 6. Chronic constipation. 7. Acute weight loss. 8. Diabetes mellitus, type 2. PLAN: We will continue present supportive care. Hopefully, he will continue to improve with his mental status after receiving the high-dose steroids. Dr. Torres has been out of town but will be back in the clinica tomorrow and we will need to touch base with her to see further recommendations as far as his plan of care as far as his prognosis. I have discontinued his Haldol but will continue his Seroquel at the present dosing and he received Benadryl yesterday and that helped with his agitation. His blood sugars have been low several times in the last 24 hours, mostly due to sometimes he eats and sometimes he does not, so I started a dextrose solution at a very low rate and we will monitor that closely. I will also stop his scheduled NovoLog dosing and change to sliding scale. Will dc his a.m. Levemir and only give long acting insulin at night. He is taking p.o. better this morning than he has been, so the dosing of his Levemir will need to be adjusted. His creatinine has improved as well as his white count has decreased so I will check his labs in the morning as well as a chest x-ray, ordered EzPAP and continue aggressive pulmonary hygiene. In the meantime we will continue to monitor the patient closely and followup as needed. Dr. Sarmiento is the collaborating physician and available for consultation. #[id number] [facility]
[2017-02-09] MEDS ORDERED: GLUCAGON INJ 1 MG VIAL SUBCU PRN (11:18)
[2017-02-09] MEDS: DEX 5% W/NACL 0.9% 1000ML 1,000 ML IVS PRN (11:41)
[2017-02-09] MEDS: diphenhydrAMINE HCL 50 MG/ML VIAL IV PRN ×2 (12:31→23:49)
[2017-02-09] MEDS: IV SET AND CAP CHANGE INJ INJ SCH (13:50)
[2017-02-09] MEDS: ENOXAPARIN SODIUM 40 MG/0.4 ML SYG SUBCU SCH (20:10)
[2017-02-09] MEDS: LORazepam 1 MG TAB PO SCH (20:10)
[2017-02-09] MEDS: TAMSULOSIN 0.4 MG CAP PO SCH (20:11)
[2017-02-09] MEDS: SIMVASTATIN 20 MG TAB PO SCH (20:11)
[2017-02-10] MEDS: DEX 5% W/NACL 0.9% 1000ML 1,000 ML IVS PRN (06:04)
[2017-02-10] MEDS: DEXTROSE 50% 25 GM/50 ML SYG IV PRN (06:04)
[2017-02-10] MEDS: OMEPRAZOLE CAP 20 MG CAP PO SCH ×2 (06:05→17:14)
[2017-02-10] MEDS: HYDROcodone 7.5MG/APAP 325MG 1 EA TAB PO PRN ×2 (06:05→21:47)
[2017-02-10] MEDS: INSULIN LISPRO 100 UNITS/ML PEN SUBCU SCH ×4 (07:40→21:30)
--- NOTE | 2017-02-10 07:52 | RAD ---
Procedure: XR CHEST 1 VIEW Exam Date: 02/10/2017 Ordering Provider: SANJEEV GRAYSON Clinical Indication: congestion Comparison: 02/08/2017 Findings: Cardiac silhouette: Enlarged Pulmonary vasculature : Mild interstitial prominence bilaterally without j luis pulmonary edema. Mediastinal contour: Normal Aortic contour: Aortic calcification. Focal lung consolidation: Left basilar atelectasis and/or infiltrate. Pleural effusion: No large pleural effusions. Pneumothorax: None Acute bony or soft tissue abnormality: None Impression: 1. Left basilar atelectasis and/or infiltrate is new. Electronically signed by: Winston Horowitz MD 02/10/2017 7:51 AM CDT
[2017-02-10] MEDS: METOPROLOL TARTRATE 25 MG TAB PO SCH ×2 (08:00→17:14)
[2017-02-10] MEDS: FERROUS SULFATE 325 MG TAB PO SCH (08:00)
[2017-02-10] MEDS: glyBURIDE 5 MG TAB PO SCH (08:21)
[2017-02-10] MEDS: NON-FORMULARY MEDICATION 1 EA MIS (Umeclidinium-Vilanterol [Anoro Ellipta 62.5-25 Mcg/Inh] INH SCH (08:47)
[2017-02-10] MEDS: LEVALBUTEROL NEBS 1.25 MG/3 ML VIAL NEB SCH ×4 (09:04→19:38)
[2017-02-10] MEDS: CYANOCOBALAMIN 1,000 MCG TAB PO SCH (09:05)
[2017-02-10] MEDS: SPIRONOLACTONE 25 MG TAB PO SCH (09:05)
[2017-02-10] MEDS: RAMIPRIL 5 MG CAP PO SCH (09:05)
[2017-02-10] MEDS: QUEtiapine FUMARATE 25 MG TAB PO SCH ×2 (09:05→20:30)
[2017-02-10] MEDS: SODIUM CHLORIDE 0.9% (FLUSH) 10 ML SYG IV SCH ×2 (09:05→20:30)
[2017-02-10] MEDS: DOCUSATE SODIUM 100 MG CAP PO SCH (09:05)
--- NOTE | 2017-02-10 14:56 | PN ---
SUPERVISING PHYSICIAN: Raymundo Sarmiento MD DATE: 02/10/17 SUBJECTIVE: The patient has been much more cooperative since starting on Benadryl. He actually was awake this morning for breakfast and is aware of his surroundings and answers questions appropriately at this point. He remains afebrile and has had no nausea or vomiting or diarrhea, no reported additional chest pains. OBJECTIVE: VITAL SIGNS: Temperature 98.2. Pulse 77. Blood pressure 94/50. Respirations 17. Saturation 95% on nasal cannula at 2 liters at rest. I&Os show negative balance of 212 with 1488 in and 1700 out. Weight 73.6 kg. CHEST: Lungs clear to auscultation, just diminished towards the bases. HEART: Regular rate and rhythm. ABDOMEN: Soft, nontender. Positive bowel sounds. EXTREMITIES: No cyanosis, clubbing or edema. NEUROLOGIC: Alert, awake and oriented to person and place. LABORATORY: White count now normalized to 9.5. Hemoglobin and hematocrit have stabilized to 10.4 and 31.0. Platelet count 193,000. Differential now without a left shift. Chemistries show normal sodium and potassium. Carbon dioxide low at 15, chloride slightly elevated at 113, creatinine now near baseline status at 1.61, BUN 46. He has had some erratic blood sugars ranging from less than 40 to 319. Liver functions showed just slightly elevated AST of 46. Calcium 7.4, but corrected for a low albumin of 2.4 at 8.2. RADIOLOGY: Chest x-ray per radiologic interpretation shows a left basilar atelectasis and/or infiltrate which is new. ASSESSMENT: 1. Anemia, probably secondary to recent gastrointestinal bleed. He is being followed by Dr. Torres with a hew diagnosis of multiple myeloma having been treated with high dose Decadron for the last week, showing some improvement with close clinical followup with Dr. Torres needed in the near future. 2. Failure to thrive with him worsening clinically overall, although he does show some improvement in his appetite in the last 24 hours. 3. Severe hypercalcemia secondary to severe dehydration, now normalized after IV fluids. 4. Significant weakness secondary to ongoing hypercalcemia as well as anemia and chronic hospitalization. 5. Altered mental status from hypercalcemia, showing improvement. 6. Chronic constipation. 7. Acute weight loss. 8. Diabetes mellitus, type 2. PLAN: I did visit with Dr. Torres today in regards to laboratory findings which had been sent to her for review. She notes that the patient does have a diagnosis at this point of multiple myeloma and it is needed to determine whether or not the patient is treated or if not, the patient needs to be placed on outpatient hospice care. Dr. Torres feels that treatment is doable, but treatment course has yet to be determined as she has not seen the patient in the outpatient setting in the clinic. She notes that at this point clinically, the patient should have shown improvement and stabilized after treatment with high dose steroids, but will need to start some treatment plan in the near future if the family and patient choose to pursue treatment. Dr. Torres will be out of the office until February 17 and then will not be able to see the patient until the middle of February and recommends that we discharge the patient in the near future in attempts to get the patient to her for further treatment plan options. His blood sugars are showing some improvement after he ate breakfast this morning. We will closely monitor and titrate off the Dextrose. We will further manage blood sugars with Levemir and sliding scale. We will anticipate hopefully discharging him within the next several days. He continues with encouragement for deep breathing exercises and with aggressive pulmonary hygiene as well as EzPAP to prevent any further worsening of atelectasis and prevent infection. Discharge planning is in progress and hopefully will discharge this week. A conference with the family and Dr. Miller as well is being arranged by Farrah, our high school social studies teacher, in efforts to make a decision as to discharging him to the [facility] or make arrangements for care at home as appropriate. Until discharge, we will continue to monitor the patient closely and treat appropriately. #[id number] [facility]
[2017-02-10] MEDS: LORazepam 1 MG TAB PO SCH (20:30)
[2017-02-10] MEDS: SIMVASTATIN 20 MG TAB PO SCH (20:30)
[2017-02-10] MEDS: TAMSULOSIN 0.4 MG CAP PO SCH (20:31)
[2017-02-10] MEDS: ENOXAPARIN SODIUM 40 MG/0.4 ML SYG SUBCU SCH (20:31)
[2017-02-10] MEDS: INSULIN DETEMIR 100 UNITS/ML PEN SUBCU SCH (21:30)
[2017-02-10] MEDS ORDERED: diphenhydrAMINE HCL 25 MG CAP ONE (22:21)
[2017-02-10] MEDS: diphenhydrAMINE HCL 50 MG/ML VIAL IV PRN (22:28)
[2017-02-11] MEDS: DEX 5% W/NACL 0.9% 1000ML 1,000 ML IVS PRN (02:48)
[2017-02-11] MEDS: SODIUM CHLORIDE 0.9% (FLUSH) 10 ML SYG IV PRN (04:44)
[2017-02-11] MEDS: OMEPRAZOLE CAP 20 MG CAP PO SCH ×2 (06:16→17:12)
[2017-02-11] MEDS: FERROUS SULFATE 325 MG TAB PO SCH (08:29)
[2017-02-11] MEDS: RAMIPRIL 5 MG CAP PO SCH (08:29)
[2017-02-11] MEDS: QUEtiapine FUMARATE 25 MG TAB PO SCH ×2 (08:29→20:57)
[2017-02-11] MEDS: DOCUSATE SODIUM 100 MG CAP PO SCH (08:29)
[2017-02-11] MEDS: INSULIN LISPRO 100 UNITS/ML PEN SUBCU SCH ×4 (08:29→20:58)
[2017-02-11] MEDS: CYANOCOBALAMIN 1,000 MCG TAB PO SCH (08:29)
[2017-02-11] MEDS: METOPROLOL TARTRATE 25 MG TAB PO SCH ×2 (08:29→17:12)
[2017-02-11] MEDS: SPIRONOLACTONE 25 MG TAB PO SCH (08:29)
[2017-02-11] MEDS: glyBURIDE 5 MG TAB PO SCH (08:30)
[2017-02-11] MEDS: SODIUM CHLORIDE 0.9% (FLUSH) 10 ML SYG IV SCH (08:30)
[2017-02-11] MEDS: NON-FORMULARY MEDICATION 1 EA MIS (Umeclidinium-Vilanterol [Anoro Ellipta 62.5-25 Mcg/Inh] INH SCH (09:00)
[2017-02-11] MEDS: LEVALBUTEROL NEBS 1.25 MG/3 ML VIAL NEB SCH ×4 (09:11→20:33)
[2017-02-11] MEDS: HYDROcodone 7.5MG/APAP 325MG 1 EA TAB PO PRN (17:12)
[2017-02-11] MEDS: SIMVASTATIN 20 MG TAB PO SCH (20:57)
[2017-02-11] MEDS: ENOXAPARIN SODIUM 40 MG/0.4 ML SYG SUBCU SCH (20:57)
[2017-02-11] MEDS: LORazepam 1 MG TAB PO SCH (20:57)
[2017-02-11] MEDS: TAMSULOSIN 0.4 MG CAP PO SCH (20:57)
[2017-02-11] MEDS: INSULIN DETEMIR 100 UNITS/ML PEN SUBCU SCH (20:59)
[2017-02-12] MEDS: INSULIN LISPRO 100 UNITS/ML PEN SUBCU SCH ×2 (07:39→14:16)
[2017-02-12] MEDS: glyBURIDE 5 MG TAB PO SCH (08:00)
[2017-02-12] MEDS: SPIRONOLACTONE 25 MG TAB PO SCH (08:20)
[2017-02-12] MEDS: RAMIPRIL 5 MG CAP PO SCH (08:20)
[2017-02-12] MEDS: CYANOCOBALAMIN 1,000 MCG TAB PO SCH (08:20)
[2017-02-12] MEDS: OMEPRAZOLE CAP 20 MG CAP PO SCH (08:20)
[2017-02-12] MEDS: SODIUM CHLORIDE 0.9% (FLUSH) 10 ML SYG IV PRN (08:20)
[2017-02-12] MEDS: DOCUSATE SODIUM 100 MG CAP PO SCH (08:21)
[2017-02-12] MEDS: FERROUS SULFATE 325 MG TAB PO SCH (08:22)
[2017-02-12] MEDS: METOPROLOL TARTRATE 25 MG TAB PO SCH (08:22)
[2017-02-12] MEDS: QUEtiapine FUMARATE 25 MG TAB PO SCH (08:25)
[2017-02-12] MEDS: SODIUM CHLORIDE 0.9% (FLUSH) 10 ML SYG IV SCH (08:30)
[2017-02-12] MEDS: NON-FORMULARY MEDICATION 1 EA MIS (Umeclidinium-Vilanterol [Anoro Ellipta 62.5-25 Mcg/Inh] INH SCH (08:37)
[2017-02-12] MEDS: LEVALBUTEROL NEBS 1.25 MG/3 ML VIAL NEB SCH ×2 (08:37→13:15)
--- NOTE | 2017-02-12 08:46 | PN ---
SUPERVISING PHYSICIAN: Raymundo Sarmiento MD DATE: 02/11/17 SUBJECTIVE: The patient continues to be more restful and cooperative and communicative during the day and then continues to have significant sundowner's episodes throughout the night. He has remained afebrile with stable laboratory studies and without any additional chest pains. We did remove his Valdez catheter, however, the patient has continued to show difficulty with voiding and ongoing urinary retention, thus, requiring replacement of the Valdez catheter. OBJECTIVE: VITAL SIGNS: Temperature 98.2. Pulse 91. Blood pressure 121/72. Respirations 18. Saturation 90% on room air. I&Os show positive balance of 772 with 2572 in, 1800 out. He has had several bowel movements. Weight 72.6 kg. CHEST: Lungs clear to auscultation, just slightly diminished towards the bases. HEART: Regular rate and rhythm. ABDOMEN: Soft, nontender. Positive bowel sounds. EXTREMITIES: No cyanosis, clubbing or edema. NEUROLOGIC: Alert, awake and oriented only to person. LABORATORY: Chemistries show potassium 4.1, sodium 138, BUN 36, creatinine 1.50 which is continuing to show improvement since admission. Glucoses are fairly stable, now ranging from 120 to 277 depending on the patient's dietary habits. Calcium 7.4, but corrected for a low albumin is 8.7. Liver functions within normal limits. Ammonia less than 6. MICROBIOLOGY: No specimens to review. RADIOLOGY: No additional radiographic studies today for review. ASSESSMENT: 1. Anemia, probably secondary to recent gastrointestinal bleed. He is being followed by Dr. Torres with a hew diagnosis of multiple myeloma having been treated with high dose Decadron for the last week, showing some improvement with close clinical followup with Dr. Torres needed in the near future. 2. Recent diagnosis of multiple myeloma, needing close followup with Dr. Torres as well as Dr. Miller. 3. Failure to thrive, resulting in worsening clinically overall with the patient showing some small improvement in appetite, but continues to have very little appetite, thus, making him a poor candidate for rehab potential at this point. 4. Severe hypercalcemia on admission, secondary to severe dehydration, normalized after IV fluids. 5. Significant weakness and deconditioning, secondary to ongoing previous hypercalcemia as well as anemia and chronic hospitalization. 6. Altered mental status from hypercalcemia, showing improvement, although with severe sundowner's despite normalization of his calcium levels. 7. Chronic constipation. 8. Acute weight loss. 9. Diabetes mellitus, type 2. PLAN: We will plan to meet with the family in the morning with Farrah, our clinical social work aide, around 10 o'clock to discuss Mr. Brandon's current clinical condition and assist in discharge planning with hopefully placing the patient into a care facility where he can be safely cared for unless the family can provide for 24 hour sitting coverage. He needs close clinical followup within the next week or so with Dr. Torres in regards to the findings of the new diagnosis of multiple myeloma to discuss treatment plan between the family, Dr. Torres, and Dr. Miller. Until discharge, with pending placement and consultation with family tomorrow, we will continue to monitor the patient closely and treat appropriately. #[id number] [facility]
[2017-02-12] MEDS: IV SET AND CAP CHANGE INJ INJ SCH (11:00)
[2017-02-12 20:06] VITALS: BP 118/73; TEMP 97.6; O2SAT 95
[2017-02-13] MEDS: DEX 5% W/NACL 0.9% 1000ML 1,000 ML IVS PRN (09:01)
[2017-02-13] MEDS: SODIUM CHLORIDE 0.45% 1000ML 1,000 ML IVS PRN (14:03)
== END 2017-02-12 15:20 | DRG 641 ==
LOC: MS 10:05
PROVIDERS: ADMIT Nurse Practitioner Family; ATTEND Nurse Practitioner Family
DX: E83.52 Hypercalcemia (principal); F05 Delirium due to known physiological condition; C90.00 Multiple myeloma not having achieved remission; E86.0 Dehydration; I10 Essential (primary) hypertension; I25.10 Atherosclerotic heart disease of native coronary artery without angina pectoris; R63.4 Abnormal weight loss; K59.00 Constipation, unspecified; R01.1 Cardiac murmur, unspecified; R33.9 Retention of urine, unspecified; D50.0 Iron deficiency anemia secondary to blood loss (chronic); R62.7 Adult failure to thrive; R53.1 Weakness; K59.09 Other constipation; E11.49 Type 2 diabetes mellitus with other diabetic neurological complication; I49.1 Atrial premature depolarization; R07.9 Chest pain, unspecified; T38.0X5A Adverse effect of glucocorticoids and synthetic analogues, initial encounter; Y92.230 Patient room in hospital as the place of occurrence of the external cause; Z66 Do not resuscitate; Z85.46 Personal history of malignant neoplasm of prostate; Z92.3 Personal history of irradiation; Z87.891 Personal history of nicotine dependence; Z86.14 Personal history of Methicillin resistant Staphylococcus aureus infection; Z79.84 Long term (current) use of oral hypoglycemic drugs; Z98.890 Other specified postprocedural states; Z68.24 Body mass index [BMI] 24.0-24.9, adult

== ENCOUNTER → 2017-02-15 | Outpatient (CLI) | payer MEDICARE | LOC: GT 19:09 | PROVIDERS: ATTEND Family Medicine | DX: N39.0 Urinary tract infection, site not specified (principal); R41.0 Disorientation, unspecified ==

== ENCOUNTER → 2017-02-19 | Outpatient (CLI) | payer MEDICARE | END | disposition home or self-care (01) | LOC: GMAM 11:23 | PROVIDERS: ATTEND Family Medicine | DX: R06.02 Shortness of breath (principal) ==

== ENCOUNTER 2017-02-23 00:57 | Emergency (ER) | payer MEDICARE ==
[2017-02-23] MEDS ORDERED: SODIUM CHLORIDE 0.9% 10 ML VIAL ONE (01:17)
[2017-02-23] MEDS ORDERED: MORPHINE SULFATE INJ 10 MG/ML VIAL IV ONE ×2 (01:29→02:24)
[2017-02-23] MEDS ORDERED: MORPHINE SULFATE INJ 10 MG/ML VIAL ONE (01:30)
--- NOTE | 2017-02-23 01:48 | RAD ---
EXAM: Single view chest. INDICATION: Chest pain. COMPARISON: Chest x-ray: 02/11/2016. FINDINGS: Cardiac silhouette: At the upper limit of normal in size Dari: Unremarkable. Lobar consolidation: None. Pleural effusion: None. Pneumothorax: None. Other: There are bibasilar interstitial opacities Bones: Unremarkable. Other: None. IMPRESSION: Bibasilar interstitial opacities, which may represent atelectasis or pneumonia Electronically signed by: Kurtis Payne MD 02/23/2017 1:47 AM CDT Workstation: [id number]
[2017-02-23] MEDS ORDERED: DEXTROSE 50% 25 GM/50 ML SYG IV ONE (02:15)
[2017-02-23] MEDS ORDERED: INSULIN, REG.(HUMAN) 100 U/ML VIAL SUBCU ONE (02:16)
[2017-02-23] MEDS ORDERED: diphenhydrAMINE HCL 50 MG/ML VIAL ONE (02:52)
[2017-02-23] MEDS ORDERED: NOREPINEPHRINE BITARTRATE 4 MG/4 ML VIAL IVPB ONE (02:52)
[2017-02-23] MEDS ORDERED: ALBUTEROL SULFATE 2.5 MG/3 ML VIAL NEB ONE ×2 (02:53→03:20)
[2017-02-23] MEDS ORDERED: raNITIdine HCL INJ 25 MG/ML VIAL ONE (02:54)
[2017-02-23] MEDS ORDERED: DEXTROSE 5% 250ML 250 ML ONE (02:54)
[2017-02-23] MEDS ORDERED: SODIUM CHLORIDE 0.9% 50ML 50 ML ONE (02:55)
[2017-02-23] MEDS ORDERED: diphenhydrAMINE HCL 50 MG/ML VIAL IV ONE (02:56)
[2017-02-23] MEDS ORDERED: raNITIdine HCL INJ 50 MG in SODIUM CHLORIDE 0.9% 50ML 50 ML IVPB ONE (02:57)
--- NOTE | 2017-02-23 03:01 | CT ---
EXAM: CT abdomen and pelvis without contrast. INDICATION: Abdominal pain, acute. TECHNIQUE: Contiguous axial CT images of the abdomen and pelvis. Intravenous contrast: Absent. Oral contrast: Absent. DLP 685 mGy-cm. This exam was performed according to our departmental dose-optimization program, which includes automated exposure control, adjustment of the mA and/or kV according to patient size and/or use of iterative reconstruction technique. COMPARISON: 09/16/2016. FINDINGS: Lower chest: Partially imaged. Lung bases: There are consolidations along the dependent portions of the lower lobes Cardiac apex: Unremarkable. Solid abdominal viscera: Limited by lack of intravenous contrast. Liver: Unremarkable. Gallbladder: Unremarkable. Pancreas: Unremarkable. Spleen: Unremarkable. Adrenal glands: Unremarkable. Right kidney: There is a 1 cm nonobstructing stone along the lower pole. There is no hydronephrosis. Left kidney: No urolithiasis or hydronephrosis. Urinary bladder: Valdez catheter in place Abdominal aorta: Atherosclerotic calcifications Peritoneal: Free fluid: None. Free air: None. Other: No pathologic sized lymph nodes in the upper abdomen. Bowel: Stomach: Unremarkable. Small bowel: Unremarkable. Appendix: Unremarkable. Colon: Unremarkable. Rectum: Unremarkable. Prostate: Brachytherapy seeds are noted Bones: There is multilevel spondylosis IMPRESSION: Nonobstructing 1 cm stone along the lower pole of the right kidney. Consolidations along the dependent portions of the left lower lobe, likely representing atelectasis or possibly pneumonia. Electronically signed by: Kurtis Payne MD 02/23/2017 3:00 AM CDT Workstation: [id number]
--- NOTE | 2017-02-23 03:03 | CT ---
EXAM: CT lumbar spine without contrast. INDICATION: Lumbar pain. TECHNIQUE: Contiguous axial CT images of the lumbar spine. Intravenous contrast: Absent. Reformats: MPRs created and utilized. DLP 895 mGy-cm. This exam was performed according to our departmental dose-optimization program, which includes automated exposure control, adjustment of the mA and/or kV according to patient size and/or use of iterative reconstruction technique. COMPARISON: None. FINDINGS: Alignment: Preserved. Fracture: No acute fracture or subluxation. There is mild chronic anterior wedging of L1 and L2. Spondylosis: Multilevel spondylosis, worst at L5-S1 with disc space narrowing, endplate sclerosis and marginal osteophytes. Other: There is a 1 cm nonobstructing stone along the lower pole the right kidney. IMPRESSION: 1. No CT evidence of acute osseous injury of the lumbar spine. 2. Nonobstructing right-sided nephrolithiasis Electronically signed by: Kurtis Payne MD 02/23/2017 3:02 AM CDT Workstation: [id number]
[2017-02-23] MEDS ORDERED: cefTRIAXone SODIUM 1 GM in SODIUM CHL 0.9% 50ML MIN-BAG+ 50 ML IVPB ONE (03:04)
[2017-02-23] MEDS ORDERED: AZITHROMYCIN IV 500 MG in SODIUM CHLORIDE 0.9% 250ML 250 ML IVPB ONE (03:05)
--- NOTE | 2017-02-23 03:05 | CT ---
EXAM: CT thoracic spine without contrast. INDICATION: Thoracic spine pain. TECHNIQUE: Contiguous axial CT images of the thoracic spine. Intravenous contrast: Absent. Reformats: MPRs created and utilized. DLP 774 mGy-cm. This exam was performed according to our departmental dose-optimization program, which includes automated exposure control, adjustment of the mA and/or kV according to patient size and/or use of iterative reconstruction technique. COMPARISON: None. FINDINGS: Alignment: Preserved. Fracture: No acute fracture or subluxation. Spondylosis: There is multilevel spondylosis with mild disc space narrowing with anterior osteophytes. Other: There are consolidations along the dependent portions of the lower lobes IMPRESSION: 1. No CT evidence of acute osseous injury of the thoracic spine. 2. Consolidations involving the dependent portions of the lower lobes, likely representing atelectasis or possibly pneumonia. Electronically signed by: Kurtis Payne MD 02/23/2017 3:04 AM CDT Workstation: [id number]
[2017-02-23] MEDS ORDERED: SODIUM CHL 0.9% 50ML MIN-BAG+ 50 ML IVPB ONE (03:08)
[2017-02-23] MEDS ORDERED: AZITHROMYCIN IV 500 MG VIAL IVPB ONE (03:08)
[2017-02-23] MEDS ORDERED: cefTRIAXone SODIUM 1 GM VIAL ONE (03:08)
[2017-02-23] MEDS ORDERED: NOREPINEPHRINE BITARTRATE 4 MG in DEXTROSE 5% 250ML 250 ML IVPB SCH (03:15)
[2017-02-23 03:21] VITALS: O2SAT 100
--- NOTE | 2017-02-23 03:27 | ED.PDOC ---
History of Present Illness - General Chief Complaint: Respiratory Problem Time Seen by Provider: 02/23/17 00:57 Source: patient, family, skilled nursing records Exam Limitations: clinical condition - History of Present Illness Initial Comments: Patient is an 81 yo M with multiple myeloma, CHF, s/s AMI x 2 with PTCA, NIDDM but on temporary insulin due to steroid treatment for multiple myeloma, and CKI that presents with back pain from the skilled nursing. He was given tylenol 4 and lortab as well as ativan but became very agitated. He is unable to give exact details of how and when the pain started but does answer the question "where is your pain" with "in my back". Other than that, he has no other complaints. The skilled nursing reports that his oxygen saturations were in the 80s. EMS started him on oxygen and got him into the 90s. No other information is available. Timing/Duration: intermittent Severity: moderate Improving Factors: rest Worsening Factors: movement Associated Symptoms: other - no other history available Allergies/Adverse Reactions: Allergies NO KNOWN ALLERGY Allergy (Verified 09/09/16 18:47) Home Medications: Ambulatory Orders Cyanocobalamin [Vitamin B-12 Cr] 1,000 mcg PO DAILY 03/04/16 Lovastatin 40 mg PO DAILY 03/04/16 Metoprolol Tartrate 25 mg PO BID 03/04/16 Ramipril [Altace] 5 mg PO DAILY 03/04/16 Tamsulosin [Flomax] 0.4 mg PO DAILY 03/04/16 Omeprazole Magnesium [Prilosec Otc] 20 mg PO BID #60 tab 03/05/16 Umeclidinium-Vilanterol [Anoro Ellipta 62.5-25 Mcg/INH] 1 aer INH DAILY Spironolactone [Aldactone] 25 mg PO DAILY 01/27/17 glyBURIDE [Diabeta] 10 mg PO DAILYBK 01/27/17 Alum & Mag Hydrox-Simethicone [Mylanta] 30 ml PO Q4H PRN 02/12/17 Docusate Sodium [Colace] 100 mg PO DAILY 02/12/17 LORazepam [Ativan] 1 mg PO BEDTIME 02/12/17 Magnesium Hydroxide [Milk Of Magnesia] 30 ml PO DAILY PRN 02/12/17 QUEtiapine FUMARATE [Seroquel] 50 mg PO BID 02/12/17 diphenhydrAMINE HCL [Benadryl] 25 mg IV Q4H PRN 02/12/17 Albuterol Sulfate Nebs 1 neb NEB Q8HRS PRN 02/23/17 Albuterol Sulfate Nebs 1 neb NEB QID 02/23/17 Lasix Tab 20 mg PO DAILY 02/23/17 Floweree 7.5/325 1 tablet PO Q6HRS PRN 02/23/17 Phenergan Tablet 25 mg PO Q4HR PRN 02/23/17 Potassium Chloride 8 meq PO DAILY 02/23/17 Xanax 1 mg PO Q6HRS PRN 02/23/17 Review of Systems - Review of Systems Constitutional: States: see HPI EENTM: States: no symptoms reported Musculoskeletal: States: back pain Unable to Obtain Due To: condition, clinical condition Past Medical History (General) - Patient Medical History Hx Seizures: No Hx Stroke: Yes Hx Dementia: No Hx Asthma: No Hx of COPD: Yes Hx Cardiac Disorders: Yes - DC x 2 Hx Congestive Heart Failure: Yes Hx Pacemaker: No Hx Hypertension: Yes Hx Thyroid Disease: No Hx Diabetes: Yes Hx Gastroesophageal Reflux: Yes Hx Renal Disease: No Hx Cancer: Yes - Prostate Hx of HIV: No Hx Hepatitis C: No Hx MRSA: Yes MRSA Source:: Wound - Vaccination History Hx Tetanus, Diphtheria Vaccination: Yes Hx Influenza Vaccination: Yes Hx Pneumococcal Vaccination: Yes Immunizations Up to Date: Yes - Social History Hx Tobacco Use: No - quit 47 years ago Hx Chewing Tobacco Use: No Hx Alcohol Use: No Hx Substance Use: No Hx Substance Use Treatment: No Hx Depression: No Feels Threatened In Home Enviroment: No Feels Threatened In a Relationship: No Hx Physical Abuse: No Hx Emotional Abuse: No Hx Suspected Abuse: No - Activities of Daily Living [facility]Assisted Living (if applicable):: [facility] Agency (if applicable):: None - Female History Patient : No Family Medical History - Family History Father Family History: Unknown Living Status: Hx Family Cancer: Yes - unknown cause Physical Exam - Physical Exam General Appearance: Obvious distress Eye Exam: bilateral normal Ears, Nose, Throat: normal ENT inspection Neck: non-tender, full range of motion, supple Respiratory: rhonchi - bilateral Cardiovascular/Chest: normal peripheral pulses, tachycardia Gastrointestinal/Abdominal: normal bowel sounds, non tender, soft Extremity: no pedal edema Neurologic: other - patient unable or unwilling to cooperate with exam Skin Exam: normal color Progress - Progress Progress: 02/23/17 03:28 Patient received morphine 4 mg IV x one. CT ab/pelvis, lumbar, and thorax failed to show a reason for his back pain. potassium was 6.1 so he was given one amp D50 with 10 units human insulin subq. CXR showed bibasilar atelectasis vs. PNA so he was started on rocephin 1 gram IV and azithromycin 500 mg IV x one. His sbp dropped to 72 after a second dose of morphine so he was given benadryl 25 mg IV x one and zantac 50 mg IV x one. The pressure corrected to 150 systolic but then shortly fell to the 80s. Levaphed titration was started. Fluid not given at this point due to BNP of 720 and hypoxia. Recheck of potassium was 6.1 so he was given a 500 cc NS bolus. Transfer to [facility] was accepted. Laboratory Tests 02/23/17 02/23/17 02/23/17 01:15 01:15 01:30 WBC 10.9 H RBC 2.82 L Hgb 8.9 L Hct 27.2 L MCV 96.4 H MCH 31.5 H MCHC 32.9 L RDW 15.8 H Plt Count 240 MPV 7.6 Absolute Neuts (auto) 8.40 H Absolute Lymphs (auto) 1.60 Absolute Monos (auto) 0.70 Absolute Eos (auto) 0.10 Absolute Basos (auto) 0.10 Neutrophils % 77.0 Lymphocytes % 15.1 L Monocytes % 6.3 Eosinophils % 1.1 Basophils % 0.5 PT INR PTT (SP) Sodium Potassium Chloride Carbon Dioxide Anion Gap BUN Creatinine BUN/Creatinine Ratio POC Glucose 157 H Random Glucose Serum Osmolality Lactic Acid Calcium Total Bilirubin AST ALT Alkaline Phosphatase Creatine Kinase CK-MB (CK-2) CK-MB (CK-2) % Troponin I B-Natriuretic Peptide Serum Total Protein Albumin Globulin Albumin/Globulin Ratio Urine Color Yellow Urine Appearance Cloudy Urine pH 5.0 Ur Specific [place] 1.025 Urine Protein 100 H Urine Glucose (UA) Negative Urine Ketones Negative Urine Blood Large H Urine Nitrite Negative Urine Bilirubin Small H Urine Urobilinogen 0.2 Ur Leukocyte Esterase Negative Urine RBC >50 H Urine WBC 5-10 H Ur Epithelial Cells 1-3 Uric Acid Crystals 2+ Amorphous Sediment 2+ Urine Bacteria 1+ Coarse Granular Casts 0-1 Urine Mucus Trace 02/23/17 02/23/17 02/23/17 01:30 01:30 01:30 WBC RBC Hgb Hct MCV MCH MCHC RDW Plt Count MPV Absolute Neuts (auto) Absolute Lymphs (auto) Absolute Monos (auto) Absolute Eos (auto) Absolute Basos (auto) Neutrophils % Lymphocytes % Monocytes % Eosinophils % Basophils % PT 14.4 H INR 1.280 PTT (SP) 31.1 Sodium 136 Potassium 6.1 H Chloride 110 Carbon Dioxide 18 L Anion Gap 14.1 BUN 61 H Creatinine 2.55 H BUN/Creatinine Ratio 23.9 H POC Glucose Random Glucose 143 H Serum Osmolality 291.7 Lactic Acid Calcium 8.1 L Total Bilirubin 0.4 AST 13 ALT 15 Alkaline Phosphatase 66 Creatine Kinase 109 CK-MB (CK-2) 4.6 H* CK-MB (CK-2) % Not Reportable Troponin I 0.03 B-Natriuretic Peptide 720.0 H* Serum Total Protein 8.5 H Albumin 2.4 L Globulin 6.1 H Albumin/Globulin Ratio 0.4 L Urine Color Urine Appearance Urine pH Ur Specific Renault Urine Protein Urine Glucose (UA) Urine Ketones Urine Blood Urine Nitrite Urine Bilirubin Urine Urobilinogen Ur Leukocyte Esterase Urine RBC Urine WBC Ur Epithelial Cells Uric Acid Crystals Amorphous Sediment Urine Bacteria Coarse Granular Casts Urine Mucus 02/23/17 02/23/17 03:00 03:15 WBC RBC Hgb Hct MCV MCH MCHC RDW Plt Count MPV Absolute Neuts (auto) Absolute Lymphs (auto) Absolute Monos (auto) Absolute Eos (auto) Absolute Basos (auto) Neutrophils % Lymphocytes % Monocytes % Eosinophils % Basophils % PT INR PTT (SP) Sodium 133 L Potassium 6.1 H Chloride 110 Carbon Dioxide 17 L Anion Gap 12.1 BUN 63 H Creatinine 2.60 H BUN/Creatinine Ratio 24.2 H POC Glucose Random Glucose 288 H D Serum Osmolality 294.9 Lactic Acid 1.2 Calcium 7.9 L Total Bilirubin AST ALT Alkaline Phosphatase Creatine Kinase CK-MB (CK-2) CK-MB (CK-2) % Troponin I B-Natriuretic Peptide Serum Total Protein Albumin Globulin Albumin/Globulin Ratio Urine Color Urine Appearance Urine pH Ur Specific Ren[place] Urine Protein Urine Glucose (UA) Urine Ketones Urine Blood Urine Nitrite Urine Bilirubin Urine Urobilinogen Ur Leukocyte Esterase Urine RBC Urine WBC Ur Epithelial Cells Uric Acid Crystals Amorphous Sediment Urine Bacteria Coarse Granular Casts Urine Mucus - EKG/XRAY/CT CT Ordered: No Departure - Departure Clinical Impression: Hypoxia, Pneumonia, CHF (congestive heart failure), Hyperkalemia, Chronic kidney disease (CKD), Multiple myeloma, Hypotension, Diabetes 1.5, managed as type 2 Disposition: Transfer to Hospital Condition: Fair Departure Forms: ED Discharge - Pt. Copy, Patient Portal Self Enrollment Diet: other - as per hospitalist Activity: other - as per hospitalist Referrals: Britton Miller MD [Primary Care Provider] - 1-2 Weeks Home Medications: Ambulatory Orders Cyanocobalamin [Vitamin B-12 Cr] 1,000 mcg PO DAILY 03/04/16 Lovastatin 40 mg PO DAILY 03/04/16 Metoprolol Tartrate 25 mg PO BID 03/04/16 Ramipril [Altace] 5 mg PO DAILY 03/04/16 Tamsulosin [Flomax] 0.4 mg PO DAILY 03/04/16 Omeprazole Magnesium [Prilosec Otc] 20 mg PO BID #60 tab 03/05/16 Umeclidinium-Vilanterol [Anoro Ellipta 62.5-25 Mcg/INH] 1 aer INH DAILY Spironolactone [Aldactone] 25 mg PO DAILY 01/27/17 glyBURIDE [Diabeta] 10 mg PO DAILYBK 01/27/17 Alum & Mag Hydrox-Simethicone [Mylanta] 30 ml PO Q4H PRN 02/12/17 Docusate Sodium [Colace] 100 mg PO DAILY 02/12/17 LORazepam [Ativan] 1 mg PO BEDTIME 02/12/17 Magnesium Hydroxide [Milk Of Magnesia] 30 ml PO DAILY PRN 02/12/17 QUEtiapine FUMARATE [Seroquel] 50 mg PO BID 02/12/17 diphenhydrAMINE HCL [Benadryl] 25 mg IV Q4H PRN 02/12/17 Albuterol Sulfate Nebs 1 neb NEB Q8HRS PRN 02/23/17 Albuterol Sulfate Nebs 1 neb NEB QID 02/23/17 Lasix Tab 20 mg PO DAILY 02/23/17 Floweree 7.5/325 1 tablet PO Q6HRS PRN 02/23/17 Phenergan Tablet 25 mg PO Q4HR PRN 02/23/17 Potassium Chloride 8 meq PO DAILY 02/23/17 Xanax 1 mg PO Q6HRS PRN 02/23/17
[2017-02-23] MEDS ORDERED: SODIUM CHLORIDE 0.9% 500ML 500 ML ONE (03:38)
[2017-02-23] MEDS ORDERED: SODIUM CHLORIDE 0.9% 1000ML 500 ML IVS ONE (03:45)
[2017-02-23 03:55] VITALS: TEMP 97.8
[2017-02-23 04:41] VITALS: BP 121/55
== END 2017-02-23 04:20 | disposition short-term general hospital (02) ==
LOC: ER 00:57
DX: J18.9 Pneumonia, unspecified organism (principal); R09.02 Hypoxemia; I13.0 Hypertensive heart and chronic kidney disease with heart failure and stage 1 through stage 4 chronic kidney disease, or unspecified chronic kidney disease; I50.9 Heart failure, unspecified; N18.9 Chronic kidney disease, unspecified; E11.9 Type 2 diabetes mellitus without complications; E87.5 Hyperkalemia; C90.00 Multiple myeloma not having achieved remission; I95.9 Hypotension, unspecified; I25.2 Old myocardial infarction; K21.9 Gastro-esophageal reflux disease without esophagitis; Z98.61 Coronary angioplasty status; Z79.899 Other long term (current) drug therapy
CPT/HCPCS: 36415; 36416; 71010; 72128; 72131; 74176; 80048; 80053; 81001; 82550; 82553; 82948; 83605; 83880; 84484; 85025; 85610; 85730; 87040; 93005; 94640; A4216; J0456; J0696; J1200; J2270; J2780; J7040; J7050; J7060; J7611; J7799

== ENCOUNTER 2017-02-24 18:40 | Inpatient (IN) | payer MEDICARE, OTHER ==
[~2017-02-24 18:40] MED LIST: HALOPERIDOL LACTATE INJ 5 MG/ML VIAL IM ONE
[2017-02-24] MEDS ORDERED: HALOPERIDOL LACTATE INJ 5 MG/ML VIAL IM ONE (19:00)
[2017-02-24] MEDS ORDERED: ACETAMINOPHEN SUPPOSITORY 650 MG PR PRN (19:41)
[2017-02-24] MEDS: SODIUM CHLORIDE 0.9% (FLUSH) 10 ML SYG IV SCH (19:53)
[2017-02-24] MEDS: MORPHINE SULFATE INJ 10 MG/ML VIAL IV PRN ×2 (19:54→23:50)
[2017-02-24] MEDS: SCOPOLAMINE PATCH 1.5MG 1 EA TD SCH (21:14)
[2017-02-24] MEDS: DEX 5% W/NACL 0.45% 1000ML 1,000 ML IVS PRN (23:16)
[2017-02-25] MEDS: HALOPERIDOL LACTATE INJ 5 MG/ML VIAL IM PRN (06:49)
[2017-02-25] MEDS: MORPHINE SULFATE INJ 10 MG/ML VIAL IV PRN ×7 (06:50→22:26)
--- NOTE | 2017-02-25 08:07 | HP ---
HISTORY OF PRESENT ILLNESS: This 81-year-old, white male was brought to the Emergency Room on 02/23/17 at approximately midnight with back pain, delirium and confusion state. He was found to have what appeared to be a bibasilar pneumonia as well as advanced and severe metabolic acidosis with shock state and a very low blood pressure. He was in acute renal injury with failure and an elevated potassium of 6.1. BUN was up to 63 and creatinine josiane up to 2.6. His sugars were almost 300 and his beta natriuretic peptide was 720. He had cultures obtained and blood cultures are still negative. He was started on antibiotics which included ceftriaxone and azithromycin parenterally. He had to be started on Levophed and was transferred on an emergent basis to [facility] for intensive care and stabilization. At [facility], he had continued severe delirium, yelling and confused state. They put an NG tube for feeding and he pulled it out. They put a Valdez catheter in and he pulled it out. Finally, he was incontinent of stools and a rectal tube was placed. His condition finally got to the point where the family was informed that his general condition with the multiple myeloma diagnosis and his general response to treatment failed and his antibiotics and IVs were stopped. He was subsequently later today on the day of admission transferred from [facility] to [facility] hospice inpatient care for care and comfort. He arrives with no IV and was quite upset and agitated. He was soon resting and breathing comfortably for the first time in two days after some Haldol was administered. History of benzodiazepine sensitivities of an undetermined type necessitated avoiding that at this time. The patient was placed on care and comfort. Discussion of his hospital stay and his recent history was performed at length with the family. A possible diagnosis of multiple myeloma having been started on high doses of corticosteroids was made a number of months ago. Apparently a definitive bone marrow aspiration has not been done because the patient's general condition and his advanced morbidity and comorbidities precluded and prevented him from having received therapy even if a definitive diagnosis was entertained. He has had a history of a symptomatic high calcium in the past treated with IV hydration. At this time, his calcium is even on the low side as also is his albumin. PAST MEDICAL HISTORY: 1. Recurring episodes of GI bleeds in the past. 2. Prostate cancer with radiation seeds placed. 3. Diabetes mellitus, type 2. 4. History of hypertension. 5. History of coronary artery disease, being followed by supervisor tellers, Dr. Armendariz. 6. History of perirectal abscess a couple of months before with ongoing wound care. PAST SURGICAL HISTORY: 1. Appendectomy. 2. Radiation seed implantation for prostate cancer. 3. Incision and drainage of a large left buttock with perirectal abscess with methicillin-resistant Staphylococcus aureus about two months before arrival. CURRENT MEDICATIONS: ALLERGIES: FAMILY HISTORY: Positive for hypertension and heart disease. SOCIAL HISTORY: The patient has worked in the [employer] and has about a 40 pack year history of smoking. REVIEW OF SYSTEMS: Unable to obtain as the patient is sleeping because of sedation to help control his delirium state. PHYSICAL EXAMINATION: VITAL SIGNS: Temperature 97.3. Pulse 123. Blood pressure 113/73. Pulse oximetry pending. Weight 68.9 kg which will need to be repeated when stabilized. GENERAL: The patient is resting in the bed after having received some Haldol which was ordered as a routine order by hospice to assist with his ongoing care. He does have a Valdez catheter and a rectal tube in place. PICC line also present. LUNGS: Generally pretty clear bilaterally with a few rhonchi laterally. CARDIOVASCULAR: Heart tones are somewhat distant. ABDOMEN: Somewhat diminished bowel tones, though no specific tenderness is evident. Nondistended. EXTREMITIES: Fairly well-formed with no significant edema state. Fair range of motion. NEUROLOGIC: The patient os obtunded, breathing regularly and deeply, in no acute distress, but unresponsive to questioning with family contributing to the history. LABORATORY: Recent laboratory studies were performed at [facility] and are as follows: pH on blood gas 7.27, hemoglobin up to 8.3 where it had been down to 7.8, white count had dropped from 14,200 to 9,700, BUN had dropped from the 60s down to 43. Calcium instead of being high was actually low at 7.7. CO2 is up from 16 to 17. Creatinine was improved from 2.18 to 1.99. Potassium was over 6 and now down to 5 this morning. Sodium 140. RADIOLOGY: Chest x-ray in our Emergency Room did reveal evidence of a bibasilar probable infiltrate, which was also documented on some studies in [facility] which also could be atelectasis. ASSESSMENT: 1. Acute bibasilar pneumonia, probable community acquired with initial blood cultures negative and apparently no sputum noted, though there was a specimen for gram stain from [facility] that showed chains of cocci, but did not specify the source of the specimen. 2. Recent hypotensive shock state, possibly related to the sepsis syndrome. 3. Acute renal injury with renal failure, showing slight improvement with fluid hydration. 4. History of hyperkalemia, showing improvement. 5. Acute delirium state, probably as a consequence of organic brain syndrome as well as underlying pneumonia, metabolic acidosis, etc. 6. History of metabolic acidosis, probably from related hypoxia with a significant illness. 7. History of presumptive multiple myeloma with no staging at this time, but the patient's general comorbidities prevent him from ever receiving any significant chemotherapy at this time, being followed by Dr. Torres. 8. Anemia, no doubt as a complication of his ongoing illness as well as myeloma. 9. Dementia state, aggravated with associated delirium. PLAN: Discussed with hospice as well as with the family. The family wishes him to be on IV therapy and will be started on D5 and half normal saline at a maintenance dose. Reevaluate in the morning. On a mechanical soft diet and see if after some rest tonight his delirium will be significantly improved. Further decisions will be made as to care and comfort. At this time, his antibiotics were stopped earlier today at [facility] and will be discussed with hospice and also with Dr. Miller, his primary care physician, as well as Dr. Alfaro, the medical receptionist for hospice. Reevaluation in the morning. #[id number] [facility]
[2017-02-25] MEDS: diphenhydrAMINE HCL 50 MG/ML VIAL IV PRN ×2 (08:28→17:20)
[2017-02-25] MEDS: SODIUM CHLORIDE 0.9% (FLUSH) 10 ML SYG IV SCH ×2 (09:06→22:24)
[2017-02-25] MEDS: DEX 5% W/NACL 0.45% 1000ML 1,000 ML IVS PRN (09:41)
[2017-02-25] MEDS ORDERED: SODIUM CHLORIDE 0.9% (FLUSH) 10 ML SYG IV PRN (09:49)
[2017-02-26] MEDS: MORPHINE SULFATE INJ 10 MG/ML VIAL IV PRN ×6 (02:53→16:18)
[2017-02-26] MEDS: diphenhydrAMINE HCL 50 MG/ML VIAL IV PRN ×3 (05:05→13:54)
[2017-02-26] MEDS: SODIUM CHLORIDE 0.9% (FLUSH) 10 ML SYG IV SCH (09:34)
[2017-02-26] MEDS: HALOPERIDOL LACTATE INJ 5 MG/ML VIAL IM PRN (10:26)
[2017-02-26] MEDS ORDERED: MORPHINE PCA 1 MG/ML 100 ML BAG IVPB ONE (17:19)
[2017-02-26] MEDS ORDERED: SODIUM CHLORIDE 0.9% 250ML 250 ML ONE (17:35)
[2017-02-26] MEDS ORDERED: ONDANSETRON INJ 4 MG/2 ML VIAL IV PRN (17:39)
[2017-02-26] MEDS: SODIUM CHLORIDE 0.9% 250ML 250 ML IVS PRN (17:54)
[2017-02-26] MEDS: MORPHINE PCA 1 MG/ML 100 ML BAG IVPB SCH (17:55)
[2017-02-26] MEDS ORDERED: MORPHINE PCA 1 MG/ML 100 ML BAG IVPB SCH (18:00)
[2017-02-27] MEDS: SODIUM CHLORIDE 0.9% (FLUSH) 10 ML SYG IV SCH ×3 (01:41→20:36)
[2017-02-27] MEDS: SODIUM CHLORIDE 0.9% 250ML 250 ML IVS PRN ×2 (05:02→16:34)
[2017-02-27] MEDS: diphenhydrAMINE HCL 50 MG/ML VIAL IV PRN ×4 (05:02→22:41)
[2017-02-27] MEDS ORDERED: IV SET AND CAP CHANGE INJ INJ SCH (09:00)
[2017-02-27] MEDS: SCOPOLAMINE PATCH 1.5MG 1 EA TD SCH (20:36)
[2017-02-27] MEDS: MORPHINE PCA 1 MG/ML 100 ML BAG IVPB SCH (22:41)
[2017-02-28] MEDS: diphenhydrAMINE HCL 50 MG/ML VIAL IV PRN ×2 (03:10→09:53)
[2017-02-28] MEDS: SODIUM CHLORIDE 0.9% 250ML 250 ML IVS PRN (04:41)
[2017-02-28 08:45] VITALS: BP 126/75; TEMP 97
[2017-02-28] MEDS: SODIUM CHLORIDE 0.9% (FLUSH) 10 ML SYG IV SCH (09:12)
[2017-02-28 13:27] VITALS: O2SAT 97
--- NOTE | 2017-04-11 20:16 | DS ---
FINAL DIAGNOSIS: 1. Acute bibasilar pneumonia probable community acquired with sputum showing chains of cocci with the patient apparently immunocompromised from his underlying multiple myeloma contributing to his final illness. 2. Recent hypotensive shock state possibly related to sepsis syndrome with the underlying pneumonia. 3. Acute renal injury with renal failure showing slight improvement with fluid hydration initially noted. 4. History of hyperkalemia. 5. Acute delirium state as a result of organic brain syndrome aggravated by underlying pneumonia, metabolic acidosis and multiple myeloma. 6. History of metabolic acidosis probably related to the significant hypoxia. 7. Diagnosis of multiple myeloma with the patient's general co-morbidities preventing final diagnosis and/or the option of treatment intervention no doubt contributing to an immunocompromised state contributing to the above-mentioned illnesses. 8. Chronic anemia with history of gastrointestinal bleeding. 9. History of dementia aggravated with associated delirium. HISTORY OF PRESENT ILLNESS: This 81 year-old white male was brought into the Emergency Room at [facility] on 02/23/17 with significant symptoms of septic shock and was transferred to [facility] to the ICU for specific support and intervention as possible. Intervention failed to show improvement and the patient pulled Valdez catheters as well as feeding tubes out, and after discussion with Oncology Service and Nephrology Service, the patient was eventually discharged the next day, 02/24/17, back to [facility] [place] [place] for hospice care and comfort. The family was well informed and were in agreement at this time because of the significance of the patient's illness. Upon his arrival, he was generally unresponsive and persisted in the same during his hospital course. The patient was introduced and managed by the hospice nurses under Dr. Alfaro's supervision. Please refer to Hospice notes for an ongoing complete summation of the days in the hospital. LABORATORY: Cultures and x-rays, none were performed at this time. HOSPITAL COURSE: The patient was placed on a TKO status of IV fluids and was monitored with care and comfort measures under hospice nurses' supervision with Dr. Alfaro's concurrence. The patient's condition failed to improve and his respirations and cardiac activity eventually ceased, and the patient was officially pronounced by the hospice nurse on the evening on 02/28/[address] Alfaro to sign and to fill out the Certificate. Family was present. #[id number] [facility]
== END 2017-02-28 19:01 | disposition expired | DRG 871 ==
LOC: MS 18:40
PROVIDERS: ADMIT Emergency Medicine; ATTEND Nurse Practitioner Family
DX: A41.9 Sepsis, unspecified organism (principal); J18.9 Pneumonia, unspecified organism; R57.9 Shock, unspecified; N17.9 Acute kidney failure, unspecified; E87.2 Acidosis; F05 Delirium due to known physiological condition; C90.00 Multiple myeloma not having achieved remission; I95.9 Hypotension, unspecified; E87.5 Hyperkalemia; R09.02 Hypoxemia; D63.8 Anemia in other chronic diseases classified elsewhere; F03.90 Unspecified dementia, unspecified severity, without behavioral disturbance, psychotic disturbance, mood disturbance, and anxiety; F17.210 Nicotine dependence, cigarettes, uncomplicated; E11.9 Type 2 diabetes mellitus without complications; I10 Essential (primary) hypertension; I25.10 Atherosclerotic heart disease of native coronary artery without angina pectoris; Z66 Do not resuscitate; Z51.5 Encounter for palliative care; Z92.3 Personal history of irradiation; Z85.46 Personal history of malignant neoplasm of prostate; Z78.1 Physical restraint status; D50.0 Iron deficiency anemia secondary to blood loss (chronic)